=== PATIENT | male | born 1950 | race Caucasian/White ===

== ENCOUNTER 2017-11-16 18:08 | Emergency (ER) | payer OTHER ==
--- OUTSIDE RECORDS SUMMARY | 2017-11-16 18:10 | XMS REPORT ---
:1950 [facility] Address [address] [place] [address] Dr. Kwon [address] [place] [id number] Care Team Providers Name Role Phone DR COLLEEN BUTTS Unavailable Unavailable Problems This patient has no known problems. Allergies, Adverse Reactions, Alerts This patient has no known allergies or adverse reactions. Medications This patient has no known medications. Encounters Start End Encounter Admission Attending Care Care Encounter Date/Time Date/Time Type Type Clinicians Facility Department ID 2017-01-23 Inpatient [facility] RAD [id number] 08:00:00 MUSTAQ Results Test Description Test Time Test Comments Text Results Atomic Results Result Comments NM GASTRIC EMPTYING 2017-01-27 22:13:14 Examination: Nuclear medicine gastric STUDY W ISOTOPE emptying studyLocation code: [id number]: NoneDiscussion:Clinical history is remarkable for nausea, decreased appetite. After the oraladministration of 1.6 mCi of technetium 99m labeled sulfur colloid scrambledegg, dynamic [place] imaging is performed. Time to one half emptying is 27 minutes,rapid emptying.Impression:1. No evidence of gastroparesis. The emptying time slightly rapid.
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
[2017-11-16] MEDS ORDERED: HYDROCODONE/APAP 5/325 MG TAB ONE (22:28)
[2017-11-16 22:32] VITALS: TEMP 98.8
[2017-11-16 22:34] VITALS: BP 185/93; O2SAT 100
== END 2017-11-16 22:28 | disposition home or self-care (01) ==
LOC: ER 18:08
DX: M50.10 Cervical disc disorder with radiculopathy, unspecified cervical region (principal); V49.49XA Driver injured in collision with other motor vehicles in traffic accident, initial encounter; Z79.4 Long term (current) use of insulin; I10 Essential (primary) hypertension; E11.9 Type 2 diabetes mellitus without complications; E78.5 Hyperlipidemia, unspecified
CPT/HCPCS: 70450; 72125; 99284

== ENCOUNTER 2017-12-01 18:46 | Inpatient (IN) | payer OTHER ==
--- OUTSIDE RECORDS SUMMARY | 2017-12-01 18:48 | XMS REPORT ---
:1950 [facility] Address [address] [place] [address] Dr. Kwon [address] [place] [address] Care Team Providers Name Role Phone DR COLLEEN BUTTS Unavailable Unavailable Problems This patient has no known problems. Allergies, Adverse Reactions, Alerts This patient has no known allergies or adverse reactions. Medications This patient has no known medications. Encounters Start End Encounter Admission Attending Care Care Encounter Date/Time Date/Time Type Type Clinicians Facility Department ID 2017-01-23 Inpatient [facility] RAD [id number] 08:00:00 MUSTAQ Results Test Description Test Time Test Comments Text Results Atomic Results Result Comments NM GASTRIC EMPTYING 2017-01-27 22:13:14 Examination: Nuclear medicine gastric STUDY W ISOTOPE emptying studyLocation code: [id number]: NoneDiscussion:Clinical history is remarkable for nausea, decreased appetite. After the oraladministration of 1.6 mCi of technetium 99m labeled sulfur colloid scrambledegg, dynamic [place] imaging is performed. Time to one half emptying is 27 minutes,rapid emptying.Impression:1. No evidence of gastroparesis. The emptying time slightly rapid.
[2017-12-01] MEDS ORDERED: PANTOPRAZOLE 40 MG INJ ONE ×2 (19:37→20:24)
[2017-12-01] MEDS ORDERED: NA CHLORIDE 0.9% 1,000 ML ONE (19:37)
--- NOTE | 2017-12-01 19:50 | RAD REPORT ---
EXAM DESCRIPTION: CT - Head Brain Wo Cont - 12/01/2017 7:41 pm CLINICAL HISTORY: Dizziness, syncope COMPARISON: 11/16/2017 TECHNIQUE: All CT scans are performed using dose optimization technique as appropriate and may inclu de automated exposure control or mA/KV adjustment according to patient size. FINDINGS: No intracranial hemorrhage, hydrocephalus or extra-axial fluid collection.No areas of brai n edema or evidence of midline shift. The paranasal sinuses and mastoids are clear. The calvarium is intact. IMPRESSION: No acute intracranial abnormality.
--- NOTE | 2017-12-01 19:52 | RAD REPORT ---
EXAM DESCRIPTION: RAD - Chest Single View - 12/01/2017 7:46 pm CLINICAL HISTORY: Shortness of breath COMPARISON: 01/07/2017 FINDINGS: Portable technique limits examination quality. Moderate pleural and parenchymal opacification is in right lung base, most likely representing pneumo carloz. A small amount of left pleural fluid also likely present. The heart is upper limit normal size. No displaced fractures. IMPRESSION: Right lower lobe pneumonia.
[2017-12-01 19:58] LABS: Absolute Lymphocytes (CBC) 1.3 K/uL (0.7-4.9); Basophils % 0.5 % (0-1.3); MPV 7.3 fL (7.6-11.3)
[2017-12-01 20:03] LABS: Absolute Monocytes 0.7 K/uL (0.1-1.3); Eosinophils % 4.2 % (0-4.4); Hematocrit 22.7 % (39.6-49.0); Lymphocytes % 17.8 % (15.3-44.8); MCH 31.5 pg (27.0-35.0); MCV 93.3 fL (80-100); Monocytes % 9.2 % (3.3-12.3); RBC Red Blood Cell Count 2.43 M/uL (4.33-5.43)
[2017-12-01] MEDS ORDERED: ASPIRIN 81 MG CHEWABLE TABLET ONE (20:04)
[2017-12-01 20:05] LABS: Urine Blood TRACE (NEG); Urine Glucose TRACE (NEG); Urine Protein 3+ (NEG); Urine Specific Gravity 1.025 (1.005-1.030)
[2017-12-01 20:06] LABS: Protime INR 1.09
[2017-12-01 20:21] LABS: Potassium 4.3 mEq/L (3.6-5.0)
[2017-12-01 20:27] LABS: Albumin 2.8 g/dL (3.2-5.5); Bilirubin Direct 0.1 mg/dL (0-0.2); Bilirubin Total 0.7 mg/dL (0.3-1.2); Magnesium 1.8 mg/dL (1.8-2.5); Protein, Total 6.5 g/dL (6.0-8.3)
[2017-12-01 20:30] LABS: CKMB Creatine Kinase MB 3.9 ng/ml (0.3-4.0)
--- NOTE | 2017-12-01 20:32 | EDPHYS ---
Physician Documentation [facility] Name: Felipe Angelo Age: 67 yrs Sex: Male : 1950 Arrival Date: 12/01/2017 Time: 18:47 Bed 15 Private MD: ED Physician Yared Kate HPI: 12/01 19:27 This 67 yrs old Male presents to ER via Ambulatory with complaints of chase Shortness Of Breath. 19:27 The patient has shortness of breath at rest, with light activity. Onset: The chase symptoms/episode began/occurred 3 day(s) ago. Duration: The symptoms are continuous, and are steadily getting worse. Associated signs and symptoms: The patient has no apparent associated signs or symptoms. Severity of symptoms: At their worst the symptoms were mild moderate in the emergency department the symptoms. Historical: - Allergies: 18:54 No Known Allergies; tw2 - Home Meds: 18:54 citalopram 20 mg tab 1 tab once daily [Active]; gabapentin 400 mg Oral cap daily tw2 [Active]; insulin detemir 50 unit nightly [Active]; Lasix 80 mg Oral tab 1 tab once daily [Active]; Lipitor 80 mg Oral tab 1 tab once daily [Active]; lisinopril 40 mg Oral tab 1 tab once daily [Active]; metoprolol tartrate 50 mg Oral tab 2 times per day [Active]; - PMHx: 18:54 Diabetes - IDDM; Hyperlipidemia; Hypertension; Renal Disease; tw2 - PSHx: 18:54 amputation R R big toe; tw2 - Immunization history:: Adult Immunizations up to date. - Social history:: Smoking status: Patient uses tobacco products, smokes one pack cigarettes per day. - Family history:: not pertinent. ROS: 19:55 Constitutional: Negative for fever, chills, and weight loss, Eyes: Negative for injury, chase pain, redness, and discharge, ENT: Negative for injury, pain, and discharge, Neck: Negative for injury, pain, and swelling, Abdomen/GI: Negative for abdominal pain, nausea, vomiting, diarrhea, and constipation, Back: Negative for injury and pain, : Negative for injury, bleeding, discharge, and swelling, Skin: Negative for injury, rash, and discoloration, Neuro: Negative for headache, weakness, numbness, tingling, and seizure, Psych: Negative for depression, anxiety, suicide ideation, homicidal ideation, and hallucinations, Allergy/Immunology: Negative for hives, rash, and allergies, Endocrine: Negative for neck swelling, polydipsia, polyuria, polyphagia, and marked weight changes, Hematologic/Lymphatic: Negative for swollen nodes, abnormal bleeding, and unusual bruising. 19:55 Cardiovascular: Positive for chest pain. 19:55 Respiratory: Positive for cough, shortness of breath. 19:55 MS/extremity: Positive for swelling, of the right leg and left leg. Exam: 19:55 Constitutional: This is a well developed, well nourished patient who is awake, alert, chase and in no acute distress. Head/Face: Normocephalic, atraumatic. Eyes: Pupils equal round and reactive to light, extra-ocular motions intact. Lids and lashes normal. Conjunctiva and sclera are non-icteric and not injected. Cornea within normal limits. Periorbital areas with no swelling, redness, or edema. ENT: Nares patent. No nasal discharge, no septal abnormalities noted. Tympanic membranes are normal and external auditory canals are clear. Oropharynx with no redness, swelling, or masses, exudates, or evidence of obstruction, uvula midline. Mucous membranes moist. Neck: Trachea midline, no thyromegaly or masses palpated, and no cervical lymphadenopathy. Supple, full range of motion without nuchal rigidity, or vertebral point tenderness. No Meningismus. Chest/axilla: Normal chest wall appearance and motion. Nontender with no deformity. No lesions are appreciated. Cardiovascular: Regular rate and rhythm with a normal S1 and S2. No gallops, murmurs, or rubs. Normal PMI, no JVD. No pulse deficits. Respiratory: Lungs have equal breath sounds bilaterally, clear to auscultation and percussion. No rales, rhonchi or wheezes noted. No increased work of breathing, no retractions or nasal flaring. Abdomen/GI: Soft, non-tender, with normal bowel sounds. No distension or tympany. No guarding or rebound. No evidence of tenderness throughout. Back: No spinal tenderness. No costovertebral tenderness. Full range of motion. Male : Normal genitalia with no discharge or lesions. Skin: Warm, dry with normal turgor. Normal color with no rashes, no lesions, and no evidence of cellulitis. Neuro: Awake and alert, GCS 15, oriented to person, place, time, and situation. Cranial nerves II-XII grossly intact. Motor strength 5/5 in all extremities. Sensory grossly intact. Cerebellar exam normal. Normal gait. Psych: Awake, alert, with orientation to person, place and time. Behavior, mood, and affect are within normal limits. 19:55 Abdomen/GI: Inspection: abdomen appears normal, Bowel sounds: normal, Palpation: abdomen is soft and non-tender, Liver: no appreciated palpable abnormalities, Hernia: not appreciated. 19:55 Abdomen/GI: Rectal exam: is unremarkable, Prostate: normal, rectal tone normal, Stool: guaiac negative, hemorrhoid(s), are not appreciated, mass, is not appreciated, swelling, is not appreciated, tenderness, is not appreciated, the exam is chaperoned by the nurse. 19:55 Back: Exam negative for Vital Signs: 18:52 BP 167 / 69; Pulse 79; Resp 19; Temp 97.7(O); Pulse Ox 96% on R/A; Weight 108.86 kg tw2 (R); Height 6 ft. 0 in. (182.88 cm); Pain 0/10; 20:30 BP 158 / 91; Pulse 82; Resp 18; Pulse Ox 96% on 2 lpm NC; wh 22:14 BP 168 / 75; Pulse 83; Resp 18; Pulse Ox 97% on 2 lpm NC; wh 18:52 Body Mass Index 32.55 (108.86 kg, 182.88 cm) tw2 MDM: 19:[address] [facility] 19:57 Data reviewed: vital signs, nurses notes, lab test result(s), EKG, radiologic studies, [facility] CT scan, plain films, ultrasound. 12/01 19:27 Order name: Basic Metabolic Panel; Complete Time: 20:44 [facility] 12/01 19:27 Order name: BNP; Complete Time: 20:24 [facility] 12/01 19:27 Order name: CBC with Diff; Complete Time: 20:16 [facility] 12/01 19:27 Order name: Ckmb; Complete Time: 20:44 [facility] 12/01 19:27 Order name: CPK; Complete Time: 20:44 [facility] 12/01 19:27 Order name: LFT's; Complete Time: 20:44 [facility] 12/01 19:27 Order name: Magnesium; Complete Time: 20:44 [facility] 12/01 19:27 Order name: PT-INR; Complete Time: 20:16 [facility] 12/01 19:27 Order name: Ptt, Activated; Complete Time: 20:16 [facility] 12/01 19:27 Order name: Troponin (emerg Dept Use Only); Complete Time: 20:21 [facility] 12/01 19:27 Order name: Lipase; Complete Time: 20:44 [facility] 12/01 19:27 Order name: Type And Screen [facility] 12/01 19:27 Order name: Procalcitonin; Complete Time: 20:31 [facility] 12/01 19:27 Order name: Blood Culture Adult (2) [facility] 12/01 19:27 Order name: XRAY Chest (1 view); Complete Time: 20:16 [facility] 12/01 19:27 Order name: Urine Culture [facility] 12/01 20:04 Order name: Urine Dipstick--Ancillary (enter results); Complete Time: 20:16 rg2 12/01 20:39 Order name: Packed RBC Leukored -1 [facility] 12/01 20:42 Order name: Hematocrit [facility] 12/01 20:42 Order name: Hemoglobin [facility] 12/01 20:43 Order name: Retic Count [facility] 12/01 20:43 Order name: Folic Acid,Serum (folate) [facility] 12/01 20:43 Order name: B12 [facility] 12/01 20:43 Order name: Ferritin [facility] 12/01 20:43 Order name: TIBC [facility] 12/01 20:43 Order name: Retic Count [facility] 12/01 20:55 Order name: ABO/RH no charge [facility] 12/01 19:27 Order name: EKG; Complete Time: 19:28 [facility] 12/01 19:27 Order name: Cardiac monitoring; Complete Time: 19:32 [facility] 12/01 19:27 Order name: EKG - Nurse/Tech; Complete Time: 19:32 [facility] 12/01 19:27 Order name: IV Saline Lock; Complete Time: 19:32 [facility] 12/01 19:27 Order name: Labs collected and sent; Complete Time: 19:32 [facility] 12/01 19:27 Order name: O2 Per Protocol; Complete Time: 19:32 [facility] 12/01 19:27 Order name: O2 Sat Monitoring; Complete Time: 19:32 [facility] 12/01 19:27 Order name: Urine Dipstick-Ancillary (obtain specimen); Complete Time: 19:32 [facility] 12/01 19:27 Order name: CT Head Brain wo Cont; Complete Time: 20:16 [facility] 12/01 19:57 Order name: US Extremity Venou Bilateral [facility] 12/01 20:33 Order name: Frazier: visc lidocaine; Complete Time: 21:43 [facility] 12/01 20:39 Order name: CONS Physician Consult [facility] 12/01 20:39 Order name: CONS Physician Consult [facility] 12/01 20:39 Order name: Renal Ultrasound-Complete [facility] 12/01 20:42 Order name: Echo with Doppler EDMS Administered Medications: 20:22 Drug: ProTONIX 40 mg Route: IVP; Site: right antecubital; 23:00 Follow up: Response: No adverse reaction 20:22 Drug: NS 0.9% 1000 ml Route: IV; Rate: 125 ml/hr; Site: right antecubital; 22:58 Follow up: Response: No adverse reaction; IV Status: Infusion continued upon admission 20:22 Drug: Aspirin 81 mg Route: PO; 22:58 Follow up: Response: No adverse reaction 21:39 Drug: AtroVENT Aerosol 0.5 mg Route: Inhalation; 21:40 Drug: Xopenex 2.5 mg Route: Inhalation; 21:41 Drug: Rocephin - (cefTRIAXone) 1 grams {Note: Substituted with Rocephine 1 gm IVP.} Route: IVPB; Infused Over: 30 mins; Site: right antecubital; 22:58 Follow up: Response: No adverse reaction; IV Status: Completed infusion 21:41 Drug: ProTONIX 40 mg Route: IVP; Site: right antecubital; 22:57 Follow up: Response: No adverse reaction 21:41 Drug: Lasix 40 mg Route: IVP; Site: right antecubital; 22:56 Follow up: Response: No adverse reaction 21:42 Drug: Zithromax 500 mg Route: IVPB; Infused Over: 1 hrs; Site: right antecubital; 22:57 Follow up: Response: No adverse reaction; IV Status: Completed infusion Disposition: 12/01/17 20:31 Hospitalization ordered by Leilani Mcclure for Inpatient Admission. Preliminary diagnosis are Dyspnea, Pleural effusion in conditions classified elsewhere, Unspecified kidney failure, Type 1 diabetes mellitus, Anemia, unspecified. - Bed requested for Telemetry/MedSurg (Inpatient). - Status is Inpatient Admission. - Condition is Fair. - Problem is new. - Symptoms have improved. UTI on Admission? No Signatures: Dispatcher [employer] EDMS Yared Kate MD MD cha Garcia, Cindy, RN RN Casandra Chavez RN RN tw2 Mónica Bedoya Corrections: (The following items were deleted from the chart) 20: 20:41 Packed RBC Leukored -1 ordered. [facility] EDMS :47 20:42 ABO/RH typing ordered. [facility] EDMS :47 20:42 Antibody Screen ordered. [facility] EDMS
--- NOTE | 2017-12-01 20:32 | ER ---
Nurse's Notes [facility] Name: Felipe Angelo Age: 67 yrs Sex: Male : 1950 Arrival Date: 12/01/2017 Time: 18:47 Bed 15 Private MD: Diagnosis: Dyspnea;Pleural effusion in conditions classified elsewhere;Unspecified kidney failure;Type 1 diabetes mellitus;Anemia, unspecified Presentation: 12/01 18:52 Presenting complaint: Patient states: i have been having really bad periods of tw2 shortness of breath since , i used my wifes raúl, but today its just really bad. Transition of care: patient was not received from another setting of care. Onset of symptoms was December 01, 2017. Care prior to arrival: None. 18:52 Method Of Arrival: Ambulatory tw2 18:52 Acuity: SINDHU 3 tw2 Triage Assessment: 20:15 Respiratory: Onset: The symptoms/episode began/occurred gradually, the patient has mild wh shortness of breath. Historical: - Allergies: 18:54 No Known Allergies; tw2 - Home Meds: 18:54 citalopram 20 mg tab 1 tab once daily [Active]; gabapentin 400 mg Oral cap daily tw2 [Active]; insulin detemir 50 unit nightly [Active]; Lasix 80 mg Oral tab 1 tab once daily [Active]; Lipitor 80 mg Oral tab 1 tab once daily [Active]; lisinopril 40 mg Oral tab 1 tab once daily [Active]; metoprolol tartrate 50 mg Oral tab 2 times per day [Active]; - PMHx: 18:54 Diabetes - IDDM; Hyperlipidemia; Hypertension; Renal Disease; tw2 - PSHx: 18:54 amputation R R big toe; tw2 - Immunization history:: Adult Immunizations up to date. - Social history:: Smoking status: Patient uses tobacco products, smokes one pack cigarettes per day. - Family history:: not pertinent. Screenin:15 Abuse screen: Denies threats or abuse. Denies injuries from another. Nutritional wh screening: No deficits noted. Tuberculosis screening: No symptoms or risk factors identified. Fall Risk None identified. Assessment: 19:50 General: Appears in no apparent distress. comfortable, Behavior is calm, cooperative, wh appropriate for age. Pain: Denies pain. Neuro: Level of Consciousness is awake, alert, obeys commands, Oriented to person, place, time, situation, [employer]culation Technician are equal bilaterally. Cardiovascular: Denies chest pain. Cardiovascular: Heart tones S1 S2 present Edema is 2+ to left midcalf, left ankle, right midcalf and right ankle pitting to left midcalf, left ankle, right midcalf and right ankle Rhythm is sinus rhythm. Respiratory: Reports shortness of breath Airway is patent Respiratory effort is even, unlabored, Respiratory pattern is regular, symmetrical, Breath sounds with wheezes. GI: Abdomen is round non-distended, Abd is soft and non tender. : No signs and/or symptoms were reported regarding the genitourinary system. EENT: No signs and/or symptoms were reported regarding the EENT system. Derm: No signs and/or symptoms reported regarding the dermatologic system. Musculoskeletal: Range of motion: intact in all extremities. 21:03 Reassessment: Patient appears in no apparent distress at this time. Patient and/or wh family updated on plan of care and expected duration. Pain level reassessed. Patient is alert, oriented x 3, equal unlabored respirations, skin warm/dry/pink. Patient denies pain at this time. 22:11 Reassessment: Patient appears in no apparent distress at this time. Patient and/or wh family updated on plan of care and expected duration. Pain level reassessed. Patient is alert, oriented x 3, equal unlabored respirations, skin warm/dry/pink. Patient denies pain at this time. 22:38 Musculoskeletal: Amputation of right toe. 22:53 Reassessment:. Vital Signs: 18:52 BP 167 / 69; Pulse 79; Resp 19; Temp 97.7(O); Pulse Ox 96% on R/A; Weight 108.86 kg tw2 (R); Height 6 ft. 0 in. (182.88 cm); Pain 0/10; 20:30 BP 158 / 91; Pulse 82; Resp 18; Pulse Ox 96% on 2 lpm NC; wh 22:14 BP 168 / 75; Pulse 83; Resp 18; Pulse Ox 97% on 2 lpm NC; 18:52 Body Mass Index 32.55 (108.86 kg, 182.88 cm) tw2 ED Course: 18:47 Patient arrived in ED. as 18:52 Triage completed. tw2 18:53 Arm band placed on. tw2 18:53 Bed in low position. Call light in reach. Pulse ox on. NIBP on. tw2 19:12 Yared Kate MD is Attending Physician. chase 19:31 Mónica Bedoya is Primary Nurse. wh 19:41 CT Head Brain wo Cont In Process Unspecified. EDMS 19:45 Inserted saline lock: 20 gauge in right antecubital area, using aseptic technique. oe Blood collected. 19:46 XRAY Chest (1 view) In Process Unspecified. EDMS 19:46 X-ray completed. Patient tolerated procedure well. kc2 19:46 Patient moved back from radiology. kc2 20:29 Leilani Mcclure MD is Hospitalizing Provider. chase 20:52 US Extremity Venou Bilateral In Process Unspecified. EDMS 21:05 Ultrasound completed. Patient tolerated well. hr 22:05 Frazier cath inserted, using sterile technique, 18 Fr., by me, Patient tolerated well. oe 23:00 No provider procedures requiring assistance completed. Patient admitted, IV remains in place. Administered Medications: 20:22 Drug: ProTONIX 40 mg Route: IVP; Site: right antecubital; 23:00 Follow up: Response: No adverse reaction 20:22 Drug: NS 0.9% 1000 ml Route: IV; Rate: 125 ml/hr; Site: right antecubital; 22:58 Follow up: Response: No adverse reaction; IV Status: Infusion continued upon admission 20:22 Drug: Aspirin 81 mg Route: PO; 22:58 Follow up: Response: No adverse reaction 21:39 Drug: AtroVENT Aerosol 0.5 mg Route: Inhalation; 21:40 Drug: Xopenex 2.5 mg Route: Inhalation; 21:41 Drug: Rocephin - (cefTRIAXone) 1 grams {Note: Substituted with Rocephine 1 gm IVP.} Route: IVPB; Infused Over: 30 mins; Site: right antecubital; 22:58 Follow up: Response: No adverse reaction; IV Status: Completed infusion 21:41 Drug: ProTONIX 40 mg Route: IVP; Site: right antecubital; 22:57 Follow up: Response: No adverse reaction 21:41 Drug: Lasix 40 mg Route: IVP; Site: right antecubital; 22:56 Follow up: Response: No adverse reaction 21:42 Drug: Zithromax 500 mg Route: IVPB; Infused Over: 1 hrs; Site: right antecubital; 22:57 Follow up: Response: No adverse reaction; IV Status: Completed infusion Outcome: 20:31 Decision to Hospitalize by Provider. [facility] 23:00 Admitted to Tele accompanied by tech, via stretcher, room 423, with oxygen, with chart, Report called to Savannah Luna RN 23:00 Condition: good 23:00 Instructed on the need for admit. 23:01 Patient left the ED. Signatures: Dispatcher [employer] EDMS Yared Kate MD MD cha Rod, Tanya Corado Tara, JACIEL RN tw2 Madyson Muñoz kc2 Jono Allison Winsy Corrections: (The following items were deleted from the chart) 22:13 22:05 Frazier cath inserted, using sterile technique, 18 Fr., Patient tolerated well. oe oe 22:40 19:50 Derm: No signs and/or symptoms reported regarding the dermatologic system. [facility]
[2017-12-01] MEDS ORDERED: SODIUM CHLORIDE 0.9% 10ML INJ IV PRN (20:38)
[2017-12-01] MEDS ORDERED: GLUCAGON 1 MG/VIAL IM PRN (20:38)
[2017-12-01] MEDS ORDERED: D50W 25 GM/50 ML SYRINGE IV PRN (20:38)
--- NOTE | 2017-12-01 20:57 | RAD REPORT ---
EXAM DESCRIPTION: VAS - Extrem Venous W Compress Philippe - 12/01/2017 8:51 pm CLINICAL HISTORY: Bilateral leg edema and swelling. COMPARISON: None. TECHNIQUE: Real-time sonographic interrogation of the left and right lower extremity deep venous sys tems was performed. FINDINGS: Normal compressibility, flow augmentation, phasic flow and spontaneous flow is identified in both the left and right lower extremity deep venous systems. IMPRESSION: No sonographic evidence of left or right lower extremity deep venous thrombosis.
[2017-12-01] MEDS: INSULIN -REGULAR HUMAN 50 UNIT/0.5 ML ML SQ SCH (21:00)
--- NOTE | 2017-12-01 21:11 | RAD REPORT ---
EXAM DESCRIPTION: US - Renal Ultrasound-Complete - 12/01/2017 9:05 pm CLINICAL HISTORY: Renal failure. COMPARISON: None. FINDINGS: Both kidneys are normal in size, shape and echotexture. The right kidney measures 11.4 x 5.8 x 5.6 cm. No hydronephrosis, focal mass or perinephric fluid. The left kidney measures 12.0 x 6.2 x 5.7 cm. No hydronephrosis, focal mass or perinephric fluid. IMPRESSION: Unremarkable renal sonogram.
[2017-12-01] MEDS ORDERED: IPRATROPIUM BROM 0.5MG/2.5ML ONE (21:14)
[2017-12-01] MEDS ORDERED: FUROSEMIDE 40 MG/4 ML VIAL ONE (21:15)
[2017-12-01] MEDS ORDERED: CEFTRIAXONE/SWI 1gm 1 GM/10 ML SYR ONE (21:15)
[2017-12-01] MEDS ORDERED: AZITHROMYCIN 500 MG/250 ML BAG ONE (21:15)
[2017-12-01] MEDS ORDERED: LEVALBUTEROL 1.25 MG/3 ML NEB ONE (21:15)
[2017-12-01] MEDS ORDERED: LIDOCAINE VISCOUS 2% SOLN 15 ML UDC ONE (21:16)
[2017-12-01] MEDS ORDERED: ALBUTEROL 2.5 MG/3 ML NEB SOL NEB PRN (21:18)
[2017-12-01] MEDS ORDERED: IPRATROPIUM BROM 0.5MG/2.5ML NEB PRN (21:21)
[2017-12-01 21:35] LABS: RBC Red Blood Cell Count 2.72 M/uL (4.33-5.43)
[2017-12-01] MEDS: NA CHLORIDE 0.9% 1,000 ML IV SCH (22:00)
[2017-12-01 22:07] LABS: Ferritin 235.5 ng/ml (23.9-336.2)
[2017-12-02] MEDS ORDERED: NA CHLORIDE 0.9% 500 ML ONE (00:21)
[2017-12-02] MEDS ORDERED: LEVALBUTEROL 1.25 MG/3 ML NEB NEB SCH (02:00)
[2017-12-02] MEDS ORDERED: IPRATROPIUM BROM 0.5MG/2.5ML NEB SCH (02:00)
[2017-12-02] MEDS: ACETAMINOPHEN 500 MG TAB PO PRN (02:54)
[2017-12-02] MEDS ORDERED: NA CHLORIDE 0.9% 250 ML ONE (04:10)
--- NOTE | 2017-12-02 07:00 | P.HP ---
Certification for Inpatient Patient admitted to: Inpatient With expected LOS: >2 Midnights Patient will require the following post-hospital care: None Practitioner: I am a practitioner with admitting privileges, knowledge of patient current condition, hospital course, and medical plan of care. Services: Services provided to patient in accordance with Admission requirements found in Title 42 Section 412.3 of the Code of Federal Regulations Patient History Date of Service: 12/01/17 Reason for admission: Shortness of breath History of Present Illness: Patient is a 67-year-old gentleman who came to the hospital with difficulty breathing. Patient's respiratory status has worsened over the last few days. He says his breathing has been worse that he has been trying uses 's inhalers with little improvement. Patient has been following up with Dr. Colunga, and has been told that his renal function is down to a GFR of 13. Patient will probably need hemodialysis this year. However, he has not followed up in the last couple of months. On admission patient was found have anemia with worsening renal function. Patient's GFR is down to 10. Patient is also anemic which is probably related to his chronic kidney disease. Patient be admitted to the hospital for further evaluation. Allergies No Known Allergies Allergy (Verified 12/01/17 22:29) Home Medications: Amlodipine Besylate 10 mg PO DAILY 12/02/17 Aspirin [Aspir-Low] 81 mg PO DAILY 12/02/17 Atorvastatin Calcium [Lipitor] 80 mg PO DAILY 12/02/17 Citalopram Hydrobromide [Celexa] 20 mg PO DAILY 12/02/17 Docosahexanoic AC/Epa [Fish Oil 1,000 MG CAP] 1,000 mg PO BID 12/02/17 Ergocalciferol (Vitamin D2) [Ergocal] 5,000 unit PO EVERY 7TH DAY 12/02/17 Ferrous Gluconate 324 mg PO BID 12/02/17 Ferrous Sulfate [Ferrous Sulfate*] 325 mg PO BID 12/02/17 Furosemide [Lasix] 80 mg PO DAILY 12/02/17 Hydralazine HCl [Apresoline] 100 mg PO QID 12/02/17 Insulin Detemir [Levemir*] 40 unit SQ BEDTIME 12/02/17 Metoprolol Tartrate 50 mg PO BID 12/02/17 Minoxidil 2.5 mg PO DAILY 12/02/17 Multivitamin [Multiple Vitamins] 1 tab PO DAILY 12/02/17 Pantoprazole [Protonix Tab*] 40 mg PO DAILY 12/02/17 Sodium Bicarbonate 650 mg PO BID 12/02/17 - Past Medical/Surgical History Has patient received pneumonia vaccine in the past: No Diabetic: Yes -: Diabetes -: HTN -: Neuropathy -: CRD -: PVD -: Iron deficiency anemia -: Malnutrition -: Chronic kidney disease stage 5 -: Right great toe amputation - Family History Mother Medical History: Hypertension, Cancer Notes: Throat cancer, HTN Father Medical History: Hypertension, Other (see notes) Notes: CHF - Social History Smoking Status: Former smoker Alcohol use: No CD- Drugs: No Caffeine use: Yes Place of Residence: Home Review of Systems 10-point ROS is otherwise unremarkable Physical Examination - Vital Signs Temperature: 97.0 F Blood Pressure: 161/78 Pulse: 78 Respirations: 19 Pulse Ox (%): 96 - Physical Exam General: Alert, In no apparent distress, Oriented x3 HEENT: Atraumatic, PERRLA, Mucous membr. moist/pink, EOMI, Sclerae nonicteric Neck: Supple, 2+ carotid pulse no bruit, No LAD, Without JVD or thyroid abnormality Respiratory: Clear to auscultation bilaterally, Normal air movement Cardiovascular: Regular rate/rhythm, Normal S1 S2, No murmurs Gastrointestinal: Normal bowel sounds, Soft and benign, Non-distended, No tenderness Musculoskeletal: No clubbing, No swelling, No tenderness Integumentary: No rashes Neurological: Normal gait, Normal speech, Normal strength at 5/5 x4 extr, Normal tone, Sensation intact, Cranial nerves 3-12 intact, Normal affect Lymphatics: No axilla or inguinal lymphadenopathy - Studies Laboratory Data (last 24 hrs) 12/01/17 19:30: PT 12.9 H, INR 1.09, APTT 30.0 12/01/17 19:30: WBC 7.4, Hgb 7.6 L*, Hct 22.7 L, Plt Count 239 12/01/17 19:30: B-Natriuretic Peptide 1350 H 12/01/17 19:30: Sodium 136, Potassium 4.3, BUN 36 H, Creatinine 5.48 H*, Glucose 77, Magnesium 1.8, Total Bilirubin 0.7, AST 24, ALT 16, Alkaline Phosphatase 109, Lipase 18 L Assessment & Plan - Problems (Diagnosis) (1) Acute kidney injury superimposed on CKD Onset Date: 01/05/17 Current Visit: No Status: Acute (2) Diabetes mellitus Onset Date: 01/05/17 Current Visit: No Status: Acute Qualifiers: Diabetes mellitus type: type 2 Diabetes mellitus half-way insulin use: with half-way use Diabetes mellitus complication status: with skin complications Diabetes mellitus complication detail: with foot ulcer Qualified Code(s): E11.621 - Type 2 diabetes mellitus with foot ulcer; L97.509 - Non-pressure chronic ulcer of other part of unspecified foot with unspecified severity; Z79.4 - bar host/hostess (current) use of insulin (3) Anemia Current Visit: No Status: Chronic Qualifiers: Anemia type: other cause Other causes of anemia: chronic disease, kidney Qualified Code(s): N18.9 - Chronic kidney disease, unspecified; D63.1 - Anemia in chronic kidney disease (4) Depression with anxiety Current Visit: No Status: Chronic (5) HTN (hypertension) Onset Date: 01/05/17 Current Visit: No Status: Chronic Qualifiers: Hypertension type: essential hypertension Qualified Code(s): I10 - Essential (primary) hypertension (6) Hyperlipidemia Current Visit: No Status: Chronic Qualifiers: Hyperlipidemia type: unspecified Qualified Code(s): E78.5 - Hyperlipidemia , unspecified (7) Neuropathy Current Visit: No Status: Chronic (8) Obesity Current Visit: No Status: Chronic Qualifiers: Obesity type: unspecified obesity type Qualified Code(s): E66.9 - Obesity, unspecified (9) Coronary artery disease Current Visit: No Status: Suspected Qualifiers: Coronary Disease-Associated Artery/Lesion type: unspecified vessel or lesion type [place] vs. transplanted heart: unspecified whether [place] or transplanted heart Associated angina: angina presence unspecified Qualified Code(s): I25.10 - Atherosclerotic heart disease of [place] coronary artery without angina pectoris (10) PVD (peripheral vascular disease) Current Visit: No Status: Suspected (11) Tobacco abuse Onset Date: 01/05/17 Current Visit: No Status: Resolved - Plan Plan: 1. Transfuse 1 unit of packed red blood cells 2. Monitor renal function closely 3. Renal ultrasound 4. Nephrology consultation 5. Patient may need hemodialysis. Will discuss with nephrology 6. Strict Is&Os 7. GI and DVT prophylaxis Discharge Plan: Home Plan to discharge in: Greater than 2 days - Advance Directives Does patient have a Living Will: No Does patient have a Durable POA for Healthcare: No - Code Status/Comfort Care Code Status Assessed: Yes Code Status: Full Code Critical Care: No Time Spent Managing PTS Care (In Minutes): 50
[2017-12-02] MEDS: INSULIN -REGULAR HUMAN 50 UNIT/0.5 ML ML SQ SCH ×4 (07:30→21:00)
--- NOTE | 2017-12-02 07:59 | EKG ---
Test Date: 2017-12-01 Test Time: 20:03:34 Machine Design Engineer: MARIBEL MEASUREMENT RESULTS: Intervals: Rate: 76 GA: 174 QRSD: 116 QT: 432 QTc: 486 [place]: P: 32 GA: 174 QRS: 58 T: 29 INTERPRETIVE STATEMENTS: Normal sinus rhythm Left ventricular hypertrophy with QRS widening Prolonged QT Abnormal ECG Compared to ECG 01/03/2017 20:31:14 Left ventricular hypertrophy now present Prolonged QT interval now present Sinus tachycardia no longer present ST (T wave) deviation no longer present Electronically Signed On 12-02-17 07:58:24 CDT by Tyrell Fountain
[2017-12-02] MEDS: ATORVASTATIN 80 MG TAB PO SCH (08:42)
[2017-12-02] MEDS: METOPROLOL TAR 50 MG TAB PO SCH ×2 (08:42→21:02)
[2017-12-02] MEDS: CITALOPRAM 10 MG TABLET PO SCH (08:42)
[2017-12-02] MEDS: MINOXIDIL 2.5 MG TAB PO SCH (08:42)
[2017-12-02] MEDS: PANTOPRAZOLE 40MG TABLET PO SCH (08:43)
[2017-12-02] MEDS: DOCOSAHEXANOIC AC/EPA 1000 MG PO SCH ×2 (08:43→21:02)
[2017-12-02] MEDS: HYDRALAZINE HCL 25 MG TABLET PO SCH ×4 (08:43→21:02)
[2017-12-02] MEDS: AMLODIPINE 10 MG TAB PO SCH (08:43)
[2017-12-02] MEDS ORDERED: SODIUM BICARB 325 MG TAB PO SCH (09:00)
[2017-12-02] MEDS ORDERED: PANTOPRAZOLE 40 MG INJ IVP SCH (09:00)
[2017-12-02] MEDS ORDERED: FERROUS SULFATE 325 MG TAB PO SCH (09:00)
[2017-12-02] MEDS ORDERED: FUROSEMIDE 40 MG TABLET PO SCH (09:00)
[2017-12-02] MEDS: NA CHLORIDE 0.9% 1,000 ML IV SCH (09:27)
[2017-12-02] MEDS ORDERED: FUROSEMIDE 40 MG/4 ML VIAL IV ONE (10:20)
--- NOTE | 2017-12-02 11:06 | P.PN ---
Subjective Date of Service: 12/02/17 Chief Complaint: Shortness of breath Patient seen and examined at bedside with RN. Chart reviewed. Case discussed with nephrology. Currently patient states that he is still short of breath however oxygen is helping him. The patient has fluids running and has blood transfusion ordered as well. Review of Systems 10-point ROS is otherwise unremarkable Physical Examination - Vital Signs Temperature: 98.3 F Blood Pressure: 162/67 Pulse: 90 Respirations: 20 Pulse Ox (%): 96 - Physical Exam General: Alert, Oriented x3, Mild distress HEENT: Atraumatic, PERRLA, EOMI Neck: Supple, JVD not distended Respiratory: Clear to auscultation bilaterally, Normal air movement Cardiovascular: Regular rate/rhythm, Normal S1 S2 Gastrointestinal: Normal bowel sounds, No tenderness Musculoskeletal: No tenderness Integumentary: No rashes Neurological: Normal speech, Normal tone, Normal affect Lymphatics: No axilla or inguinal lymphadenopathy - Studies Laboratory Data (last 24 hrs) 12/01/17 19:30: PT 12.9 H, INR 1.09, APTT 30.0 12/01/17 19:30: WBC 7.4, Hgb 7.6 L*, Hct 22.7 L, Plt Count 239 12/01/17 19:30: B-Natriuretic Peptide 1350 H 12/01/17 19:30: Sodium 136, Potassium 4.3, BUN 36 H, Creatinine 5.48 H*, Glucose 77, Magnesium 1.8, Total Bilirubin 0.7, AST 24, ALT 16, Alkaline Phosphatase 109, Lipase 18 L Medications List Reviewed: Yes Assessment & Plan - Problems (Diagnosis) (1) Acute kidney injury superimposed on CKD Onset Date: 12/02/17 Current Visit: No Status: Acute Plan: Acute on CKD -Nephrology Consulted. Appreciated Reccs -Cr is elevated with acute anemia. -Most likely will need to be started on dialysis -General Surgery Consulted for catheter Placement -IV lasix BID for now (2) Anemia Onset Date: 12/02/17 Current Visit: No Status: Chronic Plan: Anemia of chronic disease most likely 2.2 to CKD -Currently ordered for 2 PRBC blood transfusion -Will F/U with Repeat H/H Qualifiers: Anemia type: due to chronic kidney disease Chronic kidney disease stage: stage 5, not on chronic dialysis Qualified Code(s): N18.5 - Chronic kidney disease, stage 5; D63.1 - Anemia in chronic kidney disease; D63.1 - Anemia in chronic kidney disease (3) Diabetes mellitus Onset Date: 12/02/17 Current Visit: No Status: Chronic Qualifiers: Diabetes mellitus type: type 2 Diabetes mellitus senior living insulin use: with termite renewal inspector use Diabetes mellitus complication status: with skin complications Diabetes mellitus complication detail: with foot ulcer Qualified Code(s): E11.621 - Type 2 diabetes mellitus with foot ulcer; L97.509 - Non-pressure chronic ulcer of other part of unspecified foot with unspecified severity; Z79.4 - USP (current) use of insulin (4) HTN (hypertension) Onset Date: 12/02/17 Current Visit: No Status: Chronic Qualifiers: Hypertension type: essential hypertension Qualified Code(s): I10 - Essential (primary) hypertension (5) Hyperlipidemia Onset Date: 12/02/17 Current Visit: No Status: Chronic Qualifiers: Hyperlipidemia type: mixed hyperlipidemia Qualified Code(s): E78.2 - Mixed hyperlipidemia (6) Coronary artery disease Onset Date: 12/02/17 Current Visit: No Status: Chronic Qualifiers: Coronary Disease-Associated Artery/Lesion type: unspecified vessel or lesion type [place] vs. transplanted heart: unspecified whether [place] or transplanted heart Associated angina: angina presence unspecified Qualified Code(s): I25.10 - Atherosclerotic heart disease of [place] coronary artery without angina pectoris (7) PVD (peripheral vascular disease) Onset Date: 12/02/17 Current Visit: No Status: Chronic Discharge Plan: Home Plan to discharge in: 48 Hours - Code Status/Comfort Care Code Status Assessed: Yes Critical Care: No
[2017-12-02 11:14] LABS: Absolute Lymphocytes (CBC) 0.9 K/uL (0.7-4.9); Absolute Monocytes 0.6 K/uL (0.1-1.3); Absolute Neutrophil 5.5 K/uL (1.8-8.0); Basophils % 0.6 % (0-1.3); Hematocrit 25.9 % (39.6-49.0); Lymphocytes % 11.8 % (15.3-44.8); MCV 91.7 fL (80-100); MPV 7.1 fL (7.6-11.3); Monocytes % 8.1 % (3.3-12.3); RBC Red Blood Cell Count 2.83 M/uL (4.33-5.43)
[2017-12-02 11:36] LABS: Albumin 2.7 g/dL (3.2-5.5); Bilirubin Total 0.7 mg/dL (0.3-1.2); Magnesium 1.7 mg/dL (1.8-2.5); Phosphorus 4.5 mg/dL (2.5-4.3); Potassium 3.9 mEq/L (3.6-5.0); Protein, Total 6.3 g/dL (6.0-8.3)
--- NOTE | 2017-12-02 13:02 | ECHO ---
HEIGHT: 6 ft 0 in WEIGHT: 226 lb 14.4 oz DATE OF STUDY: 12/02/[address]: Yared Kate MD 2-DIMENSIONAL: YES M.MODE: YES DOPPLER: YES COLOR FLOW: YES TDS: NO PORTABLE: NO DEFINITY: NO BUBBLE STUDY: NO DIAGNOSIS: CONGESTIVE HEART FAILURE CARDIAC HISTORY: CATHERIZATION: NO SURGERY: NO PROSTHETIC VALVE: NO PACEMAKER: NO MEASUREMENTS (cm) DIASTOLIC (NORMALS) SYSTOLIC (NORMALS) IVSd 1.3 (0.6-1.2) LA Diam 4.8 (1.9-4.0) LVEF 55-60% LVIDd 5.5 (3.5-5.7) LVIDs 4.2 (2.0-3.5) %FS 23% LVPWd 1.4 (0.6-1.2) Ao Diam 3.1 (2.0-3.7) 2 DIMENSIONAL ASSESSMENT: RIGHT ATRIUM: NORMAL LEFT ATRIUM: DILATED RIGHT VENTRICLE: NORMAL LEFT VENTRICLE: NORMAL TRICUSPID VALVE: NORMAL MITRAL VALVE: NORMAL PULMONIC VALVE: NORMAL AORTIC VALVE: MILD SCLEROSIS PERICARDIAL EFFUSION: NONE AORTIC ROOT: NORMAL. LEFT VENTRICULAR WALL MOTION: NORMAL. DOPPLER/COLOR FLOW: MILD AORTIC, MITRAL REGURGITATION. NO AORTIC STENOSIS. COMMENTS: NORMAL LEFT VENTRICULAR EJECTION FRACTION. DILATED LEFT ATRIUM. MILD AORTIC AND MITRAL REGURGITATION. AORTIC SCLEROSIS WITH NO AORTIC STENOSIS. TECHNOLOGIST: RIO ANTONIO
[2017-12-02] MEDS: SODIUM BICARB 325 MG TAB PO SCH ×2 (14:12→21:01)
[2017-12-02] MEDS: ONDANSETRON 4 MG/2 ML VIAL IV PRN (17:15)
[2017-12-02] MEDS: FUROSEMIDE 40 MG/4 ML VIAL IV SCH (17:16)
--- NOTE | 2017-12-02 18:20 | CON ---
Date of Consultation: 12/02/2017 Additional Consulting Physician: Dr. Zabala. Reason For Consultation: Anasarca, elevated BUN and creatinine, fluid management. History Of Present Illness: This is a pleasant, 67-year-old gentleman, well known to me from the off ice with significant past medical history of diabetes, complicated with neuropathy and nephropathy, h ypertension, hyperlipidemia, peripheral neuropathy status post toe amputation on the right back last year. Chronic kidney disease, stage 5, poor compliance secondary to diabetes nephropathy with nephrotic ran ge proteinuria. Poor follow up. The patient, according to him, he was in his regular state of healt h. In the last few days, the patient developed shortness of breath and increased leg swelling last c ouple of months. For that reason, he came to the emergency room. In the emergency room, found to mancuso ve anasarca, hypertension, severely anemic. Hemoglobin down to the 7 and his creatinine aminta to 5. For that reason, the patient received transfusion. The patient denied taking any nonsteroidal. No I V contrast. Past Medical History: Include, 1.Hypertension. 2.Diabetes complicated with neuropathy and nephropathy. 3.Hyperlipidemia. 4.Chronic kidney disease, stage 5, secondary to diabetes nephropathy with nephrotic range proteinuri a. The patient does not have any coronary artery history, has ejection fraction, last year had 55 ej ection fraction. Home Medications: Include, 1.Norvasc. 2.Minoxidil 2.5. 3.Ferrous sulfate. 4.Lasix. 5.Atorvastatin. 6.Hydralazine. 7.Insulin. 8.Metoprolol. 9.Multivitamin. 10.Ergocalciferol. Current Medication: In the hospital include, 1.Albuterol. 2.Amlodipine. 3.Citalopram. 4.Fish oil. 5.Lasix p.o. b.i.d. 6.Hydralazine. 7.Metoprolol. 8.Minoxidil. 9.Pantoprazole. 10.Sodium bicarb 650 b.i.d. 11.Insulin. 12.Cholecalciferol. Review of Systems: Head and Neck: No red eye. No ear pain. GI: No nausea, no vomiting. : No polyuria. No dysuria. No hematuria. PROCESS ENGINEERING MANAGER: Not applicable. Respiratory: Has shortness of breath. Cardiovascular: Has leg swelling. Has anasarca. Endocrine: No polydipsia. Skin: No rash. Neuro: Has neuropathy. Musculoskeletal: Generalized body ache. Social History: Ex-smoker, denied alcohol, denied drug abuse. Family History: Positive for diabetes. Past Surgical History: Include toe amputation. Physical Examination: General: When I saw the patient, the patient was lying in bed, shortness of breath. Vital Signs: Blood pressure of 162/67, pulse of 90, afebrile. Chest: Crackles bilateral. Heart: S1, S2. Systolic murmur. Abdomen: Soft, nontender. Extremities: +3 edema. Amputation on the right big toe. Laboratory Data: WBC 7.3, H and H 9.1/25.9, platelet 233. H and H has been improved after transfusi on of 2 units. Sodium 136, potassium 4.3, bicarb 19, chloride 112, BUN 36, creatinine 5.4, calcium 8 .2, magnesium 1.8. TSAT of 22, ferritin 235. B12 393. Folate of 12. Urinalysis, negative. Hepati tis panel was still pending. Assessment And Plan: 1.Chronic kidney disease, stage 5/end-stage renal disease. Progression over volume with anemia and secondary hyperparathyroidism with acidosis. I had long discussion with the patient regarding the nd ed to initiate renal replacement therapy. The patient agreed if it is needed. I am going to go ahea d and change the Lasix to IV, and we will watch him the next 24 hours. If patient is still not respo nding very well to diuresis, I am going to go ahead and initiate dialysis. We will consult Dr. Mellissa wiseman for evaluation to place a PermCath and evaluate for AV fistula, and we will follow up. 2.Iron deficiency anemia. Chronic kidney disease, anemia. I am going to go ahead and start the pat ient on IV iron. The patient receive already transfusion we will follow up. 3.Secondary hyperparathyroidism. Continue to monitor. 4.Hypertension. We will utilize the blood pressure for more diuresis. We will change the Lasix to IV and we will follow up. 5.Acidosis secondary to renal failure. I am going to go ahead and increase his bicarb to t.i.d. If the patient is going to be started on dialysis, that is going to be discontinued. 6.Congestive heart failure. The patient has no known history of any chronic current artery disease. We will follow up. The echocardiogram. 7.Diabetes, as by primary. Case discussed with the patient and I agreed on the plan. Discussed with Dr. Zabala. SHAWN/MATEUSZ Voice ID: [id number] Report ID: [id number]
[2017-12-02] MEDS: INSULIN DETEMIR 100 UNIT/1 ML INSULIN SQ SCH (21:00)
[2017-12-03 06:43] LABS: Albumin 2.6 g/dL (3.2-5.5); Phosphorus 5.1 mg/dL (2.5-4.3); Potassium 4.7 mEq/L (3.6-5.0); Thyroid Stimulating Hormone 1.95 uIU/mL (0.34-5.60)
[2017-12-03] MEDS: INSULIN -REGULAR HUMAN 50 UNIT/0.5 ML ML SQ SCH ×4 (07:30→21:00)
[2017-12-03] MEDS: DOCOSAHEXANOIC AC/EPA 1000 MG PO SCH ×2 (09:00→21:05)
[2017-12-03] MEDS: HYDRALAZINE HCL 25 MG TABLET PO SCH ×4 (09:00→21:08)
[2017-12-03] MEDS: MINOXIDIL 2.5 MG TAB PO SCH ×2 (09:00→16:58)
[2017-12-03] MEDS: AMLODIPINE 10 MG TAB PO SCH (09:00)
[2017-12-03] MEDS: ATORVASTATIN 80 MG TAB PO SCH (09:00)
[2017-12-03] MEDS: CITALOPRAM 10 MG TABLET PO SCH ×2 (09:00→16:57)
[2017-12-03] MEDS: SODIUM BICARB 325 MG TAB PO SCH ×4 (09:00→22:22)
[2017-12-03] MEDS: PANTOPRAZOLE 40MG TABLET PO SCH ×2 (09:00→16:58)
[2017-12-03] MEDS: METOPROLOL TAR 50 MG TAB PO SCH ×2 (09:55→21:05)
[2017-12-03] MEDS: FUROSEMIDE 40 MG/4 ML VIAL IV SCH ×2 (09:56→16:58)
[2017-12-03] MEDS ORDERED: NA CHLORIDE 0.9% 500 ML ONE (11:07)
[2017-12-03] MEDS ORDERED: CEFAZOLIN/SWI 1gm 1 GM/10 ML SYR ONE (11:07)
[2017-12-03] MEDS ORDERED: HEPARIN 5000 UNIT/ML 1 ML VIAL ONE (11:15)
[2017-12-03] MEDS ORDERED: NS 0.9% VIAL 30 ML ONE (11:15)
[2017-12-03] MEDS ORDERED: D50W 25 GM/50 ML SYRINGE IV ONE (11:21)
[2017-12-03] MEDS ORDERED: MIDAZOLAM HCL 2 MG/2 ML INJ ONE (11:23)
[2017-12-03] MEDS ORDERED: PROPOFOL 200 MG/20 ML VIAL IV ONE (11:23)
[2017-12-03] MEDS ORDERED: LIDOCAINE 2% MPF 5 ML VIAL ONE (11:23)
[2017-12-03] MEDS ORDERED: FENTANYL CITR 100 MCG/2 ML ONE (11:24)
[2017-12-03] MEDS ORDERED: EPHEDRINE SULF 50 MG/5 ML SYR ONE (11:56)
[2017-12-03] MEDS: BUPIVACA 0.25%/EPI 0.0005% MDV 50 ML VIAL ONE (12:12)
[2017-12-03] MEDS ORDERED: NS 0.9% VIAL 20 ML ONE ×2 (12:20→12:23)
--- NOTE | 2017-12-03 12:50 | P.OP ---
Preoperative diagnosis: ESRD Postoperative diagnosis: ESRD Primary procedure: Placement of LEFT Subclavian Hemodialysis catheter Secondary procedure: ultrasound guidance and micro-introducer used Anesthesia: MAC + Local Estimated blood loss: <10cc Specimen: None Findings: Unable to place catheter in SVC, would not cross, but flushed well Complications: None Transferred to: Recovery Room Condition: Good
--- NOTE | 2017-12-03 12:58 | CON ---
Date of Consultation: 12/02/2017 Reason For Consultation: Placement of hemodialysis catheter and evaluation for AV fistula. Brief History Of Present Illness: The patient is a 67-year-old gentleman, who came to the hospital w ith difficulty breathing. His respiratory status is worse over the last few days prior to this admis paola. His breathing got worse and he has been tried his 's inhaler with very minimal improvement . He follows up with Dr. Cadet and has a history of poor renal function with a GFR of approximate ly 13. He will likely need hemodialysis here, but he had not had close followup with Dr. Cadet. He is found to have anemia and worsening renal function on his admission and his GFR was in the 10 ra nge. He was admitted for the above-stated problems. Past Medical History: Significant for diabetes, hypertension, neuropathy, ESRD, peripheral vascular disease, iron deficiency anemia, malnutrition, CKD stage 5. Past Surgical History: Right great toe amputation. Allergies: NO KNOWN DRUG ALLERGIES. Medications: At home include aspirin, amlodipine, atorvastatin, Celexa, fish oil, vitamin D2, ferrou s gluconate, ferrous sulfate, Lasix, Apresoline, Levemir, metoprolol, minoxidil, multivitamin, Proton ix, and sodium bicarbonate. Family History: Hypertension and cancer in his mother, which is throat cancer. Father had hypertens ion and CHF. Social History: He has a former smoking history. Denies alcohol or recreational drug use. Review of Systems: A 10 point review of systems in HPI, denies. Physical Examination: Vital Signs: At the time of my examination, his BMI is approximately 30. His vital signs were blood pressure 115/55, pulse is 75, respiratory rate 19, temperature 98.4. General: He is awake, alert, oriented. Psychiatric: He is appropriate, conversive. HEENT: Normocephalic. Sclerae icteric. Mucous membranes moist. Oropharynx clear. Neck: Supple. No JVD. Chest: Normal expansion and excursion. No scars evident. Pulmonary: Clear to auscultation bilaterally. Abdomen: Soft. Extremities: No clubbing, cyanosis, or edema. He has missing toe on the right foot and evidence of peripheral vascular disease in bilateral lower extremities as well. He has an IV in the right antecu bital fossa. He is a right-handed man by his description. Laboratory Data: Reveals a white blood cell count of 7.3, hemoglobin 9.1, hematocrit 25.9, platelet count is 232. His PT was 12.9, INR 1.09, PTT is 30.0. Sodium 137, potassium 3.9, chloride 112, carb on dioxide 18, BUN 35, creatinine 5.2, his GFR is 11. Glucose is 103. His calcium 8.4, phosphorus i s 4.5, magnesium 1.7. He had a chest x-ray performed on admission, which was officially read as righ t lower lobe pneumonia. He had a head CT performed, which was officially read as no acute intracrani al abnormality. He had an extremity venous study, which showed no DVT and left or right lower extrem ity DVTs. He had a renal ultrasound as well, which was officially read as unremarkable renal sonogra phy. Assessment And Plan: This is a 67-year-old male, who has worsening acute on chronic kidney disease s tage 5. I have explained the risks, benefits, and alternatives of placement of an internal jugular versus sub clavian tunneled hemodialysis catheter including, but not limited to bleeding, infection, damage to s urrounding tissue, pneumothorax, need for further operations and procedures. He agrees to proceed as indicated. I have also explained the need for workup for placement of an AV fistula; however, I wou ld like him to have no IVs from minimum of 2 weeks prior to doing a venous study to ensure accurate m apping for the optimal placement of an AV fistula. The patient agrees to proceed with this as an outpatient as well. JOSEP/MATEUSZ Voice ID: [id number] Report ID: [id number]
--- NOTE | 2017-12-03 13:15 | RAD REPORT ---
EXAM DESCRIPTION: RAD - Fluoroscopy <1 Hour - 12/03/2017 12:38 pm FINDINGS: Chest fluoroscopy performed. Multiple portable C-arm views were obtained during fluoroscopic assisted placement of a tunneled left -sided dialysis catheter. Initial imaging shows a guidewire following the expected course of the left jugular and brachiocephal ic vein. Final images show the catheter extending to the left side of the mediastinum and upper chest . This would indicate the catheter is not in the brachiocephalic vein. This could be within a vena ca va anomaly. Extravascular positioning of the catheter cannot be excluded. However, I available report the cathete r flushed easily with good return. Images have been reviewed and findings discussed with the referring physician.
--- NOTE | 2017-12-03 13:20 | RAD REPORT ---
EXAM DESCRIPTION: RAD - Chest Single View - 12/03/2017 12:52 pm CLINICAL HISTORY: Hemodialysis catheter placement COMPARISON: Portable imaging obtained following placement of 8 left jugular tunneled catheter. Final image shows the catheter extending to the left of midline. Catheter does not follow the expected cou rse of the brachiocephalic vein. This could be within a vena cava anatomic variant or possibly branch ing vein off of the brachiocephalic. By report the catheter flushes easy with good blood return. extr aluminal positioning of the catheter cannot be excluded but may be on likely given the functionality of the catheter. TECHNIQUE: AP portable chest image was obtained 1240 hours . FINDINGS: Portable imaging obtained following placement of 8 left jugular tunneled catheter. Final i mage shows the catheter extending to the left of midline. Catheter does not follow the expected cours e of the brachiocephalic vein. This could be within a vena cava anatomic variant or possibly branchin g vein off of the brachiocephalic. By report the catheter flushes easy with good blood return. extral uminal positioning of the catheter cannot be excluded but may be on likely given the functionality of the catheter. Cardiac silhouette is enlarged. Pleural effusion present on the right and probably on the left. Centr al vasculature and lung markings are prominent. Trachea is midline. Cardiomegaly is present. No pneum othorax seen. IMPRESSION: Hemodialysis catheter extends to the left side of midline which could be within a branch ing vein off of the brachiocephalic vein, vena cava anomaly or even extravascular. Imaging and findings have been discussed with the referring physician. Additional imaging is pending for position assessment. No pneumothorax. CHF/ volume overload pattern.
--- NOTE | 2017-12-03 14:35 | RAD REPORT ---
EXAM DESCRIPTION: CT - [place] Wo Con - 12/03/2017 1:34 pm CLINICAL HISTORY: Aberrant positioning of hemodialysis catheter COMPARISON: Chest film an intraoperative fluoroscopy same date TECHNIQUE: Axial 5 mm thick images of the chest were obtained without IV contrast. Acquisition was t hen repeated after 10 mm of contrast injected through the dialysis catheter. A 10 mL saline flush vol ume was utilized as well. All CT scans are performed using dose optimization technique as appropriate and may include automated exposure control or mA/KV adjustment according to patient size. FINDINGS: Imaging shows the recently placed left-side dialysis catheter to extend along the left josé luis e of the mediastinum. There are several small lymph nodes scattered in the mediastinum. Largest lymph node near the AP window is 2.1 cm in size. There is no hematoma or other fluid within the mediastinu m. The post contrast imaging shows no extraluminal pooling of contrast in the mediastinum. This would indicate that the dialysis catheter has extended into a small branch off of the brachiocephalic vein . The catheter fills the diameter of the vein. No pleural thickening or pleural effusion. Large bilateral pleural effusions are present. There is co mplete bilateral lower lobe atelectasis and partial right upper lobe atelectasis. No pericardial effu paola. Cardiomegaly is present. No gross aortic or pulmonary artery finding suspected. No chest wall mass or abnormal axillary lymphadenopathy. Findings have been discussed with the referring physician. IMPRESSION: The recently placed left jugular hemodialysis catheter extends into a small branching ve in off the brachiocephalic vein. Catheter courses along the left side of the mediastinum. There is no mediastinal fluid or hematoma collection. There is no pooling of contrast within the medi astinum. Large bilateral pleural effusions with lower lobe atelectasis. This is most likely volume overload. F ailure would be possible as well. No pneumothorax.
--- NOTE | 2017-12-03 16:12 | P.PN ---
Subjective Date of Service: 12/03/17 Chief Complaint: Shortness of breath Patient seen and examined at bedside with RN. Chart reviewed. Case discussed with nephrology. Currently patient states that he feels alot better than before. S/P HD cath placement today. Review of Systems 10-point ROS is otherwise unremarkable Physical Examination - Vital Signs Temperature: 98.4 F Blood Pressure: 159/69 Pulse: 76 Respirations: 18 Pulse Ox (%): 93 - Physical Exam General: Alert, In no apparent distress, Oriented x3 HEENT: Atraumatic, PERRLA, EOMI Neck: Supple, JVD not distended Respiratory: Clear to auscultation bilaterally, Normal air movement Cardiovascular: Regular rate/rhythm, Normal S1 S2 Gastrointestinal: Normal bowel sounds, No tenderness Musculoskeletal: No tenderness, Other (Cather site on the right C/D/I) Integumentary: No rashes Neurological: Normal speech, Normal tone, Normal affect Lymphatics: No axilla or inguinal lymphadenopathy - Studies Microbiology Data (last 24 hrs): 12/01/17 20:00 Clean Catch Urine [place] Count - Final <10,000 CFU/ML. 12/01/17 20:00 Clean Catch Urine - Final Medications List Reviewed: Yes Assessment & Plan - Problems (Diagnosis) (1) Acute kidney injury superimposed on CKD Onset Date: 12/02/17 Current Visit: No Status: Acute Plan: Acute on CKD stage 5 now on HD -Nephrology Consulted. Appreciated Reccs -Cr is elevated with acute anemia. -General Surgery Consulted for catheter Placement -IV lasix BID for now -HD with Cath is usable. (2) Anemia Onset Date: 12/02/17 Current Visit: No Status: Chronic Plan: Anemia of chronic disease most likely 2.2 to CKD -S/P 2 PRBC blood transfusion -Will F/U with Repeat H/H Qualifiers: Anemia type: due to chronic kidney disease Chronic kidney disease stage: stage 5, not on chronic dialysis Qualified Code(s): N18.5 - Chronic kidney disease, stage 5; D63.1 - Anemia in chronic kidney disease; D63.1 - Anemia in chronic kidney disease (3) Diabetes mellitus Onset Date: 12/02/17 Current Visit: No Status: Chronic Qualifiers: Diabetes mellitus type: type 2 Diabetes mellitus toe puller insulin use: with toe puller use Diabetes mellitus complication status: with skin complications Diabetes mellitus complication detail: with foot ulcer Qualified Code(s): E11.621 - Type 2 diabetes mellitus with foot ulcer; L97.509 - Non-pressure chronic ulcer of other part of unspecified foot with unspecified severity; Z79.4 - snf (current) use of insulin (4) HTN (hypertension) Onset Date: 12/02/17 Current Visit: No Status: Chronic Qualifiers: Hypertension type: essential hypertension Qualified Code(s): I10 - Essential (primary) hypertension (5) Hyperlipidemia Onset Date: 12/02/17 Current Visit: No Status: Chronic Qualifiers: Hyperlipidemia type: mixed hyperlipidemia Qualified Code(s): E78.2 - Mixed hyperlipidemia (6) Coronary artery disease Onset Date: 12/02/17 Current Visit: No Status: Chronic Qualifiers: Coronary Disease-Associated Artery/Lesion type: unspecified vessel or lesion type [place] vs. transplanted heart: unspecified whether [place] or transplanted heart Associated angina: angina presence unspecified Qualified Code(s): I25.10 - Atherosclerotic heart disease of [place] coronary artery without angina pectoris (7) PVD (peripheral vascular disease) Onset Date: 12/02/17 Current Visit: No Status: Chronic Discharge Plan: Home Plan to discharge in: 48 Hours - Code Status/Comfort Care Code Status Assessed: Yes Critical Care: No
[2017-12-03] MEDS: ACETAMINOPHEN 500 MG TAB PO PRN (17:12)
[2017-12-03] MEDS: INSULIN DETEMIR 100 UNIT/1 ML INSULIN SQ SCH (21:00)
[2017-12-03] MEDS: JUVEN PACKET PO SCH (21:07)
--- NOTE | 2017-12-03 23:25 | OP ---
Date of Procedure: 12/03/2017 Surgeon: Sina Gregory MD, Preoperative Diagnosis: End-stage renal disease. Postoperative Diagnosis: End-stage renal disease. Procedure Performed: Placement of left subclavian hemodialysis tunneled catheter. Secondary Procedure: Ultrasound guidance used and microintroducer set used. Anesthesia: MAC plus local with 0.25% Marcaine. Estimated Blood Loss: Less than 10 cc. Specimen: None. Findings: I was unable to place the catheter in the SVC. The wire was crossed to the to the SVC. H owever, the catheter could not be advanced to this portion; however, it was advanced and it flushed q uite easily, but appeared to stay to the left of the spine in a possible anomalous vein system. Flus erin was quite easily. There was no suspicion of venous injury or arterial injury. Complications: As above. Disposition: Transferred to recovery room in good condition. Procedure In Detail: After informed consent obtained, the patient was brought to the operating room, prepped and draped in the usual sterile fashion. After adequate anesthesia was achieved, I used the ultrasound probe to position the probe over the left subclavian vein and I visualized this under the collarbone. I then moved up to the left internal jugular vein and visualized this. I then had the patient prepped and draped in the usual sterile fashion and after adequate anesthesia was achieved, t he patient was placed in steep Trendelenburg position using a microintroducer set and the ultrasound guidance, I cannulated the left internal jugular vein on the first attempt. The micro wire was advan mallory in here. Ultrasound verified the position as well as fluoroscopy confirmed the position of the w tramaine, across the midline to the SVC. At this time, a small radha was made in the neck and the introduc er sheath was placed. The wire out was called at this time. The standard wire was then advanced, al so across the midline to the SVC. I then removed the introducer sheath and left this in place. A tu nnel location was made on the left chest. After appropriately anesthetizing the entire tract, I plac ed the tunneling device and passed the catheter up through the neck incision, insertion point into th e subclavian vein and brought the catheter out with the cuff easily into the appropriate anatomic pos ition. At this time, I sequentially dilated up the tract and removed the wire at this time after ramila cing the introducer sheath in place. The introducer sheath had the catheter placed within this, afte r sizing appropriately and placed it into the introducer sheath without evidence of complication. I correct the introducer sheath and removed the introducer sheath completely and the catheter was left in place. I then brought the x-ray machine in once again and at this particular instance, the wire-o ut was called, it appeared that the catheter remained on the left side. Attempts to reposition were unsuccessful and the catheter remained on the left side. I then pulled back on the catheter and got blood non-dark, red, nonpulsatile blood. I then flushed the area and it pulled quite easily and flus hed quite easily. The sequential dilatation in all portions of the procedure required no significant manipulation and as such I feel that this is within the vessel, possibly with an anomalous vessel or azygos system perhaps, but it is difficult to tell based on x-ray imaging. I therefore decided to l eave the catheter in place and get more imaging with CT after the procedure to verify the position. Once again, this catheter flushed quite easily and withdrew quite easily. A chest x-ray will be perf ormed in the PACU and a stat chest CT will be used to confirm the position of this catheter to ensure no vascular injury has occurred and that the catheter has not caused any other untoward injuries. C atheter be left in place until this was completed. I will likely remove the catheter tomorrow and re place the catheter on the right side at that time. All counts were correct at the case. I secured t he catheter to the skin using the 3-0 nylon. The insertion site was then closed after copiously irri gating, cleansing it, sterile dressing was placed over the top. The patient tolerated the procedure well without evidence of complication obviously at this time and the patient was transferred to PACU in good condition. A chest x-ray and stat CT will be performed as described, and we will plan for replacement of the catheter tomorrow. JOSEP/MATEUSZ Voice ID: [id number] Report ID: [id number]
[2017-12-04 03:18] LABS: HBsAG Nonreactive (Nonreactive)
[2017-12-04 06:01] LABS: Albumin 2.8 g/dL (3.2-5.5); Phosphorus 5.8 mg/dL (2.5-4.3); Potassium 4.3 mEq/L (3.6-5.0)
[2017-12-04] MEDS: ONDANSETRON 4 MG/2 ML VIAL IV PRN (06:01)
[2017-12-04] MEDS: INSULIN -REGULAR HUMAN 50 UNIT/0.5 ML ML SQ SCH ×4 (07:30→20:52)
[2017-12-04] MEDS: JUVEN PACKET PO SCH ×2 (09:00→20:49)
[2017-12-04] MEDS: FUROSEMIDE 40 MG/4 ML VIAL IV SCH ×2 (09:00→19:33)
[2017-12-04] MEDS: PANTOPRAZOLE 40MG TABLET PO SCH (09:00)
[2017-12-04] MEDS: AMLODIPINE 10 MG TAB PO SCH (09:00)
[2017-12-04] MEDS: HYDRALAZINE HCL 25 MG TABLET PO SCH ×4 (09:00→20:51)
[2017-12-04] MEDS: DOCOSAHEXANOIC AC/EPA 1000 MG PO SCH ×2 (09:00→20:48)
[2017-12-04] MEDS: ATORVASTATIN 80 MG TAB PO SCH (09:00)
[2017-12-04] MEDS: SODIUM BICARB 325 MG TAB PO SCH ×3 (09:00→20:47)
[2017-12-04] MEDS: CITALOPRAM 10 MG TABLET PO SCH (09:00)
[2017-12-04] MEDS: MINOXIDIL 2.5 MG TAB PO SCH (09:00)
[2017-12-04] MEDS: METOPROLOL TAR 50 MG TAB PO SCH ×2 (10:10→20:48)
[2017-12-04] MEDS ORDERED: BUPIVACA 0.25%/EPI 0.0005% MDV 50 ML VIAL ONE (10:59)
[2017-12-04] MEDS ORDERED: HEPARIN 5000 UNIT/ML 1 ML VIAL ONE (10:59)
[2017-12-04] MEDS ORDERED: FENTANYL CITR 100 MCG/2 ML ONE (11:54)
[2017-12-04] MEDS ORDERED: PROPOFOL 200 MG/20 ML VIAL IV ONE (11:54)
[2017-12-04] MEDS ORDERED: LIDOCAINE 2% MPF 5 ML VIAL ONE (11:54)
[2017-12-04] MEDS ORDERED: MIDAZOLAM HCL 2 MG/2 ML INJ ONE (11:55)
[2017-12-04] MEDS ORDERED: ONDANSETRON 4 MG/2 ML VIAL ONE (11:55)
[2017-12-04] MEDS ORDERED: NA CHLORIDE 0.9% 500 ML ONE (11:56)
[2017-12-04] MEDS ORDERED: EPHEDRINE SULF 50 MG/5 ML SYR ONE (12:27)
[2017-12-04] MEDS: BUPIVACA 0.25%/EPI 0.0005% MDV 50 ML VIAL ONE (12:37)
--- NOTE | 2017-12-04 12:54 | P.OP ---
Preoperative diagnosis: ESRD Postoperative diagnosis: ESRD Primary procedure: Placement of RIGHT Internal Jugular Hemodialysis catheter Secondary procedure: ultrasound guidance and micro-introducer used Findings: Perfect Positioning, non-pulsatile blood returned Complications: None Transferred to: Recovery Room Condition: Good
[2017-12-04] MEDS ORDERED: PNEUMOCOCCAL VACCINE 0.5 ML IMVAC ONE (13:00)
--- NOTE | 2017-12-04 13:30 | RAD REPORT ---
EXAM DESCRIPTION: RAD - Chest Single View - 12/04/2017 1:22 pm CLINICAL HISTORY: Venous catheter placement. COMPARISON: 12/03/2017 FINDINGS: Portable technique limits examination quality. Right-sided venous catheter has been placed with its tip in the SVC. No pneumothorax. The heart is mi ldly enlarged in size. Hazy right lung base opacification is unchanged. IMPRESSION: No postprocedure pneumothorax is seen.
--- NOTE | 2017-12-04 13:34 | RAD REPORT ---
EXAM DESCRIPTION: RAD - Fluoroscopy <1 Hour - 12/04/2017 1:27 pm CLINICAL HISTORY: Venous catheter insertion. COMPARISON: None. FINDINGS: Fluoroscopic imaging is submitted from placement of a venous catheter. Details of the pro cedure not available.
[2017-12-04] MEDS: SOD FERRIC GLUC COMPLX/SUCROSE 125 MG in NA CHLORIDE 0.9% 100 ML IV SCH (15:20)
[2017-12-04] MEDS: EPOETIN ALFA 10,000 UNIT/ML VIAL IV SCH (15:22)
--- NOTE | 2017-12-04 16:56 | P.PN ---
Subjective Date of Service: 12/04/17 Primary Care Provider: None Chief Complaint: Shortness of breath Patient seen and examined at bedside with RN. Chart reviewed. Case discussed with nephrology. Pt is awaiting HD cath placement today with Dr Gregory and will get Dialysis after that. Review of Systems 10-point ROS is otherwise unremarkable Physical Examination - Vital Signs Temperature: 98.5 F Blood Pressure: 164/64 Pulse: 75 Respirations: 18 Pulse Ox (%): 93 - Physical Exam General: Alert, In no apparent distress, Oriented x3 HEENT: Atraumatic, PERRLA, EOMI Neck: Supple, JVD not distended Respiratory: Clear to auscultation bilaterally, Normal air movement Cardiovascular: Regular rate/rhythm, Normal S1 S2 Gastrointestinal: Normal bowel sounds, No tenderness Musculoskeletal: No tenderness Integumentary: No rashes Neurological: Normal speech, Normal tone, Normal affect Lymphatics: No axilla or inguinal lymphadenopathy - Studies Medications List Reviewed: Yes Assessment & Plan - Problems (Diagnosis) (1) Acute kidney injury superimposed on CKD Onset Date: 12/02/17 Current Visit: No Status: Acute Plan: Acute on CKD stage 5 now on HD -Nephrology Consulted. Appreciated Reccs -Cr is elevated with acute anemia. -General Surgery Consulted for catheter Placement again today -IV lasix BID for now -HD after Cath placement. (2) Anemia Onset Date: 12/02/17 Current Visit: No Status: Chronic Plan: Anemia of chronic disease most likely 2.2 to CKD -S/P 2 PRBC blood transfusion -Will F/U with Repeat H/H Qualifiers: Anemia type: due to chronic kidney disease Chronic kidney disease stage: stage 5, not on chronic dialysis Qualified Code(s): N18.5 - Chronic kidney disease, stage 5; D63.1 - Anemia in chronic kidney disease; D63.1 - Anemia in chronic kidney disease (3) Diabetes mellitus Onset Date: 12/02/17 Current Visit: No Status: Chronic Qualifiers: Diabetes mellitus type: type 2 Diabetes mellitus mcc insulin use: with termite helper use Diabetes mellitus complication status: with skin complications Diabetes mellitus complication detail: with foot ulcer Qualified Code(s): E11.621 - Type 2 diabetes mellitus with foot ulcer; L97.509 - Non-pressure chronic ulcer of other part of unspecified foot with unspecified severity; Z79.4 - rodent exterminator (current) use of insulin (4) HTN (hypertension) Onset Date: 12/02/17 Current Visit: No Status: Chronic Qualifiers: Hypertension type: essential hypertension Qualified Code(s): I10 - Essential (primary) hypertension (5) Hyperlipidemia Onset Date: 12/02/17 Current Visit: No Status: Chronic Qualifiers: Hyperlipidemia type: mixed hyperlipidemia Qualified Code(s): E78.2 - Mixed hyperlipidemia (6) Coronary artery disease Onset Date: 12/02/17 Current Visit: No Status: Chronic Qualifiers: Coronary Disease-Associated Artery/Lesion type: unspecified vessel or lesion type [place] vs. transplanted heart: unspecified whether [place] or transplanted heart Associated angina: angina presence unspecified Qualified Code(s): I25.10 - Atherosclerotic heart disease of [place] coronary artery without angina pectoris (7) PVD (peripheral vascular disease) Onset Date: 12/02/17 Current Visit: No Status: Chronic Discharge Plan: Home Plan to discharge in: 48 Hours - Code Status/Comfort Care Code Status Assessed: Yes Critical Care: No
[2017-12-04] MEDS: INSULIN DETEMIR 100 UNIT/1 ML INSULIN SQ SCH (21:00)
--- NOTE | 2017-12-04 23:41 | OP ---
Date of Procedure: 12/04/2017 Surgeon: Sina Gregory MD, Preoperative Diagnosis: End-stage renal disease. Postoperative Diagnosis: End-stage renal disease. Procedures Performed: Placement of a right internal jugular hemodialysis catheter using ultrasound g uidance and microintroducer set. Findings: Perfect positioning, nonpulsatile blood return confirmed with fluoroscopy during the case. Complications: None. Disposition: Transferred to recovery room in good condition. Procedure In Detail: After informed consent was obtained, the patient was brought to the operating r oom, prepped and draped in the usual sterile fashion. After adequate anesthesia was achieved, an are a of the right internal jugular vein was anesthetized after visualizing it using ultrasound probe, fo und to be a good position. After appropriate anesthetizing, the patient was positioned in steep [place]. A micropuncture needle was introduced into the jugular vein under direct visualization wi thout evidence or complication. The micro wire was advanced. Fluoroscopy confirmed the position in the SVC. A small radha was made in the insertion site and an introducer sheath was placed at this ruby e. Confirmation with fluoroscopy was once again performed and the wire out was called at this time. After the wire was removed, a standard wire was then advanced. Confirmation was once again performe d using fluoroscopy and found to be in good position in the SVC. After this was performed, a small c ounter incision was made approximately 4-5 cm away after appropriately anesthetizing the chest wall a nd the entire tract leading to the insertion site. A small incision was made in this area and the tu nneling device was used to pass the catheter through. Sequential dilatation was then performed over the wire using Seldinger technique at the insertion site and the introducer sheath was placed at this time. Confirmation using fluoroscopy was once again confirmed to be in the SVC. I then removed the wire. The wire out was called once again and the catheter was placed into the introducer sheath. A t this time, the sheath was then removed and confirmation was performed once again that the catheter was in good position using fluoroscopy. This was confirmed at this time and it was found to be at th e confluence of the SVC. After this was positioned appropriately, the area was copiously irrigated a nd the 2 incisions were closed with a 3-0 nylon in an interrupted fashion and the catheter was secure d to the chest wall using the same set 3-0 nylon. Sterile dressing was placed over top. The patient tolerated the procedure well without evidence of complication up to this point. I then removed the left chest catheter, which was inserted through the jugular vein as well, not the subclavian vein as indicated. It was placed in the jugular vein and was removed at this time without evidence of compli cation. Pressure was held for 5 minutes by the clock. The patient was then positioned in the head u p position and pressure was continued to be held for another 2 minutes. At this time, I released the pressure, irrigated the area, and cleansed it in a sterile fashion and closed this incision with a 3 -0 nylon in an interrupted fashion. Sterile dressing was placed over the top. The patient tolerated both procedures without evidence of complication and transferred to PACU in good condition. All cou nts were correct at the end of the case. ROBBIE Voice ID: [id number] Report ID: [id number]
--- NOTE | 2017-12-05 02:02 | PN ---
Date of Progress Note: 12/04/2017 Subjective: The patient is feeling better. The patient is status post PermCath placement yesterday. Repositioning to right IJ today. The patient seen on service session of dialysis. Physical Examination: Vital Signs: When I saw the patient, blood pressure 150/59, pulse of 83. Patient had urine output o f 1400. Chest: Crackles bilateral. Heart: S1, S2. Regular. Abdomen: Soft, nontender. Extremities: +2 edema. Laboratory Data: WBC 7.3, H and H 9.1/25.9, platelet 232. Sodium 136, potassium 4.3, bicarb 21. BU N 43, creatinine 6.1, calcium 8.5, phosphorus 5.1, albumin 2.8. Corrected calcium is 9. Current Medications: The patient on include; 1.Epogen. 2.Albuterol. 3.IV iron. 4.Norvasc. 5.Hydralazine. 6.Metoprolol 50 b.i.d. 7.Citalopram. 8.Lasix 80 b.i.d. 9.Sodium bicarb. Assessment And Plan: 1.End-stage renal disease. We will continue the patient on dialysis. I am going to go ahead and ar range for dialysis tomorrow. We will follow up the patient. 2.Hypertension, controlled, not optimal. I utilized the blood pressure for more diuresis and ultraf iltration. 3.Over volume. We will continue diuresis. We will continue ultrafiltrate on the dialysis. 4.Anemia. Continue Epogen. 5.Secondary hyperparathyroidism. I am going to start the patient on Tums. The patient is waiting f or hemodialysis placement. SHAWN/MATEUSZ Voice ID: [id number] Report ID: [id number]
[2017-12-05 05:26] LABS: Albumin 2.7 g/dL (3.2-5.5); Phosphorus 4.5 mg/dL (2.5-4.3); Potassium 3.7 mEq/L (3.6-5.0)
[2017-12-05] MEDS: INSULIN -REGULAR HUMAN 50 UNIT/0.5 ML ML SQ SCH ×4 (07:30→21:00)
[2017-12-05] MEDS: JUVEN PACKET PO SCH ×2 (09:00→21:00)
[2017-12-05] MEDS: MINOXIDIL 2.5 MG TAB PO SCH (09:15)
[2017-12-05] MEDS: CITALOPRAM 10 MG TABLET PO SCH (09:16)
[2017-12-05] MEDS: CALCIUM CARBONATE CHEW 500MG TAB PO SCH ×3 (09:16→17:04)
[2017-12-05] MEDS: HYDRALAZINE HCL 25 MG TABLET PO SCH ×3 (09:16→22:59)
[2017-12-05] MEDS: AMLODIPINE 10 MG TAB PO SCH (09:17)
[2017-12-05] MEDS: ATORVASTATIN 80 MG TAB PO SCH (09:17)
[2017-12-05] MEDS: PANTOPRAZOLE 40MG TABLET PO SCH (09:17)
[2017-12-05] MEDS: DOCOSAHEXANOIC AC/EPA 1000 MG PO SCH ×2 (09:17→22:59)
[2017-12-05] MEDS: METOPROLOL TAR 50 MG TAB PO SCH ×2 (09:19→23:00)
[2017-12-05] MEDS: FUROSEMIDE 40 MG/4 ML VIAL IV SCH ×2 (09:19→17:06)
--- NOTE | 2017-12-05 10:50 | P.PN ---
Subjective Date of Service: 12/05/17 Primary Care Provider: None Chief Complaint: Shortness of breath Patient seen and examined at bedside with RN. Chart reviewed. Case discussed with nephrology. Pt had his HD cath Placment and had a successful dialysis after that. Currently awaiting for clinical Improvement. States he has no c/o at this time. Review of Systems 10-point ROS is otherwise unremarkable Physical Examination - Vital Signs Temperature: 97.3 F Blood Pressure: 153/70 Pulse: 82 Respirations: 18 Pulse Ox (%): 90 - Physical Exam General: Alert, In no apparent distress HEENT: Atraumatic, PERRLA, EOMI Neck: Supple, JVD not distended Respiratory: Clear to auscultation bilaterally, Normal air movement Cardiovascular: Regular rate/rhythm, Normal S1 S2 Gastrointestinal: Normal bowel sounds, No tenderness Musculoskeletal: No tenderness Integumentary: No rashes Neurological: Normal speech, Normal tone, Normal affect Lymphatics: No axilla or inguinal lymphadenopathy - Studies Medications List Reviewed: Yes Assessment & Plan - Problems (Diagnosis) (1) Acute kidney injury superimposed on CKD Onset Date: 12/02/17 Current Visit: No Status: Acute Plan: Acute on CKD stage 5 now on HD -Nephrology Consulted. Appreciated Reccs -Cr is elevated with acute anemia. -General Surgery Consulted -S/P catheter Placement and HD -IV lasix BID for now (2) Anemia Onset Date: 12/02/17 Current Visit: No Status: Chronic Plan: Anemia of chronic disease most likely 2.2 to CKD -S/P 2 PRBC blood transfusion -Will F/U with Repeat H/H Qualifiers: Anemia type: due to chronic kidney disease Chronic kidney disease stage: stage 5, not on chronic dialysis Qualified Code(s): N18.5 - Chronic kidney disease, stage 5; D63.1 - Anemia in chronic kidney disease; D63.1 - Anemia in chronic kidney disease (3) Diabetes mellitus Onset Date: 12/02/17 Current Visit: No Status: Chronic Qualifiers: Diabetes mellitus type: type 2 Diabetes mellitus tank terminal gauger insulin use: with tank terminal gauger use Diabetes mellitus complication status: with skin complications Diabetes mellitus complication detail: with foot ulcer Qualified Code(s): E11.621 - Type 2 diabetes mellitus with foot ulcer; L97.509 - Non-pressure chronic ulcer of other part of unspecified foot with unspecified severity; Z79.4 - correction (current) use of insulin (4) HTN (hypertension) Onset Date: 12/02/17 Current Visit: No Status: Chronic Qualifiers: Hypertension type: essential hypertension Qualified Code(s): I10 - Essential (primary) hypertension (5) Hyperlipidemia Onset Date: 12/02/17 Current Visit: No Status: Chronic Qualifiers: Hyperlipidemia type: mixed hyperlipidemia Qualified Code(s): E78.2 - Mixed hyperlipidemia (6) Coronary artery disease Onset Date: 12/02/17 Current Visit: No Status: Chronic Qualifiers: Coronary Disease-Associated Artery/Lesion type: unspecified vessel or lesion type [place] vs. transplanted heart: unspecified whether [place] or transplanted heart Associated angina: angina presence unspecified Qualified Code(s): I25.10 - Atherosclerotic heart disease of [place] coronary artery without angina pectoris (7) PVD (peripheral vascular disease) Onset Date: 12/02/17 Current Visit: No Status: Chronic Discharge Plan: Home (Will Need HD setup before Discharge.) Plan to discharge in: 72 Hours - Code Status/Comfort Care Code Status Assessed: Yes Critical Care: No
--- NOTE | 2017-12-05 19:48 | PN ---
Date of Progress Note: 12/05/2017 Subjective: The patient feeling better. Status post dialysis yesterday. Managed to remove 3 L. Physical Examination: Vital Signs: Blood pressure of 143/64, pulse of 74, afebrile. Chest: Crackles bilateral base. Heart: S1, S2 regular. Abdomen: Soft, nontender. Extremities: +1 edema. Laboratory Data: WBC 7.3, H and H 9.1/25.9, and platelets 232. Sodium 138, potassium of 3.7, bicarb 27, BUN 29, creatinine 4.9, calcium 8.2 and phos 4.5. Current Medications: The patient is on include; 1.Epogen. 2.IV iron. 3.Atorvastatin. 4.Docusate. 5.Lisinopril. 6.Hydralazine 100 q.i.d. 7.Norvasc 10. 8.Metoprolol 50 b.i.d. 9.Citalopram. 10.Breathing treatment. Assessment And Plan: 1.End-stage renal disease. We will continue the patient on dialysis. I am going to go ahead and ar range for dialysis today. 2.Secondary hyperparathyroidism, stable. 3.Anemia of chronic kidney disease, iron deficiency anemia. Continue IV iron. The patient cleared from the renal standpoint. 4.Congestive heart failure. We will continue to challenge. 5.Hypertension, controlled, optimal. I am going to go ahead and discontinue Norvasc. Start the patient on lisinopril adjust hydralazine to t.i.d. and we will follow up. KULDIP Voice ID: [id number] Report ID: [id number]
[2017-12-05] MEDS: INSULIN DETEMIR 100 UNIT/1 ML INSULIN SQ SCH (21:00)
[2017-12-06 05:40] LABS: Albumin 2.6 g/dL (3.2-5.5); Phosphorus 3.2 mg/dL (2.5-4.3); Potassium 3.3 mEq/L (3.6-5.0)
[2017-12-06 07:14] VITALS: BMI 29.8
[2017-12-06] MEDS: INSULIN -REGULAR HUMAN 50 UNIT/0.5 ML ML SQ SCH ×4 (07:30→21:00)
[2017-12-06] MEDS: FUROSEMIDE 40 MG/4 ML VIAL IV SCH ×2 (08:45→18:19)
[2017-12-06] MEDS: MINOXIDIL 2.5 MG TAB PO SCH (08:46)
[2017-12-06] MEDS: CITALOPRAM 10 MG TABLET PO SCH (08:46)
[2017-12-06] MEDS: HYDRALAZINE HCL 25 MG TABLET PO SCH ×5 (08:46→20:58)
[2017-12-06] MEDS: DOCOSAHEXANOIC AC/EPA 1000 MG PO SCH ×2 (08:47→20:57)
[2017-12-06] MEDS: CALCIUM CARBONATE CHEW 500MG TAB PO SCH ×3 (08:48→18:18)
[2017-12-06] MEDS: LISINOPRIL 20 MG TAB PO SCH (08:48)
[2017-12-06] MEDS: METOPROLOL TAR 50 MG TAB PO SCH ×2 (08:49→20:58)
[2017-12-06] MEDS: PANTOPRAZOLE 40MG TABLET PO SCH (08:49)
[2017-12-06] MEDS: ATORVASTATIN 80 MG TAB PO SCH (08:49)
[2017-12-06] MEDS: JUVEN PACKET PO SCH ×2 (08:49→20:59)
[2017-12-06] MEDS: NS 0.9% VIAL 10 ML ONE ×2 (08:50→08:51)
--- NOTE | 2017-12-06 13:17 | P.PN ---
Subjective Date of Service: 12/06/17 Primary Care Provider: None Chief Complaint: Shortness of breath Patient seen and examined at bedside with RN. Chart reviewed. Case discussed with nephrology. Pt had his HD cath Placment and had a successful dialysis after that. States he has no c/o at this time. Awaiting Dialysis Placement. Review of Systems General: As per HPI Physical Examination - Vital Signs Temperature: 98.8 F Blood Pressure: 123/58 Pulse: 72 Respirations: 20 Pulse Ox (%): 90 - Physical Exam General: Alert, In no apparent distress HEENT: Atraumatic, PERRLA, EOMI Neck: Supple, JVD not distended Respiratory: Clear to auscultation bilaterally, Normal air movement Cardiovascular: Regular rate/rhythm, Normal S1 S2 Gastrointestinal: Normal bowel sounds, No tenderness Musculoskeletal: No tenderness Integumentary: No rashes Neurological: Normal speech, Normal tone, Normal affect Lymphatics: No axilla or inguinal lymphadenopathy - Studies Medications List Reviewed: Yes Assessment & Plan - Problems (Diagnosis) (1) Acute kidney injury superimposed on CKD Onset Date: 12/02/17 Current Visit: No Status: Acute Plan: Acute on CKD stage 5 now on HD -Nephrology Consulted. Appreciated Reccs -S/P catheter Placement and HD -IV lasix BID for now (2) Anemia Onset Date: 12/02/17 Current Visit: No Status: Chronic Plan: Anemia of chronic disease most likely 2.2 to CKD -S/P 2 PRBC blood transfusion -Will F/U with Repeat H/H Qualifiers: Anemia type: due to chronic kidney disease Chronic kidney disease stage: stage 5, not on chronic dialysis Qualified Code(s): N18.5 - Chronic kidney disease, stage 5; D63.1 - Anemia in chronic kidney disease; D63.1 - Anemia in chronic kidney disease (3) Diabetes mellitus Onset Date: 12/02/17 Current Visit: No Status: Chronic Qualifiers: Diabetes mellitus type: type 2 Diabetes mellitus fci insulin use: with fci use Diabetes mellitus complication status: with skin complications Diabetes mellitus complication detail: with foot ulcer Qualified Code(s): E11.621 - Type 2 diabetes mellitus with foot ulcer; L97.509 - Non-pressure chronic ulcer of other part of unspecified foot with unspecified severity; Z79.4 - MCC (current) use of insulin (4) HTN (hypertension) Onset Date: 12/02/17 Current Visit: No Status: Chronic Qualifiers: Hypertension type: essential hypertension Qualified Code(s): I10 - Essential (primary) hypertension (5) Hyperlipidemia Onset Date: 12/02/17 Current Visit: No Status: Chronic Qualifiers: Hyperlipidemia type: mixed hyperlipidemia Qualified Code(s): E78.2 - Mixed hyperlipidemia (6) Coronary artery disease Onset Date: 12/02/17 Current Visit: No Status: Chronic Qualifiers: Coronary Disease-Associated Artery/Lesion type: unspecified vessel or lesion type [place] vs. transplanted heart: unspecified whether [place] or transplanted heart Associated angina: angina presence unspecified Qualified Code(s): I25.10 - Atherosclerotic heart disease of [place] coronary artery without angina pectoris (7) PVD (peripheral vascular disease) Onset Date: 12/02/17 Current Visit: No Status: Chronic
[2017-12-06] MEDS: INSULIN DETEMIR 100 UNIT/1 ML INSULIN SQ SCH (20:59)
--- NOTE | 2017-12-07 03:13 | PN ---
Date of Progress Note: 12/06/2017 Subjective: The patient is doing better. Still poor intake, but otherwise breathing status has impr candido. Physical Examination: Vital Signs: When I saw the patient, blood pressure 153/67, pulse of 83. Chest: Crackles bilateral base. Heart: S1, S2. Regular. Abdomen: Soft, nontender. Extremities: A +2 edema. Laboratory Data: H and H 9.1/25.9. Sodium 136, potassium 3.3, bicarb 28, BUN 16, creatinine 3.5, ca lcium 8.4, and phosphorus 3.2. Current Medications: The patient on include; 1.Calcium carbonate. 2.Epogen. 3.Lasix 80 b.i.d. 4.Hydralazine 50 t.i.d. 5.Lisinopril 20 daily. 6.Minoxidil 2.5 daily. 7.Pantoprazole. Assessment And Plan: 1.End-stage renal disease. I am going to go ahead and arrange for dialysis tomorrow. The patient i s going to be cleared from the renal standpoint as soon he gets a chair time. 2.Hypertension. We will continue to utilize the blood pressure to establish better volume control. I discontinue Norvasc. We will discontinue minoxidil. Continue lisinopril. 3.Iron deficiency anemia. Continue IV iron and Epogen. 4.Diabetes, as by primary. 5.Peripheral vascular disease, status post right big toe amputation, stable. SHAWN/MATEUSZ Voice ID: [id number] Report ID: [id number]
[2017-12-07] MEDS: ACETAMINOPHEN 500 MG TAB PO PRN (03:44)
[2017-12-07 05:38] LABS: Albumin 2.6 g/dL (3.2-5.5); Phosphorus 3.8 mg/dL (2.5-4.3); Potassium 3.2 mEq/L (3.6-5.0)
[2017-12-07] MEDS: INSULIN -REGULAR HUMAN 50 UNIT/0.5 ML ML SQ SCH ×4 (07:30→20:25)
[2017-12-07] MEDS: CALCIUM CARBONATE CHEW 500MG TAB PO SCH ×3 (07:30→17:08)
[2017-12-07] MEDS: EPOETIN ALFA 10,000 UNIT/ML VIAL IV SCH (08:54)
[2017-12-07] MEDS: SOD FERRIC GLUC COMPLX/SUCROSE 125 MG in NA CHLORIDE 0.9% 100 ML IV SCH (08:55)
[2017-12-07] MEDS: ATORVASTATIN 80 MG TAB PO SCH ×2 (09:00→11:02)
[2017-12-07] MEDS: VITAMIN D 5,000 UNIT CAP PO SCH ×2 (09:00→11:07)
[2017-12-07] MEDS: LISINOPRIL 20 MG TAB PO SCH ×2 (09:00→13:14)
[2017-12-07] MEDS: PANTOPRAZOLE 40MG TABLET PO SCH ×2 (09:00→11:01)
[2017-12-07] MEDS: HYDRALAZINE HCL 25 MG TABLET PO SCH ×3 (09:00→20:25)
[2017-12-07] MEDS: JUVEN PACKET PO SCH ×3 (09:00→20:25)
[2017-12-07] MEDS: DOCOSAHEXANOIC AC/EPA 1000 MG PO SCH ×3 (09:00→20:25)
[2017-12-07] MEDS: CITALOPRAM 10 MG TABLET PO SCH ×2 (09:00→11:01)
[2017-12-07] MEDS: FUROSEMIDE 40 MG/4 ML VIAL IV SCH ×3 (09:00→17:08)
[2017-12-07] MEDS: METOPROLOL TAR 50 MG TAB PO SCH ×3 (09:00→20:25)
--- NOTE | 2017-12-07 12:35 | P.DS ---
Admission Date: 12/01/17 Discharge Date: 12/07/17 Primary Care Provider: Brent Disposition: ROUTINE DISCHARGE Discharge Condition: GOOD Reason for Admission: Shortness of breath Consultations: Nephrology Surgery Procedures: HD catherter Placement. Right which was not usable and then Left which is functional. 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 superintendent container terminal 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 Diabetes mellitus complication status: with skin complications Diabetes mellitus complication detail: with foot ulcer Qualified Code(s): E11.621 - Type 2 diabetes mellitus with foot ulcer; L97.509 - Non-pressure chronic ulcer of other part of unspecified foot with unspecified severity; Z79.4 - exterminator (current) use of insulin (4) HTN (hypertension) Onset Date: 12/02/17 Current Visit: No Status: Chronic Qualifiers: Hypertension type: essential hypertension Qualified Code(s): I10 - Essential (primary) hypertension (5) Hyperlipidemia Onset Date: 12/02/17 Current Visit: No Status: Chronic Qualifiers: Hyperlipidemia type: mixed hyperlipidemia Qualified Code(s): E78.2 - Mixed hyperlipidemia (6) Coronary artery disease Onset Date: 12/02/17 Current Visit: No Status: Chronic Qualifiers: Coronary Disease-Associated Artery/Lesion type: unspecified vessel or lesion type [place] vs. transplanted heart: unspecified whether [place] or transplanted heart Associated angina: angina presence unspecified Qualified Code(s): I25.10 - Atherosclerotic heart disease of [place] coronary artery without angina pectoris (7) PVD (peripheral vascular disease) Onset Date: 12/02/17 Current Visit: No Status: Chronic Brief History of Present Illness: Patient is a 67-year-old gentleman who came to the hospital with difficulty breathing. Patient's respiratory status has worsened over the last few days. He says his breathing has been worse that he has been trying uses 's inhalers with little improvement. Patient has been following up with Dr. Colunga, and has been told that his renal function is down to a GFR of 13. Patient will probably need hemodialysis this year. However, he has not followed up in the last couple of months. On admission patient was found have anemia with worsening renal function. Patient's GFR is down to 10. Patient is also anemic which is probably related to his chronic kidney disease. Patient be admitted to the hospital for further evaluation. Hospital Course: Well during the hospital stay patient remained stable The patient was initially admitted to the hospital for dyspnea most likely secondary to volume overload is most likely secondary to chronic kidney failure. Nephrology was consulted who recommended the patient be started on hemodialysis at this time given the chronic renal failure and volume overload. Patient has kidney not able to function at an optimal level. General surgery was consulted for an HD catheter placement. Patient had a catheter placed on the right side however was nonfunctional. Patient had another catheter placed on the left side which is function patient received hemodialysis while here in the hospital. Patient did remain on IV Lasix while here in the hospital as well as he still making urine. Patient had marked improvement in his symptoms. Planning Consultant was consulted to arrange for an chair time for patient to be started on hemodialysis now. Patient received total 3 treatments here in the hospital. Patient had an hepatitis panel done here in the hospital which was negative except hepatitis B surface antibody which are reactive. Patient to follow up with nephrology and primary care doctor upon discharge and will also follow up with primary care doctor regarding his hepatitis screen. Patient and family made aware and this patient was discharged home once the dialysis chair time was available for him. Vital Signs/Physical Exam: Temp Pulse Resp BP Pulse Ox 98.1 F 77 12 162/70 H 95 12/07/17 12:00 12/07/17 12:00 12/07/17 12:00 12/07/17 12:12/07/17 12:00 General: Alert, In no apparent distress HEENT: Atraumatic, PERRLA, EOMI Neck: Supple, JVD not distended Respiratory: Clear to auscultation bilaterally, Normal air movement Cardiovascular: Regular rate/rhythm, Normal S1 S2 Gastrointestinal: Normal bowel sounds, No tenderness Musculoskeletal: No tenderness Integumentary: No rashes Neurological: Normal speech, Normal tone, Normal affect Lymphatics: No axilla or inguinal lymphadenopathy Laboratory Data at Discharge: WBC 7.3 K/uL (4.3-10.9) 12/02/17 10:35 Hgb 9.1 g/dL (13.6-17.9) L 12/02/17 10:35 Hct 25.9 % (39.6-49.0) L 12/02/17 10:35 Plt Count 232 K/uL (152-406) 12/02/17 10:35 PT 12.9 SECONDS (9.5-12.5) H 12/01/17 19:30 INR 1.09 12/01/17 19:30 APTT 30.0 SECONDS (24.3-36.9) 12/01/17 19:30 Sodium 136 mEq/L (135-145) 12/07/17 04:10 Potassium 3.2 mEq/L (3.6-5.0) L 12/07/17 04:10 BUN 20 mg/dL (6-20) 12/07/17 04:10 Creatinine 4.41 mg/dL (0.61-1.24) H 12/07/17 04:10 Glucose 91 mg/dL (65-120) 12/07/17 04:10 Phosphorus 3.8 mg/dL (2.5-4.3) 12/07/17 04:10 Magnesium 1.7 mg/dL (1.8-2.5) L 12/02/17 10:35 Total Bilirubin 0.7 mg/dL (0.3-1.2) 12/02/17 10:35 AST 21 IU/L (10-42) 12/02/17 10:35 ALT 13 IU/L (10-60) 12/02/17 10:35 Alkaline Phosphatase 104 IU/L (42-121) 12/02/17 10:35 B-Natriuretic Peptide 1350 pg/ml (<=100) H 12/01/17 19:30 Lipase 18 U/L (22-51) L 12/01/17 19:30 Home Medications: Aspirin [Aspir-Low] 81 mg PO DAILY 12/02/17 Atorvastatin Calcium [Lipitor] 80 mg PO DAILY 12/02/17 Citalopram Hydrobromide [Celexa] 20 mg PO DAILY 12/02/17 Docosahexanoic AC/Epa [Fish Oil 1,000 MG*] 1,000 mg PO BID 12/02/17 Ergocalciferol (Vitamin D2) [Ergocal] 5,000 unit PO EVERY 7TH DAY 12/02/17 Ferrous Gluconate 324 mg PO BID 12/02/17 Ferrous Sulfate [Ferrous Sulfate*] 325 mg PO BID 12/02/17 Furosemide [Lasix] 80 mg PO DAILY 12/02/17 Hydralazine HCl [Apresoline] 100 mg PO QID 12/02/17 Insulin Detemir [Levemir*] 40 unit SQ BEDTIME 12/02/17 Metoprolol Tartrate 50 mg PO BID 12/02/17 Multivitamin [Multiple Vitamins] 1 tab PO DAILY 12/02/17 Pantoprazole [Protonix Tab*] 40 mg PO DAILY 12/02/17 Lisinopril [Prinivil*] 20 mg PO DAILY #30 tab 12/07/17 New Medications: Lisinopril [Prinivil*] 20 mg PO DAILY #30 tab Patient Discharge Instructions: Please f/u with PCP in 1 to 2 week post discharge. Please f/u with Dr Cadet in 1 week post discharge. You are scheduled for HD now. Stop Medication. Minoxidil. Norvasc. New medication. Lisinopril. Continue taking all the medication as prescribed. Diet: Regular Activity: Ad anthony Followup: Suzanne Cadet MD [ACTIVE - CAN ADMIT] - 1 Week
[2017-12-07] MEDS: INSULIN DETEMIR 100 UNIT/1 ML INSULIN SQ SCH (20:25)
--- NOTE | 2017-12-08 01:15 | PN ---
Date of Progress Note: 12/07/2017 Subjective: The patient is doing better today. He denies PND, orthopnea. Shortness of breath is gradually improving. ROS: The patient denies melena, hematemesis. Objective: Vital Signs: Blood pressure is 140/60, heart rate 83. Chest: Crackles bilaterally at bases. Heart: S1, S2. Abdomen: Soft, benign. Extremities: Edema 1+. Laboratory Data: BUN 16, creatinine 3.5, sodium 136, potassium 3.3, hemoglobin 9.1. Impression And Plan: 1. Fluid overload. Continue low sodium diet. The patient will continue dialysis for end-stage renal disease. Ultrafiltration will be done to control hypervolemia. 2. Hypertension, on multiple blood pressure medication. Minoxidil was discontinued. Plan is to start lisinopril for hypertensive heart disease with some congestive heart failure and diastolic dysfunction. 3. Anemia in chronic kidney disease. Continue MARIANELA. 4. Renal osteodystrophy. Continue renal diet and binders. WESTON/MODL Voice ID: [id number] Report ID: [id number] TL
[2017-12-08] MEDS: INSULIN -REGULAR HUMAN 50 UNIT/0.5 ML ML SQ SCH (07:30)
[2017-12-08] MEDS: FUROSEMIDE 40 MG/4 ML VIAL IV SCH (08:46)
[2017-12-08] MEDS: DOCOSAHEXANOIC AC/EPA 1000 MG PO SCH (08:46)
[2017-12-08] MEDS: METOPROLOL TAR 50 MG TAB PO SCH (08:47)
[2017-12-08] MEDS: CITALOPRAM 10 MG TABLET PO SCH (08:47)
[2017-12-08] MEDS: ATORVASTATIN 80 MG TAB PO SCH (08:47)
[2017-12-08] MEDS: PANTOPRAZOLE 40MG TABLET PO SCH (08:47)
[2017-12-08] MEDS: HYDRALAZINE HCL 25 MG TABLET PO SCH (08:48)
[2017-12-08] MEDS: LISINOPRIL 20 MG TAB PO SCH (08:48)
[2017-12-08 08:50] VITALS: BP 167/71
[2017-12-08] MEDS: CALCIUM CARBONATE CHEW 500MG TAB PO SCH (08:51)
[2017-12-08] MEDS: JUVEN PACKET PO SCH (09:00)
[2017-12-08 09:19] VITALS: TEMP 98.2
[2017-12-08 10:06] VITALS: O2SAT 94
--- NOTE | 2017-12-08 11:06 | PN ---
Date of Progress Note: 12/08/2017 Subjective: This patient doing well. No shortness of breath. The patient status post dialysis yest erday, tolerated the dialysis. Physical Examination: Vital Signs: Blood pressure 167/71, pulse of 74. Chest: Crackles on the base. Heart: S1, S2. Regular. Systolic murmur. Abdomen: Soft, nontender. Extremities: Trace edema. Amputation of the right big toe. Laboratory Data: WBC 7.3, H and H 9.1/25.9, platelet 237. Sodium 136, potassium 3.2, bicarb 27, BUN 20, creatinine 4.4, calcium 8.3, phosphorus 3.8. Medications: Current medications the patient on its include: 1.Breathing treatment. 2.IV iron. 3.Epogen. 4.PhosLo. 5.Atorvastatin. 6.Hydralazine 50 t.i.d. 7.Lisinopril 20 b.i.d. 8.Metoprolol 50 b.i.d. 9.Pantoprazole. Assessment And Plan: 1.End-stage renal disease. We will continue the patient on dialysis Thursday, Thursday, Thursday. The patient is schedule as outpatient tomorrow. 2.Hypertension, controlled, not optimal. We will utilize blood pressure for more ultrafiltration. 3.Anemia of chronic kidney disease with iron deficiency anemia. Continue IV iron. 4.Over volume, recovered. We will continue dialysis to optimize the fluid. SHAWN/MATEUSZ Voice ID: [id number] Report ID: [id number]
== END 2017-12-08 10:50 | disposition home or self-care (01) | DRG 291 ==
LOC: ER 18:46 → ERHOLD 20:34 → 4TH 21:39
PROVIDERS: ADMIT Hospitalist; ATTEND Family Medicine
PROC: 05H633Z Insertion of Infusion Device into Left Subclavian Vein, Percutaneous Approach (ICD-10-PCS; principal; 2017-12-03 12:15)
PROC: 05HM33Z Insertion of Infusion Device into Right Internal Jugular Vein, Percutaneous Approach (ICD-10-PCS; 2017-12-04)
PROC: 5A1D70Z Performance of Urinary Filtration, Intermittent, Less than 6 Hours Per Day (ICD-10-PCS; 2017-12-04)
PROC: 5A1D70Z Performance of Urinary Filtration, Intermittent, Less than 6 Hours Per Day (ICD-10-PCS; 2017-12-05)
PROC: 5A1D70Z Performance of Urinary Filtration, Intermittent, Less than 6 Hours Per Day (ICD-10-PCS; 2017-12-07)
DX: I13.2 Hypertensive heart and chronic kidney disease with heart failure and with stage 5 chronic kidney disease, or end stage renal disease (principal); N18.6 End stage renal disease; E87.2 Acidosis; N25.81 Secondary hyperparathyroidism of renal origin; E11.9 Type 2 diabetes mellitus without complications; E11.22 Type 2 diabetes mellitus with diabetic chronic kidney disease; D63.1 Anemia in chronic kidney disease; I73.9 Peripheral vascular disease, unspecified; I50.9 Heart failure, unspecified; N25.0 Renal osteodystrophy; I25.10 Atherosclerotic heart disease of native coronary artery without angina pectoris; G62.9 Polyneuropathy, unspecified; F41.8 Other specified anxiety disorders; E66.9 Obesity, unspecified; F17.200 Nicotine dependence, unspecified, uncomplicated
CPT/HCPCS: 36415; 51702; 70450; 71045; 71250; 76000; 76770; 80048; 80053; 80069; 80076; 81003; 82550; 82553; 82607; 82728; 82746; 82962; 83540; 83690; 83735; 83880; 83970; 84100; 84145; 84443; 84466; 84484; 85025; 85044; 85610; 85730; 86317; 86704; 86706; 86803; 86850; 86900; 86901; 87040; 87086; 87088; 87340; 90935; 93005; 93306; 93970; 96361; 96365; 96375; 99285; C1752; C9113; G0257; J0456; J0690; J0696; J1644; J2250; J2405; J2916; J3010; J7030; P9016; Q4081

== ENCOUNTER 2018-06-12 22:55 | Inpatient (IN) | payer OTHER ==
--- OUTSIDE RECORDS SUMMARY | 2018-06-12 22:57 | XMS REPORT | Summary of Care ---
:1950 Author Organization [facility] Address [address] [place], [place] [address]- Encounter HQ Seveor(FIN) [id number] Date(s): 03/02/18 - 03/02/18 [facility] [address] [place] [address]- Discharge Disposition: Home or Self Care Attending Physician: Thomas Valencia MD Referring Physician: Thomas Valencia MD Vital Signs Most recent to oldest 1 2 3 [Reference Range]: Height 182.88 cm (02/25/18 3:08 PM) Temperature Oral [96.4-99.1 98.1 DegF DegF] (02/25/18 3:12 PM) Blood Pressure [90-140/60-90 175/87 mmHg 184/72 mmHg 178/75 mmHg mmHg] *HI* *HI* *HI* (03/02/18 4:30 PM) (03/02/18 4:15 PM) (03/02/18 4:00 PM) Respiratory Rate [14-20 BRMIN] 14 BRMIN 15 BRMIN 16 BRMIN (03/02/18 4:30 PM) (03/02/18 4:15 PM) (03/02/18 4:00 PM) Peripheral Pulse Rate [60-100 88 bpm bpm] (02/25/18 3:12 PM) Weight 100 kg (02/25/18 3:08 PM) Body Mass Index 29.9 m2 (02/25/18 3:08 PM) Problem List Condition Effective Dates Status Health Status Informant Diabetes mellitus(Confirmed) Active ESRD (end stage renal Active disease)(Confirmed) Hypertension(Confirmed) Active Neuropathy(Confirmed) Active Allergies, Adverse Reactions, Alerts Substance Reaction Severity Status NKDA Active Medications acetaminophen-hydrocodone 325 mg-10 mg oral tablet 1 tab, Route: PO, Dosing Weight 100, kg, Q4H, PRN Pain Score 4-6, Start date: 14:36:00 CDT,Duration: 30 day, Stop date: 04/01/18 14:35:00 CDT Start Date: 03/02/18 Stop Date: 03/03/18 Status: Discontinuedacetaminophen-hydrocodone 325 mg-5 mg oral tablet 1 tab, Route: PO, Dosing Weight 100, kg, Q4H, PRN Pain Score 4-6, Start date: 14:36:00 CDT,Duration: 30 day, Stop date: 04/01/18 14:35:00 CDT Start Date: 03/02/18 Stop Date: 03/03/18 Status: DiscontinuedAncef + sterile water 20 mL 2 gm, Route: IVP, PRE OP, Dosing Weight 100, kg, Start date: 02/25/18 16:00:00 CDT, Duration: 30 day, Stop date: 03/27/18 15:59:00 CDT, ABX Indication: Surgical Prophylaxis Notes: (Same As: Angela Aiken) MEDICATION WASTE Product Size: 1000 mgProduct Wasted: ___ mg Start Date: 02/25/18 Stop Date: 03/03/18 Status: DiscontinuedANES fentaNYL 50 microgram, Route: IVP, Q5Min, Dosing Weight 100, kg, PRN Pain Score 7-10, Priority: Routine, Start date: 03/02/18 14:57:00 CDT, Duration: 2 doses or times , Stop date: Limited # of times Start Date: 03/02/18 Stop Date: 03/02/18 Status: DiscontinuedANES flumazenil 0.2 mg, Route: IVP, PRN, Dosing Weight 100, kg, PRN Benzodiazepine Reversal, Initial dose, Start date: 03/02/18 14:57:00 CDT, Duration: 30 day, Stop date: 14:56:00 CDT Start Date: 03/02/18 Stop Date: 03/02/18 Status: DiscontinuedANES hydrALAZINE 10 mg, Route: IVP, Q20Min, Dosing Weight 100, kg, PRN Elevated BP, Start date: 03/02/18 14:57:00 CDT, Duration: 2 doses or times, Stop date: Limited # of times Start Date: 03/02/18 Stop Date: 03/02/18 Status: DiscontinuedANES metoprolol 1 mg, Route: IVP, Q5Min, Dosing Weight 100, kg, PRN Other -See Comment, Start date: 03/02/18 14:57:00 CDT, Duration: 5 doses or times, Stop date: Limited # of times Start Date: 03/02/18 Stop Date: 03/02/18 Status: DiscontinuedANES naloxone 0.4 mg, Route: IVP, Q2MIN, Dosing Weight 100, kg, PRN Narcotic Reversal, Start date: 03/02/18 14:57:00 CDT, Duration: 8 doses or times, Stop date: Limited # of times Start Date: 03/02/18 Stop Date: 03/02/18 Status: DiscontinuedANES ondansetron 4 mg, Route: IVP, ONCE, Dosing Weight 100, kg, PRN Nausea & Vomiting, Start date: 03/02/18 14:57:00 CDT Start Date: 03/02/18 Stop Date: 03/02/18 Status: CompletedANES oxyCODONE 5 mg, Route: PO, Drug form: TAB, Q4H, Dosing Weight 100, kg, PRN Pain Score 4-6 , Start date: 03/02/18 14:57:00 CDT, Duration: 30 day, Stop date: 04/01/18 14:56 :00 CDT Start Date: 03/02/18 Stop Date: 03/02/18 Status: Discontinuedaspirin 81 mg tablet, enteric coated 81 mg=1 tab, PO, QPM, # 90 tab, 3 Refill(s) Start Date: 02/25/18 Status: Orderedatorvastatin 40 mg oral tablet 40 mg=1 tab, PO, QPM, 0 Refill(s) Start Date: 02/25/18 Status: OrderedceFAZolin (ANES) Route: IV, Drug form: INJ, ONCE, Stop date: 03/02/18 14:17:00 CDT Start Date: 03/02/18 Stop Date: 03/02/18 Status: Completedcitalopram 20 mg oral tablet 20 mg=1 tab, PO, Daily, 0 Refill(s) Start Date: 02/25/18 Status: Orderedfamotidine (ANES) Route: IV, Drug form: INJ, ONCE, Stop date: 03/02/18 14:12:00 CDT Start Date: 03/02/18 Stop Date: 03/02/18 Status: CompletedfentaNYL (ANES) Route: IV, Drug form: INJ, ONCE, Stop date: 03/02/18 14:17:00 CDT Start Date: 03/02/18 Stop Date: 03/02/18 Status: Completedferrous gluconate 324 mg (37.5 mg elemental iron) oral tablet 324 mg=1 tab, PO, QPM, 0 Refill(s) Start Date: 02/25/18 Status: OrderedFish Oil 1000 mg oral capsule 2,000 mg=2 cap, PO, BID, 0 Refill(s) Start Date: 02/25/18 Status: OrderedhydrALAZINE 100 mg oral tablet 100 mg=1 tab, PO, Q6H, 0 Refill(s) Start Date: 02/25/18 Status: OrderedLasix 40 mg oral tablet 40 mg=1 tab, PO, BID, 0 Refill(s) Start Date: 02/25/18 Status: OrderedLevemir 100 units/mL 30 units, SUB-Q, QPM (Insulin), 0 Refill(s) Start Date: 02/25/18 Status: Orderedlidocaine (ANES) Route: IV, Drug form: INJ, ONCE, Stop date: 03/02/18 14:17:00 CDT Start Date: 03/02/18 Stop Date: 03/02/18 Status: Completedmetoprolol tartrate 50 mg oral tablet 50 mg=1 tab, PO, BID, 0 Refill(s) Start Date: 02/25/18 Status: Orderedmidazolam (ANES) Route: IV, Drug form: SOLN, ONCE, Stop date: 03/02/18 14:12:00 CDT Start Date: 03/02/18 Stop Date: 03/02/18 Status: Completedmorphine Sulfate 2 mg, Route: IVP, Q3H, Dosing Weight 100, kg, PRN Pain Score 1-3, Start date: 14:36:00 CDT,Duration: 30 day, Stop date: 04/01/18 14:35:00 CDT Start Date: 03/02/18 Stop Date: 03/03/18 Status: DiscontinuedoxyCODONE 5 mg oral tablet 10 mg, Route: PO, Drug form: TAB, ONCE, Dosing Weight 100, kg, PRN Pain Score 7- 10, Start date: 03/02/18 15:57:00 CDT Start Date: 03/02/18 Stop Date: 03/02/18 Status: Completedpantoprazole 40 mg oral enteric coated tablet 40 mg=1 tab, PO, QPM, 0 Refill(s) Start Date: 02/25/18 Status: Orderedphenylephrine (ANES) Route: IV, Drug form: INJ, ONCE, Stop date: 03/02/18 14:17:00 CDT Start Date: 03/02/18 Stop Date: 03/02/18 Status: Completedpropofol (ANES) Route: IV, Drug form: INJ, ONCE, Stop date: 03/02/18 14:17:00 CDT Start Date: 03/02/18 Stop Date: 03/02/18 Status: CompletedSodium Chloride 0.9% IV (ANES) 500 mL Route: IV, Total Volume: 500, Start date: 03/02/18 12:57:00 CDT, Stop date: 06/10 13:57:00 CDT Start Date: 03/02/18 Stop Date: 03/02/18 Status: CompletedSodium Chloride 0.9% IV 500 mL 500 mL, Rate: 25 ml/hr, Infuse over: 20 hr, Route: IV, Dosing Weight 100 kg, Total Volume: 500, Start date: 03/02/18 10:25:00 CDT, Duration: 30 day, Stop date: 04/01/18 10:24:00 CDT, 2.27, m2 Start Date: 03/02/18 Stop Date: 03/02/18 Status: Discontinuedvancomycin (ANES) 1000 mg Route: IV, Drug form: INJ, Start date: 03/02/18 13:12:00 CDT, Stop date: 14:12:00 CDT Start Date: 03/02/18 Stop Date: 03/02/18 Status: Completedvancomycin + Dextrose 5% in Water IV 250 mL 1 gm, Route: IVPB, PRE OP, kg, Start date: 02/25/18 16:00:00 CDT, Duration: 30 day, Stop date: 03/27/18 15:59:00 CDT, ABX Indication: Surgical Prophylaxis Notes: TIME CRITICAL MEDICATION(Same As: Vancocin)Infusion rate< 1000 mg: infuse over 1 [id number] - 1500 mg: infuse over 1.5 [id number] - 2000 mg: infuse over 2 hours> 2001 mg: infuse over 2.5 hoursFor adult patients only: Round to nearest 250 mg per Medical Staff approval MEDICATION WASTE Product Size: 1000 mgProduct Wasted: ___ mg Start Date: 02/25/18 Stop Date: 03/03/18 Status: Discontinued Results BLOOD BANK RESULTS Most recent to oldest [Reference Range]: 1 ABO/Rh A POS *Unknown* (02/25/18 3:45 PM) Antibody Scrn Negative (02/25/18 3:45 PM) ELECTROLYTES Most recent to oldest [Reference Range]: 1 Sodium Lvl [135-145 mEq/L] 140 mEq/L (02/25/18 3:45 PM) Potassium Lvl [3.5-5.1 mEq/L] 5.2 mEq/L *HI* (02/25/18 3:45 PM) Chloride Lvl [95-109 mEq/L] 104 mEq/L (02/25/18 3:45 PM) CO2 [24-32 mEq/L] 27 mEq/L (02/25/18 3:45 PM) AGAP [10.0-20.0 mEq/L] 14.2 mEq/L (02/25/18 3:45 PM) CHEM PANEL Most recent to oldest [Reference Range]: 1 Creatinine Lvl [0.50-1.40 mg/dL] 8.05 mg/dL *HI* (02/25/18 3:45 PM) eGFR 6 mL/min/1.73m2 1 *NA* (02/25/18 3:45 PM) BUN [7-22 mg/dL] 56 mg/dL *HI* (02/25/18 3:45 PM) Glucose Lvl [70-99 mg/dL] 154 mg/dL *HI* (02/25/18 3:45 PM) Calcium Lvl [8.5-10.5 mg/dL] 8.9 mg/dL (02/25/18 3:45 PM) 1Result Comment: The eGFR is calculated using the CKD-EPI formula. In most young , healthy individualsthe eGFR will be >90 mL/min/1.73m2. The eGFR declines with age. An eGFR of 60-89 may be normal insome populations, particularly the elderly, for whom the CKD-EPI formula has not been extensively validated. Use of the eGFR is not recommended in the following populations: Individuals with unstable creatinine concentrations, including patients and those with serious co-morbid conditions. Patients with extremes in muscle mass or diet. The data above are obtained from the National Kidney Disease Education Program ( NKDEP) which additionally recommends that when the eGFR is used in patients with extremes of body mass index for purposesof drug dosing, the eGFR should be multiplied by the estimated BMI.SPECIAL CHEMISTRY Most recent to oldest [Reference Range]: 1 Hgb A1C [<=5.6 %] 6.8 % *HI* (02/25/18 3:45 PM) HEMATOLOGY Most recent to oldest [Reference Range]: 1 WBC [3.7-10.4 K/CMM] 9.4 K/CMM (02/25/18 3:45 PM) RBC [4.70-6.10 M/CMM] 3.60 M/CMM *LOW* (02/25/18 3:45 PM) Hgb [14.0-18.0 g/dL] 11.8 g/dL *LOW* (02/25/18 3:45 PM) Hct [42.0-54.0 %] 34.7 % *LOW* (02/25/18 3:45 PM) MCV [80.0-94.0 fL] 96.4 fL *HI* (02/25/18 3:45 PM) MCH [27.0-31.0 pg] 32.8 pg *HI* (02/25/18 3:45 PM) MCHC [32.0-36.0 g/dL] 34.0 g/dL (02/25/18 3:45 PM) RDW [11.5-14.5 %] 15.4 % *HI* (02/25/18 3:45 PM) MPV [7.4-10.4 fL] 7.2 fL *LOW* (02/25/18 3:45 PM) Platelet [133-450 K/CMM] 217 K/CMM (02/25/18 3:45 PM) Segs [45.0-75.0 %] 62.4 % (02/25/18 3:45 PM) Lymphocytes [20.0-40.0 %] 21.8 % (02/25/18 3:45 PM) Monocytes [2.0-12.0 %] 11.1 % (02/25/18 3:45 PM) Eosinophils [0.0-4.0 %] 4.1 % *HI* (02/25/18 3:45 PM) Basophils [0.0-1.0 %] 0.6 % (02/25/18 3:45 PM) Segs-Bands # [1.5-8.1 K/CMM] 5.9 K/CMM (02/25/18 3:45 PM) Lymphocytes # [1.0-5.5 K/CMM] 2.1 K/CMM (02/25/18 3:45 PM) Monocytes # [0.0-0.8 K/CMM] 1.0 K/CMM *HI* (02/25/18 3:45 PM) Eosinophils # [0.0-0.5 K/CMM] 0.4 K/CMM (02/25/18 3:45 PM) Basophils # [0.0-0.2 K/CMM] 0.1 K/CMM (02/25/18 3:45 PM) PT [12.0-14.7 seconds] 12.1 seconds (02/25/18 3:45 PM) INR [0.85-1.17] 0.90 (02/25/18 3:45 PM) PTT [22.9-35.8 seconds] 28.7 seconds (02/25/18 3:45 PM) Immunizations No data available for this section Procedures Procedure Date Related Diagnosis Body Site Status Amputation of toe Completed Procedure Completed Social History Social History Type Response Substance Abuse Use: None. Alcohol Past Smoking Status Current every day smoker; Type: Cigarettes; Exposure to Tobacco Smoke self; Cigarette Smoking Last 365 Days Yes; Reg Smoking Cessation Counseling Yes; Tobacco use per day: 20; entered on: 03/02/18 Assessment and Plan No data available for this section
--- OUTSIDE RECORDS SUMMARY | 2018-06-12 22:57 | XMS REPORT | Summary of Care ---
:1950 Author Organization [facility] Address [address] [place], [place] [address]- Encounter HQ Ely_evgeny(FIN) [id number] Date(s): 03/06/18 - 03/06/18 [facility] [address] [place] [address]- Encounter Diagnosis Visit for wound check (Discharge Diagnosis) - 03/06/18 Discharge Disposition: Home or Self Care Attending Physician: Nolan Duarte MD Vital Signs Most recent to oldest [Reference Range]: 1 2 Height 182.88 cm (03/06/18 8:46 AM) Temperature Oral [96.4-99.1 DegF] 98.0 DegF 98.5 DegF (03/06/18 9:49 AM) (03/06/18 8:46 AM) Blood Pressure [90-140/60-90 mmHg] 114/50 mmHg 118/45 mmHg (03/06/18 9:49 AM) (03/06/18 8:46 AM) Respiratory Rate [14-20 BRMIN] 16 BRMIN 18 BRMIN (03/06/18 9:49 AM) (03/06/18 8:46 AM) Peripheral Pulse Rate [60-100 bpm] 80 bpm 85 bpm (03/06/18 9:49 AM) (03/06/18 8:46 AM) Weight 104.545 kg (03/06/18 8:46 AM) Body Mass Index 31.26 m2 (03/06/18 8:46 AM) Problem List Condition Effective Dates Status Health Status Informant Diabetes mellitus(Confirmed) Active ESRD (end stage renal Active disease)(Confirmed) Hypertension(Confirmed) Active Neuropathy(Confirmed) Active Allergies, Adverse Reactions, Alerts Substance Reaction Severity Status NKDA Active Medications No data available for this section Results No data available for this section Immunizations No data available for this section [...] Tobacco use per day: 20; entered on: 03/06/18 Assessment and Plan No data available for this section
--- OUTSIDE RECORDS SUMMARY | 2018-06-12 22:57 | XMS REPORT ---
:1950 Author [facility] Address [address] [place] [address] [place] [id number] Care Team Providers Name Role Phone DR COLLEEN BUTTS Unavailable Unavailable Problems This patient has no known problems. Allergies, Adverse Reactions, Alerts This patient has no known allergies or adverse reactions. Medications This patient has no known medications. Encounters Start End Encounter Admission Attending Care Care Encounter Date/Time Date/Time Type Type Clinicians Facility Department ID 2017-01-23 Inpatient C [facility] [id number] 08:00:00 MUSTAQ Results Test Description Test Time Test Comments Text Results Atomic Results Result Comments NM GASTRIC EMPTYING 2017-01-27 22:13:14 Examination: Nuclear medicine gastric STUDY W ISOTOPE emptying studyLocation code: [id number]: NoneDiscussion:Clinical history is remarkable for nausea, decreased appetite. After the oraladministration of 1.6 mCi of technetium 99m labeled sulfur colloid scrambledegg, dynamic AUSTRIAN imaging is performed. Time to one half emptying is 27 minutes,rapid emptying.Impression:1. No evidence of gastroparesis. The emptying time slightly rapid.
--- OUTSIDE RECORDS SUMMARY | 2018-06-12 22:57 | XMS REPORT | Continuity of Care Document ---
:1950 Author Organization Interface Problems Problem Status Onset Classification Date Comments Source Date Reported UNK Active 04/02/20 [place] [id number] ARM PAIN Active 03/06/20 [place] [address] Diabetes Active Problem 03/09/2018 [facility] mellitus ESRD (<span Active Problem 03/09/2018 [facility] ID="[id number] ">Confirmed</spa n>) Hypertension Active Problem 03/09/2018 [facility] Neuropathy Active Problem 03/09/2018 [facility] Medications Medication Details Route Status Patient Ordering Order Source Instructions Provider Date Oxycodone 10 mg, Route: Inactive Hydrochloride 5 PO, Drug form: 2017 [facility] Oral Tablet TAB, ONCE, Dosing Weight 100, kg, PRN Pain Score 7-10, Start date: 03/02/18 15:57:00 CDT Metoprolol 1 mg, Route: Inactive IVP, Q5Min, 2017 [facility] Dosing Weight 100, kg, PRN Other -See Comment, Start date: 03/02/18 14:57:00 CDT, Duration: 5 doses or times, Stop date: Limited # of times Fentanyl 50 microgram, Inactive Route: IVP, 2017 [facility] Q5Min, Dosing Weight 100, kg, PRN Pain Score 7-10, Priority: Routine, Start date: 03/02/18 14:57:00 CDT, Duration: 2 doses or times, Stop date: Limited # of times Oxycodone 5 mg, Route: PO, Inactive Drug form: TAB, 2017 [facility] Q4H, Dosing Weight 100, kg, PRN Pain Score 4-6, Start date: 03/02/18 14:57:00 CDT, Duration: 30 day, Stop date: 04/01/18 14:56:00 CDT Naloxone 0.4 mg, Route: Inactive IVP, Q2MIN, 2017 [facility] Dosing Weight 100, kg, PRN Narcotic Reversal, Start date: 03/02/18 14:57:00 CDT, Duration: 8 doses or times, Stop date: Limited # of times Ondansetron 4 mg, Route: Inactive IVP, ONCE, 2017 [facility] Dosing Weight 100, kg, PRN Nausea & Vomiting, Start date: 03/02/18 14:57:00 CDT Hydralazine 10 mg, Route: Inactive IVP, Q20Min, 2017 [facility] Dosing Weight 100, kg, PRN Elevated BP, Start date: 03/02/18 14:57:00 CDT, Duration: 2 doses or times, Stop date: Limited # of times Flumazenil 0.2 mg, Route: Inactive IVP, PRN, Dosing 2017 [facility] Weight 100, kg, PRN Benzodiazepine Reversal, Initial dose, Start date: 03/02/18 14:57:00 CDT, Duration: 30 day, Stop date: 04/01/18 14:56:00 CDT Morphine 2 mg, Route: No Longer IVP, Q3H, Dosing Active 2017 [facility] Weight 100, kg, PRN Pain Score 1-3, Start date: 03/02/18 14:36:00 CDT, Duration: 30 day, Stop date: 04/01/18 14:35:00 CDT Acetaminophen 1 tab, Route: No Longer 325 MG / PO, Dosing Active 2017 [facility] Hydrocodone Weight 100, kg, Bitartrate 5 MG Q4H, PRN Pain Oral Tablet Score 4-6, Start date: 03/02/18 14:36:00 CDT, Duration: 30 day, Stop date: 04/01/18 14:35:00 CDT Acetaminophen 1 tab, Route: No Longer 325 MG / PO, Dosing Active 2017 [facility] Hydrocodone Weight 100, kg, Bitartrate 10 Q4H, PRN Pain MG Oral Tablet Score 4-6, Start date: 03/02/18 14:36:00 CDT, Duration: 30 day, Stop date: 04/01/18 14:35:00 CDT propofol (ANES) Route: IV, Drug Inactive form: INJ, ONCE, 2017 [facility] Stop date: 03/02/18 14:17:00 CDT fentaNYL (ANES) Route: IV, Drug Inactive MH form: INJ, ONCE, 2017 [facility] Stop date: 03/02/18 14:17:00 CDT lidocaine Route: IV, Drug Inactive MH (ANES) form: INJ, ONCE, 2017 [facility] Stop date: 03/02/18 14:17:00 CDT ceFAZolin Route: IV, Drug Inactive MH (ANES) form: INJ, ONCE, 2017 [facility] Stop date: 03/02/18 14:17:00 CDT phenylephrine Route: IV, Drug Inactive MH (ANES) form: INJ, ONCE, 2017 [facility] Stop date: 03/02/18 14:17:00 CDT midazolam Route: IV, Drug Inactive MH (ANES) form: SOLN, 2017, Stop date: 03/02/18 14:12:00 CDT famotidine Route: IV, Drug Inactive MH (ANES) form: INJ, ONCE, 2017 [facility] Stop date: 03/02/18 14:12:00 CDT vancomycin Route: IV, Drug Inactive MH (ANES) 1000 mg form: INJ, Start 2017 [facility] date: 03/02/18 13:12:00 CDT, Stop date: 03/02/18 14:12:00 CDT Sodium Chloride Route: IV, Total Inactive 0.9% IV (ANES) Volume: 500, 2017 [facility] 500 mL Start date: 03/02/18 12:57:00 CDT, Stop date: 03/02/18 13:57:00 CDT Sodium Chloride 500 mL, Rate: 25 Inactive 0.9% IV 500 mL ml/hr, Infuse 2017 [facility] over: 20 hr, Route: IV, Dosing Weight 100 kg, Total Volume: 500, Start date: 03/02/18 10:25:00 CDT, Duration: 30 day, Stop date: 04/01/18 10:24:00 CDT, 2.27, m2 Ancef + sterile 2 gm, Route: No Longer water 20 mL IVP, PRE OP, Active 2017 [facility] Dosing Weight 100, kg, Start date: 02/25/18 16:00:00 CDT, Duration: 30 day, Stop date: 03/27/18 15:59:00 CDT, ABX Indication: Surgical ProphylaxisNotes : (Same As: Angela Aiken) MEDICATION WASTE Product Size: 1000 mg Product Wasted: ___ mg Vancomycin 1 gm, Route: No Longer IVPB, PRE OP, Active 2017 [facility] kg, Start date: 02/25/18 16:00:00 CDT, Duration: 30 day, Stop date: 03/27/18 15:59:00 CDT, ABX Indication: Surgical ProphylaxisNotes : TIME CRITICAL MEDICATION (Same As: Vancocin) Infusion rate 2001 mg: infuse over 2.5 hours For adult patients only: Round to nearest 250 mg per Medical Staff approval MEDICATION WASTE Product Size: 1000 mg Product Wasted: ___ mg Aspirin 81 MG 81 mg=1 tab, PO, Active Enteric Coated QPM, # 90 tab, [address] [facility] Tablet Refill(s) citalopram 20 20 mg=1 tab, PO, Active mg oral tablet Daily, [address] [facility] Refill(s) ferrous 324 mg=1 tab, Active gluconate 324 PO, QPM, [address] [facility] mg (37.5 mg Refill(s) elemental iron) oral tablet insulin detemir 30 units, SUB-Q, Active 100 UNT/ML QPM (Insulin), [address] [facility] Injectable Refill(s) Solution [Levemir] Furosemide 40 40 mg=1 tab, PO, Active MG Oral Tablet BID, 0 Refill(s) 2017 [Lasix] Fish Oil 1000 2,000 mg=2 cap, Active mg oral capsule PO, BID, [address] [facility] Refill(s) pantoprazole 40 40 mg=1 tab, PO, Active mg oral enteric QPM, 0 Refill(s) 2017 [facility] coated tablet Hydralazine 100 mg=1 tab, Active Hydrochloride PO, Q6H, [address] [facility] 100 MG Oral Refill(s) Tablet atorvastatin 40 40 mg=1 tab, PO, Active mg oral tablet QPM, 0 Refill(s) 2017 [facility] metoprolol 50 mg=1 tab, PO, Active tartrate 50 mg BID, 0 Refill(s) 2017 [facility] oral tablet Allergies, Adverse Reactions, Alerts Substance Category Reaction Severity Reaction Status Date Comments Source type Reported Immunizations Immunization Date Given Site Status Last Updated Comments Source Results Order Name Results Value Reference Date Interpretation Comments Source Range BLOOD BANK ABO/Rh A POS 02/25 RESULTS /2017 [facility] BLOOD BANK Antibody Negative 02/25 RESULTS Scrn /2017 [facility] (02/25/18 3:45 PM) ELECTROLYT AGAP 14.2 meq/L 10.0 - 02/[address] [facility] ELECTROLYT eGFR 6 02/25 Result Comment: The eGFR is calculated using the CKD-EPI formula. In most young, healthy individuals the eGFR will be >90 mL/ min/1.73m2. The eGFR declines with age. An eGFR of 60-89 may be normal in ES mL/min/1.7 some populations, particularly the elderly, for whom the CKD-EPI formula has not been extensively validated. Use of the eGFR is not recommended in the following populations: [facility] 3m2 Individuals with unstable creatinine concentrations, including patients and those with serious co-morbid conditions. Patients with extremes in muscle mass or diet. The data above are obtained from the National Kidney Disease Education Program (NKDEP) which additionally recommends that when the eGFR is used in patients with extremes of body mass index for purposes of drug dosing, the eGFR should be multiplied by the estimated BMI. ELECTROLYT Chloride Lvl 104 meq/L 95 - 109 02/25 [facility] ELECTROLYT CO2 27 meq/L 24 - 32 02/25 [facility] ELECTROLYT Creatinine 8.05 mg/dL 0.50 - 02/[address] [facility] ELECTROLYT Sodium Lvl 140 meq/L 135 - 145 02/25 [facility] ELECTROLYT Calcium Lvl 8.9 mg/dL 8.5 - 10.5 02/25 [facility] ELECTROLYT Potassium 5.2 meq/L 3.5 - 5.1 02/[address] [facility] ELECTROLYT BUN 56 mg/dL 7 - 22 02/25 [facility] ELECTROLYT Glucose Lvl 154 mg/dL 70 - 99 02/25 [facility] HEMATOLOGY Monocytes # 1.0 K/CMM 0.0 - 0.8 02/25 [facility] HEMATOLOGY Eosinophils 0.4 K/CMM 0.0 - 0.5 07/ # /2018 [facility] HEMATOLOGY Basophils # 0.1 K/CMM 0.0 - 0.2 07/ /2017 [facility] HEMATOLOGY Segs 62.4 % 45.0 - 07/ 75.0 /2017 [facility] HEMATOLOGY Basophils 0.6 % 0.0 - 1.0 07/ MH /2017 [facility] HEMATOLOGY Eosinophils 4.1 % 0.0 - 4.0 / /2017 [facility] HEMATOLOGY Monocytes 11.1 % 2.0 - 12.0 07/ MH /2018 [facility] HEMATOLOGY Lymphocytes 21.8 % 20.0 - 07/ 40.0 /2018 [facility] HEMATOLOGY Segs-Bands # 5.9 K/CMM 1.5 - 8.1 07/ /2017 [facility] HEMATOLOGY Lymphocytes 2.1 K/CMM 1.0 - 5.5 07/ # /2018 [facility] HEMATOLOGY PT 12.1 s 12.0 - 02/25 14.7 /2017 [facility] HEMATOLOGY INR 0.90 0.85 - 02/25 1.17 /2017 [facility] HEMATOLOGY PTT 28.7 s 22.9 - 02/25 35.8 /2017 [facility] HEMATOLOGY MPV 7.2 fL 7.4 - 10.4 07 /2017 [facility] HEMATOLOGY RBC 3.60 M/CMM 4.70 - 02/25 6.10 /2017 [facility] HEMATOLOGY Hgb 11.8 g/dL 14.0 - 02/25 18.0 /2017 [facility] HEMATOLOGY MCH 32.8 pg 27.0 - 02/25 31.0 /2017 [facility] HEMATOLOGY MCHC 34.0 g/dL 32.0 - 02/25 36.0 /2017 [facility] HEMATOLOGY WBC 9.4 K/CMM 3.7 - 10.4 07 /2017 [facility] HEMATOLOGY Hct 34.7 % 42.0 - 07 54.0 /2018 [facility] HEMATOLOGY MCV 96.4 fL 80.0 - 02/25 94.0 /2017 [facility] HEMATOLOGY Platelet 217 K/CMM 133 - 450 07 /2017 [facility] HEMATOLOGY RDW 15.4 % 11.5 - 07 14.5 /2017 [facility] SPECIAL Hgb A1C 6.8 % <=5.6 % 02/25 CHEMISTRY /2017 [facility] Chest 2 Chest 2 Patient Name: CAREY COOPER 02/25 - views DX views DX /2017 - [facility] : 1950; Age: 67 years y/o Male MR: [id number] Read by: Abebe Logan MD Dictated Date/time: 02/25/18 16:16 Electronically Signed by: Abebe Logan MD 02/25/18 16:20 FINAL REPORT * CHEST, 2 views HISTORY: Preoperative study, coughing. COMPARISON: None TECHNIQUE: Frontal and lateral radiographs of the chest were obtained. FINDINGS: There appears be mild pleural-parenchymal scarring in the right base. There is no evidence for an active or acute process. The lungs are clear. There are no pulmonary infiltrates or pleural effusions. The heart and pulmonary vasculature are within normal limits. There are mild scattered degenerative changes involving the thoracic spine. The regional skeleton is otherwise unremarkable. There is a right IJ PermCath which terminates in the mid superior vena cava. IMPRESSION: 1. No active disease. 2. Mild pleural apical scarring in the right base. 3. The tip of the right IJ PermCath is in the mid superior vena cava. SL: [facility] Vital Signs Vital Sign Value Date Comments Source Heart Rate 80 03/06/2018 [facility] Respitory Rate 16 03/06/2018 [facility] Systolic (mm Hg) 114 03/06/2018 [facility] Diastolic (mm Hg) 50 03/06/2018 [facility] Temperature Oral (F) 98.0 F 03/06/2018 [facility] Systolic (mm Hg) 118 03/06/2018 [facility] Diastolic (mm Hg) 45 03/06/2018 [facility] Heart Rate 85 03/06/2018 [facility] Respitory Rate 18 03/06/2018 [facility] Temperature Oral (F) 98.5 F 03/06/2018 [facility] BMI Calculated 31.26 03/06/2018 [facility] Weight 104.545 03/06/2018 [facility] Height 182.88 cm 03/06/2018 [facility] Systolic (mm Hg) 175 03/02/2018 [facility] Diastolic (mm Hg) 87 03/02/2018 [facility] Respitory Rate 14 03/02/2018 [facility] Systolic (mm Hg) 184 03/02/2018 [facility] Diastolic (mm Hg) 72 03/02/2018 [facility] Respitory Rate 15 03/02/2018 [facility] Respitory Rate 16 03/02/2018 [facility] Systolic (mm Hg) 178 03/02/2018 [facility] Diastolic (mm Hg) 75 03/02/2018 [facility] Heart Rate 88 02/25/2018 [facility] Temperature Oral (F) 98.1 F 02/25/2018 [facility] Height 182.88 cm 02/25/2018 [facility] Weight 100 02/25/2018 [facility] BMI Calculated 29.9 02/25/2018 [facility] Encounters Location Location Encounter Encounter Reason Attending ADM DC Status Source Details Type Number For Provider Date Date Visit [id number] [facility] [id number] Nolan 03/06 03/06 [facility] Gerald /2017 [facility] Procedures Procedure Code Date Perfomer Comments Source Amputation of toe [id number] [facility] Procedure [id number] [facility]
[2018-06-12] MEDS ORDERED: ACETAMINOPHEN 325 MG TABLET ONE (23:30)
[2018-06-12] MEDS ORDERED: NA CHLORIDE 0.9% 250 ML ONE (23:30)
[2018-06-12 23:35] LABS: Absolute Lymphocytes (CBC) 0.7 K/uL (0.7-4.9); Basophils % 0.7 % (0-1.3); Eosinophils % 3.2 % (0-4.4); Hematocrit 28.7 % (39.6-49.0); Lymphocytes % 8.3 % (15.3-44.8); MCH 33.4 pg (27.0-35.0); MCV 97.4 fL (80-100); MPV 6.7 fL (7.6-11.3); Monocytes % 10.9 % (3.3-12.3); RBC Red Blood Cell Count 2.94 M/uL (4.33-5.43)
[2018-06-13 00:02] LABS: Albumin 2.7 g/dL (3.4-5.0); Bilirubin Direct 0.2 mg/dL (0-0.2); Bilirubin Total 0.4 mg/dL (0.2-1.0); Protein, Total 7.8 g/dL (6.4-8.2); Troponin (Emerg Dept Use Only) 0.09 ng/mL (0.0-0.045)
[2018-06-13] MEDS ORDERED: AZITHROMYCIN 500 MG/250 ML BAG ONE (00:36)
[2018-06-13] MEDS ORDERED: CEFTRIAXONE/SWI 1gm 1 GM/10 ML SYR ONE (00:36)
--- NOTE | 2018-06-13 00:38 | EDPHYS ---
Physician Documentation [facility] Name: Felipe Angelo Age: 67 yrs Sex: Male : 1950 Arrival Date: 06/12/2018 Time: 22:59 Bed 7 Private MD: ED Physician Russell Cannon HPI: 06/13 00:26 This 67 yrs old Male presents to ER via EMS with complaints of cough, rn Nausea/Vomiting, Fever. 00:27 The patient or guardian reports cough, flu symptoms. Onset: The symptoms/episode rn began/occurred this morning. Severity of symptoms: At their worst the symptoms were moderate, in the emergency department the symptoms are unchanged. Modifying factors: The symptoms are alleviated by nothing, the symptoms are aggravated by nothing. The patient has experienced similar episodes in the past. Reports chills, fever, generalized weakness, began this morning, + cough, denies abd pain. Reports feels similar to previous pneumonia. . Historical: - Allergies: 06/12 23:05 Tape; aa1 - Home Meds: 23:05 citalopram 20 mg tab 1 tab once daily [Active]; gabapentin 400 mg Oral cap daily aa1 [Active]; insulin detemir 50 unit nightly [Active]; Lasix 80 mg Oral tab 1 tab once daily [Active]; Lipitor 80 mg Oral tab 1 tab once daily [Active]; lisinopril 40 mg Oral tab 1 tab once daily [Active]; metoprolol tartrate 50 mg Oral tab 2 times per day [Active]; - PMHx: 23:05 Diabetes - IDDM; Hyperlipidemia; Hypertension; Renal Disease; Dialysis; aa1 - PSHx: 23:05 amputation R great toe; LUE fistula; aa1 - Immunization history:: Flu vaccine is not up to date. - Social history:: Smoking status: Patient uses tobacco products, smokes two packs cigarettes per day. - Ebola Screening: : Patient denies exposure to infectious person Patient denies travel to an Ebola-affected area in the 21 days before illness onset. - Family history:: not pertinent. - Hospitalizations: : No recent hospitalization is reported. ROS: 06/13 00:27 Constitutional: Negative for weight loss Eyes: Negative for injury, pain, redness, and tele rn, Neck: Negative for injury, pain, and swelling, Cardiovascular: Negative for chest pain, palpitations, and edema, Respiratory: + cough Abdomen/GI: Negative for abdominal pain, diarrhea, and constipation, MS/Extremity: Negative for injury and deformity, Skin: Negative for injury, rash, and discoloration, Neuro: Negative for headache, seizure. Exam: 00:27 Constitutional: This is a well developed, well nourished patient who is awake, alert, rn and in no acute distress. Head/Face: Normocephalic, atraumatic. Eyes: Pupils equal round and reactive to light, extra-ocular motions intact. Lids and lashes normal. Conjunctiva and sclera are non-icteric and not injected. Cornea within normal limits. Periorbital areas with no swelling, redness, or edema. ENT: dry MM Cardiovascular: tachycardic, regular, no murmur Respiratory: diminished breath sounds bilaterally, mild tachypnea Abdomen/GI: Soft, non-tender, with normal bowel sounds. No distension or tympany. No guarding or rebound. No evidence of tenderness throughout. Skin: Warm, dry, no evidence of cellulitis. MS/ Extremity: Pulses equal, no cyanosis. Neurovascular intact. Full, normal range of motion. Equal circumference. + thrill LUE fistula Neuro: Awake and alert, GCS 15, oriented to person, place, time, and situation. Cranial nerves II-XII grossly intact. Motor strength 4/5 in all extremities. Sensory grossly intact. Vital Signs: 06/12 23:05 BP 164 / 74; Pulse 107; Resp 20; Temp 101.8(O); Pulse Ox 97% on R/A; Weight 106.59 kg; aa1 Height 6 ft. 0 in. (182.88 cm); Pain 0/10; 06/13 00:10 BP 170 / 86; Pulse 105; Resp 20; Temp 100.2; Pulse Ox 99% on R/A; Pain 0/10; aa1 01:00 BP 162 / 80; Pulse 102; Resp 22; Pulse Ox 99% on R/A; Pain 0/10; aa1 02:00 BP 149 / 76; Pulse 86; Resp 20; Pulse Ox 99% on R/A; Pain 0/10; aa1 02:59 BP 150 / 74; Pulse 81; Resp 20; Temp 97.6; Pulse Ox 100% on R/A; Pain 0/10; aa1 06/12 23:05 Body Mass Index 31.87 (106.59 kg, 182.88 cm) aa1 MDM: 06/12 23:00 Patient medically screened. rn 06/13 00:35 Differential Diagnosis: Influenza Upper Respiratory Infection Viral Syndrome Pneumonia. rn Differential Diagnosis: Other sepsis, bacteremia. Data reviewed: vital signs, nurses notes. Counseling: I had a detailed discussion with the patient and/or guardian regarding: the historical points, exam findings, and any diagnostic results supporting the discharge/admit diagnosis, lab results, radiology results, the need for further work-up and treatment in the hospital. Response to treatment: the patient's symptoms have mildly improved after treatment, and as a result, I will admit patient. Admission orders: after a detailed discussion of the patient's condition and case, the admit orders are written by me. 06/12 23:10 Order name: Blood Culture Adult (2) rn 06/12 23:10 Order name: BMP; Complete Time: 00:10 06/12 23:10 Order name: CBC with Diff; Complete Time: 00:10 06/12 23:10 Order name: Hepatic Function; Complete Time: 00:10 06/12 23:10 Order name: Lipase; Complete Time: 00:10 06/12 23:10 Order name: NT PRO-BNP; Complete Time: 00:10 06/12 23:10 Order name: XRAY CXR (1 view) 06/12 23:10 Order name: Troponin (emerg Dept Use Only); Complete Time: 00:10 06/12 23:10 Order name: Procalcitonin; Complete Time: 00:10 06/12 23:10 Order name: Lactate; Complete Time: 00:10 06/12 23:10 Order name: Flu; Complete Time: 00:10 06/12 23:10 Order name: EKG; Complete Time: 23:11 rn 06/12 23:10 Order name: Cardiac monitoring; Complete Time: 23:21 rn 06/12 23:10 Order name: EKG - Nurse/Tech; Complete Time: 23:30 06/12 23:10 Order name: IV Saline Lock; Complete Time: 23: rn 06/12 23:10 Order name: Labs collected and sent; Complete Time: 23: rn 06/12 23:10 Order name: O2 Per Protocol; Complete Time: 23:21 rn 06/12 23:10 Order name: O2 Sat Monitoring; Complete Time: 23:21 rn Administered Medications: 06/12 23:29 Drug: NS 0.9% 250 ml Route: IV; Rate: 1 bolus; Site: right antecubital; aa1 06/13 00:13 Follow up: IV Status: Completed infusion aa1 06/12 23:29 Drug: Tylenol 650 mg Route: PO; aa1 06/13 00:13 Follow up: Response: No adverse reaction; Temperature is decreased aa1 00:28 CANCELLED (Other Intervention Used): Rocephin - (cefTRIAXone) 1 grams IVPB once over 30 aa1 mins; (mix in 50 mL NS) 00:31 Drug: Rocephin 1 grams Route: IV; Rate: calculated rate; Site: right antecubital; aa1 00:36 Drug: AZITHromycin 500 mg Route: IVPB; Infused Over: 1 hrs; Site: right antecubital; ao 01:09 Follow up: IV Status: Completed infusion aa1 01:09 Drug: Tylenol 325 mg Route: PO; aa1 01:10 Drug: Zofran 4 mg Route: IVP; Site: right antecubital; aa1 02:58 Follow up: Response: No adverse reaction; Nausea is decreased aa1 Disposition: 06/13/18 00:37 Hospitalization ordered by Rigo Cespedes for Inpatient Admission. Preliminary diagnosis are Pneumonia, End stage renal disease. - Bed requested for Telemetry/MedSurg (Inpatient). - Status is Inpatient Admission. aa1 - Condition is Stable. - Problem is new. - Symptoms have improved. UTI on Admission? No Signatures: Dispatcher [employer] Reva Vega RN RN kl Kern, Alissa, RN RN aa1 Russell Cannon MD MD rn Ortiz, Alex, RN RN ao Corrections: (The following items were deleted from the chart) 00:28 00:11 Rocephin - (cefTRIAXone) 1 grams IVPB once over 30 mins; (mix in 50 mL NS) aa1 ordered. rn 02:33 00:37 Hospitalization Ordered by Rigo Cespedes MD for Inpatient Admission. Preliminary kl diagnosis is Pneumonia; End stage renal disease. Bed requested for Telemetry/MedSurg (Inpatient). Status is Inpatient Admission. Condition is Stable. Problem is new. Symptoms have improved. UTI on Admission? No. rn 03:11 02:33 06/13/2018 00:37 Hospitalization Ordered by Riog Cespedes MD for Inpatient aa1 Admission. Preliminary diagnosis is Pneumonia; End stage renal disease. Bed requested for Telemetry/MedSurg (Inpatient). Status is Inpatient Admission. Condition is Stable. Problem is new. Symptoms have improved. UTI on Admission? No. kl
--- NOTE | 2018-06-13 00:38 | ER ---
Nurse's Notes [facility] Name: Felipe Angelo Age: 67 yrs Sex: Male : 1950 Arrival Date: 06/12/2018 Time: 22:59 Bed 7 Private MD: Diagnosis: Pneumonia;End stage renal disease Presentation: 06/12 22:59 Presenting complaint: Patient states: he was helping a friend work on his car this aa1 afternoon around 1300 and suddenly began to feel really tired. Reports getting into his car to drive home and was very nauseated and dizzy and vomited several times. Pt c/o fever as well but denies pain. States he had dialysis yesterday and he believes they removed 2.5 L fluid. Transition of care: patient was not received from another setting of care. Onset of symptoms was June 12, 2018 at 13:00. Risk Assessment: Do you want to hurt yourself or someone else? Patient reports no desire to harm self or others. Initial Sepsis Screen: Does the patient meet any 2 criteria? Temp <36.0*C (96.8*F)) or > 38.3*C (100.9*F). HR > 90 bpm. Does the patient have a suspected source of infection? No. Patient's initial sepsis screen is negative. Care prior to arrival: IV initiated. 22 GA, in the right hand, Glucose check: 254. 22:59 Method Of Arrival: EMS: [facility] aa1 22:59 Acuity: SINDHU 2 aa1 Historical: - Allergies: 23:05 Tape; aa1 - Home Meds: 23:05 citalopram 20 mg tab 1 tab once daily [Active]; gabapentin 400 mg Oral cap daily aa1 [Active]; insulin detemir 50 unit nightly [Active]; Lasix 80 mg Oral tab 1 tab once daily [Active]; Lipitor 80 mg Oral tab 1 tab once daily [Active]; lisinopril 40 mg Oral tab 1 tab once daily [Active]; metoprolol tartrate 50 mg Oral tab 2 times per day [Active]; - PMHx: 23:05 Diabetes - IDDM; Hyperlipidemia; Hypertension; Renal Disease; Dialysis; aa1 - PSHx: 23:05 amputation R great toe; LUE fistula; aa1 - Immunization history:: Flu vaccine is not up to date. - Social history:: Smoking status: Patient uses tobacco products, smokes two packs cigarettes per day. - Ebola Screening: : Patient denies exposure to infectious person Patient denies travel to an Ebola-affected area in the 21 days before illness onset. - Family history:: not pertinent. - Hospitalizations: : No recent hospitalization is reported. Screenin:06 Abuse screen: Denies threats or abuse. Denies injuries from another. Nutritional aa1 screening: No deficits noted. Tuberculosis screening: No symptoms or risk factors identified. Fall Risk None identified. Assessment: 23:06 General: Appears in no apparent distress. comfortable, unkempt, Behavior is calm, aa1 cooperative, appropriate for age. Pain: Denies pain. Neuro: Level of Consciousness is awake, alert, obeys commands, Oriented to person, place, time, situation, Moves all extremities. Speech is normal, Facial symmetry appears normal, Pupils are PERRLA. Cardiovascular: Heart tones S1 S2 present Rhythm is regular. Cardiovascular: Reports fatigue, lightheadedness, Denies chest pain, diaphoresis, palpitations, shortness of breath. Respiratory: Reports cough that is Airway is patent Respiratory effort is even, unlabored, Respiratory pattern is regular, symmetrical, Breath sounds are clear bilaterally. Denies shortness of breath labored breathing. GI: Abdomen is non-distended, Abd is soft and non tender X 4 quads. Reports nausea, vomiting. : No signs and/or symptoms were reported regarding the genitourinary system. EENT: No signs and/or symptoms were reported regarding the EENT system. Derm: Skin is intact, is healthy with good turgor, Skin is pink, warm \T\ dry. Musculoskeletal: Circulation, motion, and sensation intact. Capillary refill < 3 seconds. 06/13 00:00 Reassessment: Patient appears in no apparent distress at this time. Patient and/or aa1 family updated on plan of care and expected duration. Pain level reassessed. Patient is alert, oriented x 3, equal unlabored respirations, skin warm/dry/pink. Awaiting lab results. 01:30 Reassessment: Patient appears in no apparent distress at this time. Patient and/or aa1 family updated on plan of care and expected duration. Pain level reassessed. Patient is alert, oriented x 3, equal unlabored respirations, skin warm/dry/pink. Awaiting bed assignment for admission. 02:59 Reassessment: Patient appears in no apparent distress at this time. Patient and/or aa1 family updated on plan of care and expected duration. Pain level reassessed. Patient is alert, oriented x 3, equal unlabored respirations, skin warm/dry/pink. Pt back from CT at this time. Awaiting admission to 4th floor. 03:02 Reassessment: Report given to Xin on 4th floor. aa1 Vital Signs: 06/12 23:05 BP 164 / 74; Pulse 107; Resp 20; Temp 101.8(O); Pulse Ox 97% on R/A; Weight 106.59 kg; aa1 Height 6 ft. 0 in. (182.88 cm); Pain 0/10; 06/13 00:10 BP 170 / 86; Pulse 105; Resp 20; Temp 100.2; Pulse Ox 99% on R/A; Pain 0/10; aa1 01:00 BP 162 / 80; Pulse 102; Resp 22; Pulse Ox 99% on R/A; Pain 0/10; aa1 02:00 BP 149 / 76; Pulse 86; Resp 20; Pulse Ox 99% on R/A; Pain 0/10; aa1 02:59 BP 150 / 74; Pulse 81; Resp 20; Temp 97.6; Pulse Ox 100% on R/A; Pain 0/10; aa1 06/12 23:05 Body Mass Index 31.87 (106.59 kg, 182.88 cm) aa1 ED Course: 06/12 22:59 Patient arrived in ED. aa1 23:00 Russell Cannon MD is Attending Physician. rn 23:02 Triage completed. aa1 23:05 Arm band placed on right wrist. aa1 23:06 Patient has correct armband on for positive identification. Bed in low position. Call aa1 light in reach. personnel monitor on. Pulse ox on. NIBP on. Pillow given. 23:14 Initial lab(s) drawn, by ED staff, sent to lab. First set of blood cultures drawn by ED aa1 staff. Inserted saline lock: 20 gauge in right antecubital area, using aseptic technique. ,using aseptic technique. by Maxim Mcwilliams RN Blood collected. 23:20 Conchis Centeno RN is Primary Nurse. aa1 23:30 EKG done, by ED staff, reviewed by Rusesll Cannon MD. aa1 06/13 00:05 Notified primary nurse of Creatinine 7.5. kr2 00:07 X-ray completed. Portable x-ray completed in exam room. Patient tolerated procedure tm4 well. 00:11 XRAY CXR (1 view) In Process Unspecified. EDMS 00:37 Rigo Cespedes MD is Hospitalizing Provider. rn 01:20 Inserted saline lock: 22 gauge in right forearm, using aseptic technique. ao 02:[address] via stretcher. kw1 02:47 CT completed. Patient tolerated procedure well. Patient moved back from CT. kw1 03:04 No provider procedures requiring assistance completed. Patient admitted, IV remains in aa1 place. Administered Medications: 06/12 23:29 Drug: NS 0.9% 250 ml Route: IV; Rate: 1 bolus; Site: right antecubital; aa1 06/13 00:13 Follow up: IV Status: Completed infusion aa1 06/12 23:29 Drug: Tylenol 650 mg Route: PO; aa1 06/13 00:13 Follow up: Response: No adverse reaction; Temperature is decreased aa1 00:28 CANCELLED (Other Intervention Used): Rocephin - (cefTRIAXone) 1 grams IVPB once over 30 aa1 mins; (mix in 50 mL NS) 00:31 Drug: Rocephin 1 grams Route: IV; Rate: calculated rate; Site: right antecubital; aa1 00:36 Drug: AZITHromycin 500 mg Route: IVPB; Infused Over: 1 hrs; Site: right antecubital; ao 01:09 Follow up: IV Status: Completed infusion aa1 01:09 Drug: Tylenol 325 mg Route: PO; aa1 01:10 Drug: Zofran 4 mg Route: IVP; Site: right antecubital; aa1 02:58 Follow up: Response: No adverse reaction; Nausea is decreased aa1 Outcome: 00:37 Decision to Hospitalize by Provider. rn 03:10 Admitted to Med/surg accompanied by wolfgang, via stretcher, room 403, with chart, Report aa1 called to Xin 03:10 Condition: stable 03:10 Instructed on the need for admit, Demonstrated understanding of instructions. 03:11 Patient left the ED. aa1 Signatures: Dispatcher [employer] EDZamzam Mcintyrea, JACIEL RN aa1 Angelika Cox tm4 Russell Cannon MD MD rn Ortiz, Alex, RN RN ao Barb Moser RN RN kr2 Reva Borges kw1
[2018-06-13] MEDS ORDERED: ONDANSETRON 4 MG/2 ML VIAL ONE (01:13)
[2018-06-13] MEDS ORDERED: ACETAMINOPHEN 325 MG TABLET ONE (01:13)
[2018-06-13] MEDS ORDERED: ALBUTEROL 2.5 MG/3 ML NEB SOL NEB PRN (04:05)
[2018-06-13] MEDS ORDERED: IPRATROPIUM BROM 0.5MG/2.5ML NEB PRN (04:05)
[2018-06-13] MEDS ORDERED: ACETAMINOPHEN 500 MG TAB PO PRN (04:05)
[2018-06-13] MEDS ORDERED: ONDANSETRON 4 MG/2 ML VIAL IV PRN (04:05)
[2018-06-13] MEDS ORDERED: VANCOMYCIN 1 GM in NA CHLORIDE 0.9% 500 ML IVPB ONE (05:37)
--- NOTE | 2018-06-13 05:45 | P.HP ---
Certification for Inpatient Patient admitted to: Inpatient With expected LOS: >2 Midnights Practitioner: I am a practitioner with admitting privileges, knowledge of patient current condition, hospital course, and medical plan of care. Services: Services provided to patient in accordance with Admission requirements found in Title 42 Section 412.3 of the Code of Federal Regulations Patient History Date of Service: 06/13/18 Reason for admission: Sepsis History of Present Illness: Mr Angelo a 67-year-old male with history of insulin-dependent diabetes mellitus , ESRD on HD, hypertension who came to the ER complaining of weakness associated with fever, nausea and vomiting. He symptoms started yesterday and noon. He denied any chest pain, shortness of breath, abdominal pain or diarrhea. The patient is a smoker, he stated that has chronic cough without change in intensity or sputum color. At arrival the patient was febrile 101.8 F. lab work is remarkable for normal WBC count, normal lactate and elevated procalcitonin. Allergies surgical tape Allergy (Uncoded 06/13/18 03:40) Rash Home medications list reviewed: Yes Home Medications: Furosemide [Lasix] 80 mg PO BID 12/02/17 Hydralazine HCl [Apresoline] 100 mg PO QID 12/02/17 Insulin Detemir [Levemir*] 40 unit SQ BEDTIME 12/02/17 Metoprolol Tartrate 50 mg PO BID 12/02/17 Multivitamin [Multiple Vitamins] 1 tab PO DAILY 12/02/17 Calcium Carbonate [Tums] 2 tab PO TIDWM 06/13/18 Cyclobenzaprine [Flexeril*] 1 tab PO Q8HR PRN 06/13/18 Gabapentin 1 cap PO BEDTIME 06/13/18 Tramadol HCl [Ultram] 1 tab PO QID PRN 06/13/18 - Past Medical/Surgical History Has patient received pneumonia vaccine in the past: No Diabetic: Yes -: Diabetes -: HTN -: Neuropathy -: CRD -: PVD -: Iron deficiency anemia -: Malnutrition -: Chronic kidney disease stage 5 -: Right great toe amputation (2018) - Family History Mother -: Hypertension, Cancer Notes: Throat cancer, HTN Father -: Hypertension, Other (see notes) Notes: CHF Brother -: Cancer Notes: Colon Cancer - Social History Smoking Status: Current every day smoker Counseled patient to stop smoking for: less than 10 minutes Alcohol use: No CD- Drugs: No Caffeine use: Yes Place of Residence: Home Review of Systems 10-point ROS is otherwise unremarkable Physical Examination - Vital Signs Temperature: 97.8 F Blood Pressure: 154/83 Pulse: 76 Respirations: 18 Pulse Ox (%): 98 - Physical Exam General: Alert, In no apparent distress HEENT: Atraumatic, PERRLA, Mucous membr. moist/pink, EOMI, Sclerae nonicteric Neck: Supple, 2+ carotid pulse no bruit, No LAD, Without JVD or thyroid abnormality Respiratory: Clear to auscultation bilaterally, Normal air movement Cardiovascular: Regular rate/rhythm, Normal S1 S2 Gastrointestinal: Normal bowel sounds, No tenderness Musculoskeletal: No tenderness Integumentary: No rashes Neurological: Normal speech, Normal strength at 5/5 x4 extr, Normal tone, Normal affect Lymphatics: No axilla or inguinal lymphadenopathy - Studies Laboratory Data (last 24 hrs) 06/12/18 23:14: WBC 9.0, Hgb 9.8 L, Hct 28.7 L, Plt Count 244 06/12/18 23:14: Sodium 130 L, Potassium 4.0, BUN 37 H, Creatinine 7.50 H*, Glucose 184 H, Total Bilirubin 0.4, AST 23, ALT 21, Alkaline Phosphatase 108, Lipase 371 Microbiology Data (last 24 hrs): 06/12/18 23:16 Nasopharnyx Influenza Type A Antigen Screen - Final 06/12/18 23:16 Nasopharnyx Influenza Type B Antigen Screen - Final Assessment and Plan - Problems (Diagnosis) (1) ESRD (end stage renal disease) on dialysis Current Visit: Yes Status: Acute (2) Coronary artery disease Onset Date: 12/02/17 Current Visit: No Status: Chronic Qualifiers: Coronary Disease-Associated Artery/Lesion type: unspecified vessel or lesion type [place] vs. transplanted heart: unspecified whether [place] or transplanted heart Associated angina: angina presence unspecified Qualified Code(s): I25.10 - Atherosclerotic heart disease of [place] coronary artery without angina pectoris (3) Diabetes mellitus Onset Date: 12/02/17 Current Visit: No Status: Chronic Qualifiers: Diabetes mellitus type: type 2 Diabetes mellitus want ad receiver insulin use: with fdc use Diabetes mellitus complication status: with skin complications Diabetes mellitus complication detail: with foot ulcer Qualified Code(s): E11.621 - Type 2 diabetes mellitus with foot ulcer; L97.509 - Non-pressure chronic ulcer of other part of unspecified foot with unspecified severity; 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 (4) HTN (hypertension) Onset Date: 12/02/17 Current Visit: No Status: Chronic Qualifiers: Hypertension type: essential hypertension Qualified Code(s): I10 - Essential (primary) hypertension (5) Nausea and vomiting Current Visit: No Status: Resolved Qualifiers: Vomiting type: unspecified Vomiting Intractability: unspecified Qualified Code(s): R11.2 - Nausea with vomiting, unspecified (6) Sepsis Onset Date: 01/05/17 Current Visit: No Status: Resolved Qualifiers: Sepsis type: sepsis due to unspecified organism Qualified Code(s): A41.9 - Sepsis, unspecified organism (7) Tobacco abuse Onset Date: 12/02/17 Current Visit: No Status: Resolved - Plan The patient will be admitted to the hospital due to sepsis. Chest-x-ray shows questionable bibasilar infiltrate, however farther CT scan of the chest showed no acute infiltrate but a small right loculated pleural effusion which is not drainable. Influenza screen is negative. The patient is still making some urine, UA is ordered but not done yet. At this point there is no clear source of infection, consider to remove tunneled cath. Will discuss with whipped topping finisher. Will order empiric broad-spectrum antibiotic treatment. Blood cultures in process. - Advance Directives Does patient have a Living Will: Yes Does patient have a Durable POA for Healthcare: No - Code Status/Comfort Care Code Status Assessed: Yes Code Status: Full Code
[2018-06-13] MEDS ORDERED: PIPER/TAZO/NS 2.25gm 2.25 GM/50 ML BAG IVPB SCH (06:00)
[2018-06-13] MEDS ORDERED: VANCOMYCIN 1 GM/VIAL ONE (06:07)
[2018-06-13] MEDS ORDERED: PIPER/TAZO/NS 2.25gm 2.25 GM/50 ML BAG ONE (06:08)
[2018-06-13] MEDS ORDERED: NA CHLORIDE 0.9% 500 ML ONE (06:08)
[2018-06-13 06:44] LABS: Absolute Lymphocytes (CBC) 1.4 K/uL (0.7-4.9); Absolute Neutrophil 6.5 K/uL (1.8-8.0); Basophils % 0.6 % (0-1.3); Eosinophils % 1.4 % (0-4.4); Hematocrit 27.7 % (39.6-49.0); Lymphocytes % 15.3 % (15.3-44.8); MCH 33.4 pg (27.0-35.0); MCV 96.3 fL (80-100); MPV 6.7 fL (7.6-11.3); Monocytes % 11.5 % (3.3-12.3); RBC Red Blood Cell Count 2.87 M/uL (4.33-5.43)
[2018-06-13 07:02] LABS: Potassium 4.3 mmol/L (3.5-5.1)
[2018-06-13 07:29] LABS: Urine Appearance CLEAR; Urine Bilirubin NEGATIVE (NEG); Urine Blood 1+ (NEG); Urine Color YELLOW; Urine Glucose 2+ (NEG); Urine Protein 3+ (NEG); Urine Urobilinogen 0.2 mg/dL (0.2-1.0)
[2018-06-13] MEDS: INSULIN -REGULAR HUMAN 50 UNIT/0.5 ML ML SQ SCH ×4 (07:30→20:44)
[2018-06-13 07:31] LABS: Urine Microscopic Reflex ORDER UMIC
[2018-06-13 07:44] LABS: Urine Bacteria NONE SEEN /HPF (NONE SEEN); Urine Culture Reflex Order NOT NEEDED; Urine Mucus SLIGHT /HPF (NONE SEEN); Urine RBC NONE SEEN /HPF (NONE SEEN)
[2018-06-13] MEDS: PIPER/TAZO/NS 2.25gm 2.25 GM/50 ML BAG IVPB SCH ×2 (08:41→16:30)
[2018-06-13] MEDS ORDERED: CEFTRIAXONE 1 GM/NS 50 ML 1 GM/50 ML BAG IV SCH (09:00)
[2018-06-13] MEDS ORDERED: AZITHROMYCIN IV 500 MG in NA CHLORIDE 0.9% 250 ML IVPB SCH (09:00)
--- NOTE | 2018-06-13 09:12 | RAD REPORT ---
EXAM DESCRIPTION: CT - Thorax Wo Con - 06/13/2018 4:02 am CLINICAL HISTORY: Pneumonia, shortness of breath, weakness A preliminary report was provided at the time of the study and reviewed prior to final report. COMPARISON: Chest exam June 20, CT chest November 2017 TECHNIQUE: Axial 5 mm thick images of the chest were obtained without IV contrast. All CT scans are performed using dose optimization technique as appropriate and may include automated exposure control or mA/KV adjustment according to patient size. FINDINGS: No mass or focal consolidation in the lung parenchyma. Lung base interstitial markings are mildly prominent but not definitive for interstitial pneumonia or significant interstitial edema. Th e large pleural effusions and atelectasis changes seen in November have fully resolved on the left. Ther e is a minimal rim of pleural thickening and pleural fluid on the right. This is potentially loculate d but is a non drainable small fluid collection. Maximum thickness of the fluid is 13 mm. No pleural based mass. No pneumothorax. No abnormal mediastinal or hilar masses or lymphadenopathy seen. Cardiomegaly is present without liya cardial effusion. Assessment is limited in the absence of IV contrast. No chest wall mass or abnormal axillary lymphadenopathy. IMPRESSION: No focal consolidation to suspect bacterial pneumonia. Minimal prominence of the interst itium in each lung base not convincing for acute edema or acute infectious infiltrate. Complete left-side and near complete right-sided resolution of the large pleural effusions and atelec tasis seen in November. Patient has a small remnant pleural effusion on the right that may be loculated. This is not drainabl e at maximum 13 mm thickness.
[2018-06-13] MEDS ORDERED: CYCLOBENZAPRINE 10 MG TAB PO PRN (10:51)
[2018-06-13] MEDS ORDERED: TRAMADOL HCL 50 MG TAB PO PRN (10:51)
[2018-06-13] MEDS ORDERED: EPOETIN ALFA 10,000 UNIT/ML VIAL IV SCH (11:15)
--- NOTE | 2018-06-13 12:18 | RAD REPORT ---
EXAM DESCRIPTION: RAD - Chest Single View - 06/13/2018 12:11 am CLINICAL HISTORY: Cough, dyspnea COMPARISON: November 2017 TECHNIQUE: AP portable chest image was obtained 2349 hours . FINDINGS: No peripheral mass or consolidation seen. Pleural and parenchymal opacification are presen t in the right base but less pronounced than seen previously. Dialysis catheter is in place. Cardiome yossi is present but less pronounced than prior imaging. Vasculature has diminished in prominence. No large pleural effusion. Right costophrenic angle blunting. No acute bony abnormality seen. No acute a ortic findings suspected. IMPRESSION: Minimal right base pleural and parenchymal opacification are present. Patient has previously had right lung base findings. Current presentation could be remnant of prior p rocess or minimal infiltrate and effusion. Cardiomegaly is present without additional findings of sig nificant failure or volume overload.
[2018-06-13] MEDS: HYDRALAZINE HCL 25 MG TABLET PO SCH ×3 (12:37→20:39)
[2018-06-13] MEDS ORDERED: HOME MED 1 EA UNK (Hydralazine Hcl [Apresoline] 100 MG) PO SCH (13:00)
--- NOTE | 2018-06-13 14:51 | CON ---
Date of Consultation: 06/13/2018 Reason For Consultation: Elevated BUN and creatinine, acidosis, electrolyte imbalance, end-stage chad al disease. History Of Present Illness: This is a pleasant, 67-year-old gentleman, known to me from the dialysis with significant past medical history of end-stage renal disease, on hemodialysis, Thursday, Thursday , Thursday at [facility] through left arm AV fistula. He used to have PermCath, st ill currently not in use, diabetes complicated with neuropathy and nephropathy, hyperlipidemia, perip heral vascular disease, status post right big toe amputation, the patient came to the hospital compla ining that he fell down, felt weak after long day of working. The patient is complaining of some cou gh and shortness of breath with subjective fever. In the hospital shows possible infiltration on the CT, for that reason, the patient was admitted with the presumption of pneumonia. Culture is still p ending. Lab showed that the patient had electrolyte abnormality with anemia. The patient is slightl y on the wet side with hyponatremia for that reason, we have been consulted. Past Medical History: Include, 1.Diabetes complicated with neuropathy and nephropathy. 2.Hypertension. 3.Peripheral vascular disease, status post big toe amputation. 4.Hyperlipidemia. 5.End-stage renal disease, on hemodialysis; Thursday, Thursday, and Thursday. Social History: Ex-smoker. Denied alcohol. Denied drug abuse. Family History: Positive for diabetes. Past Surgical History: Includes, AV fistula creation, left AV fistula; PermCath placement and righ t big toe amputation. Home Medications: Include, 1.Tramadol. 2.Multivitamin. 3.Metoprolol 50 b.i.d. 4.Insulin. 5.Hydralazine 100 q.i.d. 6.Gabapentin. 7.Lasix 80 b.i.d. 8.Calcium carbonate. Current Medications: In the hospital include, Neurontin, insulin, metoprolol, Zosyn, and tramadol. Review of Systems: Head and Neck: No red eye. No ear pain. GI: No nausea. No vomiting. : No polyuria. No dysur ia. No hematuria. 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 Respiratory: Has shortness of breath. Has cough. Cardiova scular: No chest pain. Endocrine: No polydipsia. Skin: No rash. Neuro: Has loss of consciousne ss and fall. Musculoskeletal: Generalized fatigue. Physical Examination: Vital Signs: When I saw the patient, blood pressure of 162/77, pulse of 71, afebrile. Chest: Faint crackles at bilateral base. Heart: S1, S2. Regular. Abdomen: Soft, nontender. Extremity: No e marissa. Neurologic: Alert, oriented x3. No focal. Vascular: Left AV fistula good thrill. Mature e nough been unused. Right IJ PermCath. Laboratory Data: WBC 9.1, H and H 9.6/27.7, platelets of 257. Sodium 132, potassium 4.3, bicarb 26, BUN 39, creatinine 7.5, calcium 8. C-reactive protein 88, proc alcitonin 1.01, slightly elevated. Assessment And Plan: 1.End-stage renal disease. We will arrange for the patient to have dialysis tomorrow. We are going to be dialyzed on high sodium bath to correct the sodium and low potassium bath, and we will follow up the patient. 2.We will use the AV fistula, and we will challenge the patient to establish better volume control. 3.Hypertension, controlled, not optimal. We will follow up blood pressure after dialysis tomorrow. 4.Hyponatremia, asymptomatic, going to be corrected on dialysis tomorrow. 5.Anemia of chronic kidney disease. Resume Epogen. 6.Secondary hyperparathyroidism, resume Tums. 7.Pneumonia. The patient is already on antibiotic. We will follow up culture, follow up with the primary, if dose appropriate. 8.Diabetes as by primary. SHAWN/MATEUSZ Voice ID: [id number] Report ID: [id number]
--- NOTE | 2018-06-13 16:06 | PN ---
Date of Progress Note: 06/13/2018 Code Status: Full. Subjective: The patient is seen and examined, chart reviewed, and case discussed with RN as well as Dr. Cadet and Dr. Rand. The patient states he is doing significantly better than yesterday. Review of Systems: Negative except as above. Medications: List reviewed. Objective: Vital Signs: Temperature 98, heart rate 71, blood pressure 162/77, respirations 20, O2 9 6% on room air. General: Awake, alert, oriented x3. Elderly male, somewhat ill-appearing, obese. CV: S1, S2. No murmurs. Peripheral pulses present. Respiratory: Somewhat diminished breath sounds at the bases. No wheezing or crackles. No use of ac cessory muscles. Gastrointestinal: Abdomen is soft, obese, nontender, nondistended. Positive bowel sounds. Extremities: No clubbing, cyanosis, or edema. Neuro: Cranial nerves 2 through 12 intact grossly. No focal neurological deficit. Speech is normal . Laboratory Data: Sodium 132, potassium 4.3, chloride 95, CO2 26, BUN 39, creatinine 7.5, glucose 165 , calcium 8. CRP 88. Procalcitonin 1. Lactate 1.9. WBC 9.1, H and H 9.6 and 27.7, platelets 257, neutrophils 71%. Influenza screen negative. Blood cultures pending. Assessment: A 67-year-old male with: 1.Sepsis secondary to pneumonia. 2.Pneumonia. Chest x-ray does show bibasilar infiltrates. CT scan did show pleural effusion that i s not drainable as well as minimal prominence of the interstitium in each lung base, however, not con vincing for acute edema or acute infectious infiltrate. 3.Loculated right-sided pleural effusion, not amenable for drainage. 4.Intractable nausea and vomiting, improved. 5.Essential hypertension. Resume home medications as appropriate. 6.Diabetes mellitus type 2 with long-term use of insulin with skin complications and foot ulcer. 7.Coronary artery disease, [place] artery and [place] heart without angina. 8.End-stage renal disease, on dialysis. The patient has a mature graft and Dr. Cadet has been co nsulted. The patient's next dialysis day is tomorrow. 9.Peripheral vascular disease. 10.Neuropathy. 11.Iron deficiency anemia, likely anemia of chronic disease due to chronic kidney disease. 12.Gastrointestinal and deep venous thrombosis prophylaxis addressed. Plan: Consult Dr. Rand to remove tunneled catheter. The patient was scheduled to have catheter rem candido on Thursday. The patient's AV graft is now matured and is being used for dialysis. We will cult ure tip to rule out a source of infection. Continue IV antibiotics. We will follow up on cultures. Resume home medications as appropriate. Monitor Accu-Cheks. Continue sliding scale insulin and res ume home dose of long-acting insulin. We will add Lovenox renally dosed for DVT prophylaxis. SA/MODL Voice ID: [id number] Report ID: [id number]
[2018-06-13] MEDS: ENOXAPARIN 30 MG/0.3 ML SQ SCH (16:31)
[2018-06-13] MEDS ORDERED: PNEUMOCOCCAL VACCINE 0.5 ML IMVAC ONE (17:00)
--- NOTE | 2018-06-13 17:34 | EKG ---
Test Date: 2018-06-12 Test Time: 23:25:55 House Supervisor: KACIE MEASUREMENT RESULTS: Intervals: Rate: 109 OH: 174 QRSD: 104 QT: 354 QTc: 476 Jackson: P: 114 OH: 174 QRS: 21 T: 7 INTERPRETIVE STATEMENTS: Sinus tachycardia with premature atrial complexes Inferior infarct, age undetermined Cannot rule out Anterior infarct, age undetermined Abnormal ECG Compared to ECG 12/01/2017 20:03:34 Atrial premature complex(es) now present Myocardial infarct finding now present Sinus rhythm no longer present Left ventricular hypertrophy no longer present Prolonged QT interval no longer present Electronically Signed On 06-13-18 17:33:23 CDT by Josh Oliva
[2018-06-13] MEDS: GABAPENTIN 300 MG CAP PO SCH (20:39)
[2018-06-13] MEDS: METOPROLOL TAR 50 MG TAB PO SCH (20:39)
[2018-06-13] MEDS: INSULIN GLARGINE 100 UNITS/ML SQ SCH (20:46)
[2018-06-13] MEDS ORDERED: INSULIN DETEMIR 40 UNIT SQ SCH (21:00)
[2018-06-14] MEDS: PIPER/TAZO/NS 2.25gm 2.25 GM/50 ML BAG IVPB SCH ×3 (01:11→17:33)
[2018-06-14 05:27] VITALS: BMI 32.9
[2018-06-14 06:01] LABS: Absolute Lymphocytes (CBC) 1.1 K/uL (0.7-4.9); Absolute Neutrophil 4.5 K/uL (1.8-8.0); Basophils % 0.6 % (0-1.3); Eosinophils % 6.4 % (0-4.4); Hematocrit 27.9 % (39.6-49.0); Lymphocytes % 15.6 % (15.3-44.8); MCH 33.6 pg (27.0-35.0); MCV 97.2 fL (80-100); MPV 6.6 fL (7.6-11.3); Monocytes % 13.9 % (3.3-12.3); RBC Red Blood Cell Count 2.87 M/uL (4.33-5.43)
[2018-06-14 06:24] LABS: Potassium 4.3 mmol/L (3.5-5.1)
[2018-06-14] MEDS ORDERED: CEFAZOLIN/SWI 1gm 1 GM/10 ML SYR IVP SCH (07:00)
[2018-06-14] MEDS: INSULIN -REGULAR HUMAN 50 UNIT/0.5 ML ML SQ SCH ×4 (07:30→20:49)
[2018-06-14] MEDS ORDERED: NA CHLORIDE 0.9% 1,000 ML IV PRN (08:57)
[2018-06-14] MEDS: HYDRALAZINE HCL 25 MG TABLET PO SCH ×4 (09:00→20:48)
[2018-06-14] MEDS: METOPROLOL TAR 50 MG TAB PO SCH ×2 (09:00→20:48)
[2018-06-14] MEDS ORDERED: ALBUMIN HUMAN 25% 50 ML IV SCH (09:00)
--- NOTE | 2018-06-14 16:49 | CON ---
Date of Consultation: 06/13/2018 Reason: The patient needs his Tesio removed. History Of Present Illness: The patient is a 67-year-old gentleman with multiple medical problems, w heath came in with fever, nausea, and vomiting that started on Thursday. He was admitted on Thursday [facility]. He does have a cough, and since he has been admitted, he was found to have a fistula, which is working in his left arm. He has a Tesio catheter on the right side, and I was asked to remove this a s this could possibly be the etiology for his fever. Based on the symptomology, it could be early pn eumonia or even the flu, however, as he does not need the Tesio any more, I was consulted. He is zaida ke, alert, on dialysis currently. Denies any current fever or chills. Review of Systems: Otherwise unremarkable. Past Medical History: Significant for diabetes, hypertension, end-stage renal disease, and neuropath y. Past Surgical History: Right great toe amputation. Allergies: SURGICAL TAPE. Social History: He does smoke, has been counseled. Does not drink. Family History: Significant for hypertension and throat cancer in the mother, hypertension in the fa ther, colon cancer in the brother. Physical Examination: VITAL SIGNS: Currently, stable. He is afebrile. General: He is awake, alert, and oriented x3. Head and Neck: No masses. Chest: Clear. Heart: S1, S2. Abdomen: Soft. Extremities: Neurovascularly intact. Neuro: Nonfocal. Laboratory Data: White count is 7.1. Urine reviewed, does not appear to be infected. CT of the [place] st shows minimal prominence of the interstitium in each lung base, not convincing for acute edema or acute infectious infiltrate. Assessment: A 67-year-old gentleman with multiple medical problems, possible sepsis, although his la ctate is negative and white count is normal. His blood culture is also negative, so the source of fe catracho could be either the flu, pneumonia, or even the Tesio catheter. As he does not need it, we will remove it. There is no urgency as the patient is not in septic shock or sepsis right now, so tomorro w we will remove it. The patient understands the risks, benefits, and alternatives and agrees to pro cedure. /MODL Voice ID: [id number] Report ID: [id number]
[2018-06-14] MEDS: ENOXAPARIN 30 MG/0.3 ML SQ SCH (17:31)
--- NOTE | 2018-06-14 19:25 | PN ---
Date of Progress Note: 06/14/2018 Subjective: The patient is seen and examined, chart reviewed, and case discussed with RN and Dr. Tony mancuso. The patient went for dialysis today, doing well to dialysis timing. The patient was unable to h ave his hemodialysis catheter removed today. Review of Systems: Negative except as above. Medications: List reviewed. Objective: Vital Signs: Temperature 98.3, heart rate 82, blood pressure 150/76, respirations 18, O2 98% on room air. General: Awake, alert, oriented x3, not in acute distress. Elderly male, obese. CV: S1, S2. Regular rate and rhythm. Peripheral pulses present. No murmurs. Respiratory: Moving air well bilaterally. No wheezing or stridor. Gastrointestinal: Abdomen is soft, nontender, nondistended. Positive bowel sounds. Extremities: No clubbing, cyanosis, or edema. Neurologic: Nonfocal. Laboratory Data: Sodium 133, potassium 4.3, chloride 97, CO2 24, BUN 49, creatinine 8.8, glucose 116 , calcium 7.8. WBC 7.1, H and H 9.6 and 27.9, platelets 236, neutrophils 63%. Blood cultures no [facility] to date. Assessment And Plan: A 67-year-old male with: 1.Sepsis secondary to pneumonia, resolving, significantly improved. Cultures negative. Continue IV antibiotics. 2.Pneumonia, bibasilar infiltrates, and pleural effusion also present. Clinically, the patient has symptoms, however, significantly improved. 3.Loculated right-sided pleural effusion, not amenable for drainage. Continue to monitor. 4.Intractable nausea and vomiting, resolved. 5.Essential hypertension, stable on home medications. 6.End-stage renal disease, on dialysis. The patient has AV graft for dialysis and scheduled for leonor neled catheter removal by Dr. Rand in a.m. Keep n.p.o. after midnight. 7.Diabetes mellitus type 2 with long-term use of insulin with skin complications and foot ulcer. 8.Coronary artery disease, yocha dehe artery and yocha dehe heart without angina. 9.Peripheral vascular disease. 10.Neuropathy. 11.Iron deficiency anemia along with anemia of chronic disease secondary to chronic kidney disease. We will monitor H and H and transfuse as needed. 12.Gastrointestinal and deep venous thrombosis prophylaxis addressed. The patient is on Lovenox chad ally dosed. We will hold dose after tonight for the procedure in a.m. 13.Plan likely discharge in a.m. after catheter removal. /MATEUSZ Voice ID: [id number] Report ID: [id number]
[2018-06-14] MEDS: GABAPENTIN 300 MG CAP PO SCH (20:47)
[2018-06-14] MEDS: INSULIN GLARGINE 100 UNITS/ML SQ SCH (20:49)
[2018-06-15] MEDS: PIPER/TAZO/NS 2.25gm 2.25 GM/50 ML BAG IVPB SCH ×2 (00:40→08:33)
--- NOTE | 2018-06-15 03:05 | PN ---
Date of Progress Note: 06/14/2018 Chief Complaint: End-stage renal disease, on dialysis. History Of Present Illness: The patient presented to the hospital after he sustained a fall. He has history of end-stage renal disease and has been treated with dialysis 3 times per week. He develope d end-stage renal disease due to diabetes and hypertension. Review of Systems: Constitutional: Denies fever, chills. Cardiac: Denies chest pain, palpitation. GI: Denies nausea, vomiting. Physical Examination: Lungs: Clear to auscultation bilaterally. Heart: S1, S2. Abdomen: Soft, benign. Extremities: Slight edema. Impression And Plan: 1.End-stage renal disease, status post fall. The patient is undergoing workup with primary team. 2.Anemia of chronic kidney disease. Hemoglobin level stable. Monitor hemoglobin level. Resume MARIANELA . 3.Renal osteodystrophy. Continue renal diet and binders. 4.Mild fluid overload, peripheral edema. Continue low-sodium diet, p.o. fluid restriction. WESTON/MATEUSZ Voice ID: [id number] Report ID: [id number]
[2018-06-15] MEDS: INSULIN -REGULAR HUMAN 50 UNIT/0.5 ML ML SQ SCH ×2 (07:30→11:30)
[2018-06-15] MEDS: METOPROLOL TAR 50 MG TAB PO SCH (08:33)
[2018-06-15] MEDS: HYDRALAZINE HCL 25 MG TABLET PO SCH ×2 (08:34→13:48)
[2018-06-15] MEDS ORDERED: NA CHLORIDE 0.9% 500 ML ONE (10:23)
[2018-06-15] MEDS ORDERED: CEFAZOLIN/SWI 1gm 1 GM/10 ML SYR ONE (10:23)
[2018-06-15] MEDS ORDERED: PROPOFOL 200 MG/20 ML VIAL IV ONE (10:47)
[2018-06-15] MEDS ORDERED: MIDAZOLAM HCL 2 MG/2 ML INJ ONE (10:48)
[2018-06-15] MEDS ORDERED: FENTANYL CITR 100 MCG/2 ML ONE (10:48)
[2018-06-15] MEDS ORDERED: LIDOCAINE 2% MPF 5 ML VIAL ONE (10:49)
--- NOTE | 2018-06-15 11:13 | P.OP ---
Preoperative diagnosis: Sepsis, ESRD Postoperative diagnosis: same Primary procedure: Removal Right Chest Tesio Catheter Anesthesia: MAC Estimated blood loss: min Specimen: Catheter tip c&s Findings: as above Complications: None Transferred to: Recovery Room Condition: Good
[2018-06-15 13:21] VITALS: O2SAT 99
[2018-06-15 13:34] VITALS: BP 132/63; TEMP 97.6
--- NOTE | 2018-06-15 17:19 | P.DS ---
Admission Date: 06/13/18 Discharge Date: 06/15/18 Disposition: ROUTINE DISCHARGE Discharge Condition: GOOD Reason for Admission: Sepsis Consultations: Dr. Rand, General surgery Dr. Cadet, Nephrology Procedures: Tunneled cathether removal: 06/15/2018 Brief History of Present Illness: Mr Angelo a 67-year-old male with history of insulin-dependent diabetes mellitus , ESRD on HD, hypertension who came to the ER complaining of weakness associated with fever, nausea and vomiting. He symptoms started yesterday and noon. He denied any chest pain, shortness of breath, abdominal pain or diarrhea. The patient is a smoker, he stated that has chronic cough without change in intensity or sputum color. At arrival the patient was febrile 101.8 F. lab work is remarkable for normal WBC count, normal lactate and elevated procalcitonin. Hospital Course: Patient was admitted for sepsis. Chest x-ray with questionable bibasilar infiltrate however CT scan of the chest with no acute infiltrate the small right loculated pleural effusion, which is not drainable. His flu screen was negative. Upon admission, there is no clear source of the infection but patient did have a tunnel cath which could be the source of infection. Blood cultures were drawn, and he was started on broad-spectrum IV antibiotics. Cultures remained negative throughout the stay. IV antibiotics were discontinued. Pneumonia, bibasilar infiltrates with pleural effusion that was not drainable. Patient received IV antibiotics with clinical with symptomatic improvement. For his essential hypertension, he was stable on home medications. End-stage renal disease, on dialysis: Patient did have an AV graft for dialysis at the time of catheter was removed he has this could have been the source of infection. Diabetes mellitus type 2 with foot ulcer: He remained stable on sliding scale insulin. At the time of discharge she was switched back to home medications. Vital Signs/Physical Exam: Temp Pulse Resp BP Pulse Ox 97.6 F 65 18 132/63 99 06/15/18 12:00 06/15/18 12:00 06/15/18 12:00 06/15/18 12:00 06/15/18 12:00 General: Alert, In no apparent distress HEENT: Atraumatic, PERRLA, EOMI Neck: Supple, JVD not distended Respiratory: Clear to auscultation bilaterally, Normal air movement Cardiovascular: Regular rate/rhythm, Normal S1 S2 Gastrointestinal: Normal bowel sounds, No tenderness Musculoskeletal: No tenderness Integumentary: No rashes Neurological: Normal speech, Normal tone, Normal affect Lymphatics: No axilla or inguinal lymphadenopathy Laboratory Data at Discharge: WBC 7.1 K/uL (4.3-10.9) D 06/14/18 05:32 Hgb 9.6 g/dL (13.6-17.9) L 06/14/18 05:32 Hct 27.9 % (39.6-49.0) L 06/14/18 05:32 Plt Count 236 K/uL (152-406) 06/14/18 05:32 Sodium 133 mmol/L (136-145) L 06/14/18 05:32 Potassium 4.3 mmol/L (3.5-5.1) 06/14/18 05:32 BUN 49 mg/dL (7-18) H 06/14/18 05:32 Creatinine 8.80 mg/dL (0.55-1.3) H* D 06/14/18 05:32 Glucose 116 mg/dL (74-106) H 06/14/18 05:32 Total Bilirubin 0.4 mg/dL (0.2-1.0) 06/12/18 23:14 AST 23 U/L (15-37) 06/12/18 23:14 ALT 21 U/L (12-78) 06/12/18 23:14 Alkaline Phosphatase 108 U/L (45-117) 06/12/18 23:14 Lipase 371 U/L (73-393) 06/12/18 23:14 Home Medications: Furosemide [Lasix] 80 mg PO BID 12/02/17 Hydralazine HCl [Apresoline] 100 mg PO QID 12/02/17 Insulin Detemir [Levemir*] 40 unit SQ BEDTIME 12/02/17 Metoprolol Tartrate 50 mg PO BID 12/02/17 Multivitamin [Multiple Vitamins] 1 tab PO DAILY 12/02/17 Calcium Carbonate [Tums] 2 tab PO TIDWM 06/13/18 Cyclobenzaprine [Flexeril*] 1 tab PO Q8HR PRN 06/13/18 Gabapentin 1 cap PO BEDTIME 06/13/18 Tramadol HCl [Ultram] 1 tab PO QID PRN 06/13/18 Patient Discharge Instructions: Please follow up with your primary care physician in 1 week. Diet: Renal Activity: Ad anthony Followup: Suzanne Cadet MD [ACTIVE - CAN ADMIT] - Leonard Rand MD [ACTIVE - CAN ADMIT] -
--- NOTE | 2018-06-15 22:53 | OP ---
Date of Procedure: 06/15/2018 Surgeon: Leonard Rand MD Preoperative Diagnoses: Sepsis, end-stage renal disease, status post Tesio catheter placement. Postoperative Diagnoses: Sepsis, end-stage renal disease, status post Tesio catheter placement. Procedure: Removal of right Tesio catheter. Estimated Blood Loss: Minimal. Specimen: Catheter tip for culture and sensitivity. Findings: As above. Anesthesia: MAC. Complications: None. Disposition: The patient tolerated the procedure, in stable condition, and taken to Recovery in good general condition. Operative Note: The patient was brought to the OR and placed in supine position. MAC anesthesia was begun. The patient was prepped and draped in the usual sterile fashion. Lidocaine 1% infiltrated l ocally. A 15-blade was used to make a 3 x 1 cm elliptical skin incision around the insertion site of the catheter. Subcutaneous tissue was divided. Cuff identified, freed from the surrounding tissue with sharp and blunt dissection, and then the catheter removed, tip sent for culture and sensitivity. Wound irrigated, bleeding controlled with cautery, flaps created, and then 3-0 chromic was used to approximate the subcutaneous tissue and close the skin. Sterile dressing was applied. The patient was awakened and taken to Recovery in good general condition. /MODL Voice ID: [id number] Report ID: [id number]
--- NOTE | 2018-06-16 02:50 | PN ---
Date of Progress Note: 06/15/2018 Subjective: The patient was admitted with shortness of breath. The patient was treated. PermCath was removed. We have been using his fistula successfully. Physical Examination: Vital Signs: Blood pressure 132/63, pulse of 65. Chest: Clear to auscultation. Heart: S1, S2. Regular. Abdomen: Soft, nontender. Extremities: No edema. Laboratory Data: H and H 9.6/27.9. Sodium of 133, potassium 4.2, bicarb 24, BUN 49, creatinine 8.8, calcium 7.8. Current Medications: The patient on include cefazolin, Epogen, gabapentin, metoprolol, Zosyn. Assessment And Plan: 1. End-stage renal disease, currently normal volume. Continue dialysis Thursday , Thursday, Thursday. We will schedule the patient for dialysis tomorrow. 2. Hypertension, controlled, optimal. Continue current medication. 3. AV fistula being in used s/p PermCath has been removed. 4. Hyponatremia, resolved. 5. Pneumonia, status post treatment. Follow up p.o. treatment as outpatient. KULDIP Voice ID: [id number] Report ID: [id number] MTDD
== END 2018-06-15 15:28 | disposition home or self-care (01) | DRG 871 ==
LOC: ER 22:55 → ERHOLD 06-13 00:41 → 4TH 06-13 03:02
PROVIDERS: ADMIT Internal Medicine; ATTEND Family Medicine
PROC: 05PY33Z Removal of Infusion Device from Upper Vein, Percutaneous Approach (ICD-10-PCS; 2018-06-14)
PROC: 0XP Anatomical Regions, Upper Extremities, Removal (ICD-10-PCS; principal; 2018-06-15 11:00)
DX: A41.9 Sepsis, unspecified organism (principal); N18.6 End stage renal disease; J18.9 Pneumonia, unspecified organism; I12.0 Hypertensive chronic kidney disease with stage 5 chronic kidney disease or end stage renal disease; J90 Pleural effusion, not elsewhere classified; E87.1 Hypo-osmolality and hyponatremia; N25.81 Secondary hyperparathyroidism of renal origin; F17.210 Nicotine dependence, cigarettes, uncomplicated; E11.22 Type 2 diabetes mellitus with diabetic chronic kidney disease; Z99.2 Dependence on renal dialysis; Z79.4 Long term (current) use of insulin; E11.40 Type 2 diabetes mellitus with diabetic neuropathy, unspecified; I73.9 Peripheral vascular disease, unspecified; D50.9 Iron deficiency anemia, unspecified; I25.10 Atherosclerotic heart disease of native coronary artery without angina pectoris; E11.21 Type 2 diabetes mellitus with diabetic nephropathy; E78.5 Hyperlipidemia, unspecified; D63.1 Anemia in chronic kidney disease; N25.0 Renal osteodystrophy
CPT/HCPCS: 36415; 71045; 71250; 80048; 80076; 81003; 81015; 82962; 83605; 83690; 83880; 84145; 84484; 85025; 85652; 86140; 87040; 87070; 87077; 87186; 87205; 87804; 90935; 93005; 96365; 96367; 96375; 99285; J0456; J0690; J0696; J1650; J2250; J2405; J2543; J3010; Q4081

== ENCOUNTER 2018-07-14 12:09 | Inpatient (IN) | payer OTHER ==
--- OUTSIDE RECORDS SUMMARY | 2018-07-14 12:12 | XMS REPORT ---
:1950 [facility] Address [address] [place] [address] [place] [id number] Care Team Providers Name Role Phone DR COLLEEN BUTTS Unavailable Unavailable Problems This patient has no known problems. Allergies, Adverse Reactions, Alerts This patient has no known allergies or adverse reactions. Medications This patient has no known medications. Encounters Start End Encounter Admission Attending Care Care Encounter Date/Time Date/Time Type Type Clinicians Facility Department ID 2017-01-23 Inpatient C [facility] RAD [id number] 08:00:00 MUSTAQ Results Test Description Test Time Test Comments Text Results Atomic Results Result Comments NM GASTRIC EMPTYING 2017-01-27 22:13:14 Examination: Nuclear medicine gastric STUDY W ISOTOPE emptying studyLocation code: [id number]: NoneDiscussion:Clinical history is remarkable for nausea, decreased appetite. After the oraladministration of 1.6 mCi of technetium 99m labeled sulfur colloid scrambledegg, dynamic OLEG imaging is performed. Time to one half emptying is 27 minutes,rapid emptying.Impression:1. No evidence of gastroparesis. The emptying time slightly rapid.
[2018-07-14 13:13] LABS: Absolute Lymphocytes (CBC) 1.4 K/uL (0.7-4.9); Absolute Monocytes 1.1 K/uL (0.1-1.3); Absolute Neutrophil 6.9 K/uL (1.8-8.0); Basophils % 0.4 % (0-1.3); Eosinophils % 3.5 % (0-4.4); Hematocrit 27.6 % (39.6-49.0); MCV 98.7 fL (80-100); MPV 6.8 fL (7.6-11.3); Monocytes % 11.5 % (3.3-12.3)
[2018-07-14 13:20] LABS: Protime INR 1.21
--- NOTE | 2018-07-14 13:42 | RAD REPORT ---
EXAM DESCRIPTION: US - Extremity Venous Uni Ltd - 07/14/2018 1:37 pm CLINICAL HISTORY: Pain;Swelling Leg swelling and edema. COMPARISON: Extrem Venous W Compress Philippe dated 12/01/2017 FINDINGS: Right lower extremity venous system was interrogated with Doppler technique. Normal flow, compressibility and augmentation was noted. There is no DVT present. IMPRESSION: No evidence of right lower extremity deep venous thrombosis.
[2018-07-14 14:06] LABS: Bilirubin Direct 0.2 mg/dL (0-0.2); Bilirubin Total 0.5 mg/dL (0.2-1.0); Potassium 5.2 mmol/L (3.5-5.1); Protein, Total 8.8 g/dL (6.4-8.2)
--- NOTE | 2018-07-14 14:26 | RAD REPORT ---
EXAM DESCRIPTION: RAD - Chest Single View - 07/14/2018 2:08 pm CLINICAL HISTORY: infection Chest pain. COMPARISON: Chest Single View dated 06/12/2018; Chest Single View dated 12/04/2017; Chest Single View dated 12/03/2017; Chest Single View dated 12/01/2017 FINDINGS: Portable technique limits examination quality. The lungs are grossly clear. Small right pleural effusion is present. The heart is moderately enlarge d in size.Right-sided venous catheter tip in the SVC.
--- NOTE | 2018-07-14 14:27 | RAD REPORT ---
EXAM DESCRIPTION: RAD - Foot Right 3 View - 07/14/2018 2:08 pm CLINICAL HISTORY: Pain;Swelling COMPARISON: Foot Right 2 View dated 03/12/2017; Foot Right Wo Cont dated 01/05/2017 FINDINGS: Partial great toe amputation is noted. Soft tissue swelling is seen along the stump site w ith demineralization fragmentation of the underlying remaining proximal phalanx of the great toe, rashaun picious for osteomyelitis. No soft tissue gas is seen. Vascular calcification is evident.
--- NOTE | 2018-07-14 14:35 | ER ---
Nurse's Notes [facility] Name: Felipe Angelo Age: 67 yrs Sex: Male : 1950 Arrival Date: 07/14/2018 Time: 12:14 Bed 14 Private MD: Out, [facility] Diagnosis: Osteomyelitis Presentation: 07/14 12:20 Presenting complaint: Patient states: "I've got swelling in my right leg, my right foot aj1 is red almost up to my monet. [facility]80, then it was 100 on top, and then it was high so they sent me over here" Denies fever. States that when he went to dialysis 3 day ago the nurse noticed the redness on his leg and called him in some antibiotics, states that his leg has started to look better since he started taking the antibiotics. Transition of care: patient was not received from another setting of care. Onset of symptoms was June 28, 2018. Risk Assessment: Do you want to hurt yourself or someone else? Patient reports no desire to harm self or others. Initial Sepsis Screen: Does the patient meet any 2 criteria? No. Patient's initial sepsis screen is negative. Does the patient have a suspected source of infection? Yes: Skin breakdown/wound. Care prior to arrival: None. 12:20 Method Of Arrival: Ambulatory aj 12:20 Acuity: SINDHU 3 aj1 Triage Assessment: 12:23 General: Appears in no apparent distress. comfortable, Behavior is calm, cooperative, aj1 appropriate for age. Pain: Complains of pain in right leg Pain currently is 3 out of 10 on a pain scale. Neuro: Level of Consciousness is awake, alert, obeys commands. Cardiovascular: Patient's skin is warm and dry. Respiratory: Airway is patent Respiratory effort is even, unlabored, Respiratory pattern is regular, symmetrical. Historical: - Allergies: 12:23 Tape; aj1 - Home Meds: 12:23 citalopram 20 mg tab 1 tab once daily [Active]; gabapentin 400 mg Oral cap daily aj1 [Active]; insulin detemir 50 unit nightly [Active]; Lasix 80 mg Oral tab 1 tab once daily [Active]; Lipitor 80 mg Oral tab 1 tab once daily [Active]; lisinopril 40 mg Oral tab 1 tab once daily [Active]; metoprolol tartrate 50 mg Oral tab 2 times per day [Active]; - PMHx: 12:23 Diabetes - IDDM; Dialysis; Hyperlipidemia; Hypertension; Renal Disease; aj1 - Immunization history:: Flu vaccine is not up to date. - Social history:: Smoking status: Patient uses tobacco products, smokes two packs cigarettes per day. - Ebola Screening: : Patient denies travel to an Ebola-affected area in the 21 days before illness onset. Screenin:10 Abuse screen: Denies threats or abuse. Nutritional screening: No deficits noted. la1 Tuberculosis screening: No symptoms or risk factors identified. Fall Risk None identified. Assessment: 13:09 General: Appears in no apparent distress. Behavior is calm, cooperative. Pain: la1 Complains of pain in right monet and anterior aspect of right ankle. Neuro: Level of Consciousness is awake, alert, obeys commands, Oriented to person, place, time, situation. Cardiovascular: Capillary refill < 3 seconds Patient's skin is warm and dry. Dialysis shunt: in the left arm, with palpable thrill, with auscultated bruit, with no erythema, with no edema, no bleeding noted. Respiratory: Airway is patent Trachea midline Respiratory effort is even, unlabored, Respiratory pattern is regular, symmetrical, Breath sounds are clear bilaterally. GI: No signs and/or symptoms were reported involving the gastrointestinal system. : No signs and/or symptoms were reported regarding the genitourinary system. Musculoskeletal: Circulation, motion, and sensation intact. Swelling present in right ankle and medial aspect of right calf. 14:08 Reassessment: Patient appears in no apparent distress at this time. No changes from la1 previously documented assessment. Patient and/or family updated on plan of care and expected duration. Pain level reassessed. Patient is alert, oriented x 3, equal unlabored respirations, skin warm/dry/pink. Vital Signs: 12:23 BP 116 / 60; Pulse 88; Resp 18; Temp 97.9; Pulse Ox 99% on R/A; Weight 107.5 kg (R); aj1 Height 6 ft. 0 in. (182.88 cm) (R); Pain 3/10; 13:15 BP 141 / 67; Pulse 83; Resp 16; Pulse Ox 100% on R/A; la1 15:21 BP 163 / 74; Pulse 71; Resp 16; Pulse Ox 98% on R/A; la1 16:16 BP 125 / 55; Pulse 73; Resp 16; Temp 97.8(TE); Pulse Ox 98% on R/A; la1 12:23 Body Mass Index 32.14 (107.50 kg, 182.88 cm) aj1 ED Course: 12:14 Patient arrived in ED. sb2 12:14 Out, of Town is Private Physician. sb2 12:22 Triage completed. aj1 12:24 Arm band placed on Patient placed in waiting room, Patient notified of wait time. aj1 12:33 Miguel Olson, RN is Primary Nurse. la1 12:35 Soledad Sheriff FNP-C is PHCP. kb 12:36 Yared Kate MD is Attending Physician. kb 12:47 PHCP role handed off by Soledad Sheriff FNP-C snw 12:47 Balbina Moffett FNP-C is PHCP. snw 12:48 PHCP role handed off by Balbina Moffett FNP-C kb 12:48 Soledad Sheriff FNP-C is PHCP. kb 12:49 Soledad Sheriff FNP-C is PHCP. kb 12:49 Yared Kate MD is Attending Physician. kb 12:51 PHCP role handed off by Soledad Sheriff FNP-C snw 12:51 Balbina Moffett FNP-C is PHCP. snw 12:54 Soledad Sheriff FNP-C is PHCP. snw 12:59 Soledad Sheriff FNP-C is PHCP. kb 12:59 Yared Kate MD is Attending Physician. kb 13:10 Placed in gown. Bed in low position. Call light in reach. Pulse ox on. NIBP on. la1 13:15 First set of blood cultures drawn by me, Second set of blood cultures drawn by me. gm 13:21 Inserted saline lock: 22 gauge in right forearm, using aseptic technique. Blood gm collected. 13:26 EKG done, by seed laboratory technician. reviewed by Soledad SANDOVAL. sm3 13:37 US Extremity Venous Unilateral Ltd In Process Unspecified. EDMS 14:09 Chest Single View XRAY In Process Unspecified. EDMS 14:09 Foot Right 3 View XRAY In Process Unspecified. EDMS 14:34 Beau Galvan MD is Hospitalizing Provider. kb 14:34 Hospitalizing Provider role handed off by Beau Galvan MD kb 14:34 Kevin Galvan MD is Hospitalizing Provider. kb Administered Medications: 15:18 Drug: Zosyn 3.375 grams Route: IVPB; Infused Over: 60 mins; Site: right forearm; la1 16:22 Follow up: IV Status: Completed infusion la1 15:18 Drug: Kayexalate 15 grams Route: PO; la1 16:22 Follow up: Response: No adverse reaction la1 15:18 Drug: Albuterol 2.5 mg Route: Inhalation; la1 15:48 Drug: vancoMYCIN 1 grams Route: IVPB; Infused Over: 2 hrs; Site: right forearm; la1 16:22 Follow up: IV Status: Infusion continued upon admission la1 Point of Care Testing: Blood Glucose: 13:15 Blood Glucose: 198 mg/dL; sm3 Ranges: Outcome: 14:34 Decision to Hospitalize by Provider. kb 16:41 Patient left the ED. sv Signatures: Dispatcher [employer] EDMS Soledad Sheriff, PROGRAM SERVICES PLANNER-C PROGRAM SERVICES PLANNER-Jimena Ovalle RN RN aj1 Nola Knutson RN RN Balbina Moffett FNP-C PROGRAM SERVICES PLANNER-Miguel Carmona RN RN la1 Chanell Page Shakira sm3 Yvonne Marvin gm Corrections: (The following items were deleted from the chart) 12:24 12:23 Arm band placed on Patient placed in an exam room, aj1 aj1 15:22 13:09 Cardiovascular: Capillary refill < 3 seconds Patient's skin is warm and dry. la1 la1
--- NOTE | 2018-07-14 14:35 | EDPHYS ---
Physician Documentation [facility] Name: Felipe Angelo Age: 67 yrs Sex: Male : 1950 Arrival Date: 07/14/2018 Time: 12:14 Bed 14 Private MD: Out, [facility] ED Physician Yared Kate HPI: 07/14 13:01 This 67 yrs old Male presents to ER via Ambulatory with complaints of sent by [facility],poss Sepsis. 13:01 The patient presents with cellulitis of the dorsum of right foot. Description: kb erythematous, hot, swollen. Onset: The symptoms/episode began/occurred 3 day(s) ago. Possible cause(s): unknown. Associated signs and symptoms: Pertinent positives: erythema, swelling, Pertinent negatives: fever. Modifying factors: the symptoms are alleviated by nothing, the symptoms are aggravated by nothing. Severity of symptoms: At their worst the symptoms were moderate, in the emergency department the symptoms have improved, mildly. The patient has experienced a previous episode. The patient has been recently seen by a physician: the patient's primary care provider, earlier today, with similar presenting complaints, and was sent to the [facility] Emergency Department for further evaluation. Historical: - Allergies: 12:23 Tape; aj1 - Home Meds: 12:23 citalopram 20 mg tab 1 tab once daily [Active]; gabapentin 400 mg Oral cap daily aj1 [Active]; insulin detemir 50 unit nightly [Active]; Lasix 80 mg Oral tab 1 tab once daily [Active]; Lipitor 80 mg Oral tab 1 tab once daily [Active]; lisinopril 40 mg Oral tab 1 tab once daily [Active]; metoprolol tartrate 50 mg Oral tab 2 times per day [Active]; - PMHx: 12:23 Diabetes - IDDM; Dialysis; Hyperlipidemia; Hypertension; Renal Disease; aj1 - Immunization history:: Flu vaccine is not up to date. - Social history:: Smoking status: Patient uses tobacco products, smokes two packs cigarettes per day. - Ebola Screening: : Patient denies travel to an Ebola-affected area in the 21 days before illness onset. ROS: 12:50 Constitutional: Negative for fever, chills, and weight loss, Cardiovascular: Negative kb for chest pain, palpitations, and edema, Respiratory: Negative for shortness of breath, cough, wheezing, and pleuritic chest pain, Abdomen/GI: Negative for abdominal pain, nausea, vomiting, diarrhea, and constipation, Back: Negative for injury and pain, : Negative for injury, bleeding, discharge, and swelling, Neuro: Negative for headache, weakness, numbness, tingling, and seizure. 12:50 Skin: Positive for cellulitis, erythema, swelling, of the dorsum of right foot. Exam: 12:50 Constitutional: This is a well developed, well nourished patient who is awake, alert, kb and in no acute distress. Head/Face: Normocephalic, atraumatic. ENT: Nares patent. No nasal discharge, no septal abnormalities noted. Tympanic membranes are normal and external auditory canals are clear. Oropharynx with no redness, swelling, or masses, exudates, or evidence of obstruction, uvula midline. Mucous membranes moist. Neck: Trachea midline, no thyromegaly or masses palpated, and no cervical lymphadenopathy. Supple, full range of motion without nuchal rigidity, or vertebral point tenderness. No Meningismus. Chest/axilla: Normal chest wall appearance and motion. Nontender with no deformity. No lesions are appreciated. Cardiovascular: Regular rate and rhythm with a normal S1 and S2. No gallops, murmurs, or rubs. Normal PMI, no JVD. No pulse deficits. Respiratory: Lungs have equal breath sounds bilaterally, clear to auscultation and percussion. No rales, rhonchi or wheezes noted. No increased work of breathing, no retractions or nasal flaring. Abdomen/GI: Soft, non-tender, with normal bowel sounds. No distension or tympany. No guarding or rebound. No evidence of tenderness throughout. Neuro: Awake and alert, GCS 15, oriented to person, place, time, and situation. Cranial nerves II-XII grossly intact. Motor strength 5/5 in all extremities. Sensory grossly intact. Cerebellar exam normal. Normal gait. 12:50 Musculoskeletal/extremity: Extremities: grossly normal except: noted in the dorsum of right foot: erythema, swelling, ROM: intact in all extremities, Circulation is intact in all extremities. Sensation intact. 12:53 Skin: cellulitis, that is moderate, on the dorsum of right foot. kb Vital Signs: 12:23 BP 116 / 60; Pulse 88; Resp 18; Temp 97.9; Pulse Ox 99% on R/A; Weight 107.5 kg (R); aj1 Height 6 ft. 0 in. (182.88 cm) (R); Pain 3/10; 13:15 BP 141 / 67; Pulse 83; Resp 16; Pulse Ox 100% on R/A; la1 15:21 BP 163 / 74; Pulse 71; Resp 16; Pulse Ox 98% on R/A; la1 16:16 BP 125 / 55; Pulse 73; Resp 16; Temp 97.8(TE); Pulse Ox 98% on R/A; la1 12:23 Body Mass Index 32.14 (107.50 kg, 182.88 cm) aj1 MDM: 12:36 Patient medically screened. kb 12:49 Data reviewed: vital signs, nurses notes. Data interpreted: Pulse oximetry: on room air kb is 99 %. Interpretation: normal. 14:33 Counseling: I had a detailed discussion with the patient and/or guardian regarding: the kb historical points, exam findings, and any diagnostic results supporting the discharge/admit diagnosis, lab results, radiology results, the need for further work-up and treatment in the hospital. Physician consultation: Kevin Galvan MD was contacted at 14:34, regarding admission, to the medical/surgical unit. patient's condition, and will see patient in ED, shortly. 07/14 12:37 Order name: C-Reactive Protein; Complete Time: 14:20 snw 07/14 12:37 Order name: Basic Metabolic Panel; Complete Time: 14:20 snw 07/14 12:37 Order name: Blood Culture Adult (2) snw 07/14 12:37 Order name: CBC with Diff; Complete Time: 13:30 snw 07/14 12:37 Order name: CPK; Complete Time: 14:20 snw 07/14 12:37 Order name: Lactate; Complete Time: 13:44 snw 07/14 12:37 Order name: LFT's; Complete Time: 14:20 snw 07/14 12:37 Order name: Procalcitonin; Complete Time: 14:09 snw 07/14 12:37 Order name: Protime (+inr); Complete Time: 13:30 snw 07/14 12:37 Order name: Ptt, Activated; Complete Time: 13:30 snw 07/14 12:37 Order name: Chest Single View XRAY; Complete Time: 14:28 snw 07/14 12:43 Order name: Foot Right 3 View XRAY; Complete Time: 14:28 kb 07/14 12:53 Order name: US Extremity Venous Unilateral Ltd; Complete Time: 13:44 snw 07/14 13:56 Order name: Glucose, Ancillary Testing; Complete Time: 14:00 EDMS 07/14 12:37 Order name: Accucheck; Complete Time: 13:15 snw 07/14 12:37 Order name: Cardiac monitoring; Complete Time: 13:08 snw 07/14 12:37 Order name: EKG - Nurse/Tech; Complete Time: 13:08 snw 07/14 12:37 Order name: IV Saline Lock - Large Bore; Complete Time: 13:08 snw 07/14 12:37 Order name: Labs collected and sent; Complete Time: 13:09 snw 07/14 12:37 Order name: O2 Per Protocol; Complete Time: 13:09 snw 07/14 12:37 Order name: O2 Sat Monitoring; Complete Time: 13:09 snw 07/14 14:18 Order name: EKG Electrocardiogram EDMS Administered Medications: 15:18 Drug: Zosyn 3.375 grams Route: IVPB; Infused Over: 60 mins; Site: right forearm; la1 16:22 Follow up: IV Status: Completed infusion la1 15:18 Drug: Kayexalate 15 grams Route: PO; la1 16:22 Follow up: Response: No adverse reaction la1 15:18 Drug: Albuterol 2.5 mg Route: Inhalation; la1 15:48 Drug: vancoMYCIN 1 grams Route: IVPB; Infused Over: 2 hrs; Site: right forearm; la1 16:22 Follow up: IV Status: Infusion continued upon admission la1 Point of Care Testing: Blood Glucose: 13:15 Blood Glucose: 198 mg/dL; sm3 Ranges: Critical Glucose Levels:Adult <50 mg/dl or >400 mg/dl <40 mg/dl or >180 mg/dl Disposition: 07/14/18 14:34 Hospitalization ordered by Kevin Galvan for Inpatient Admission. Preliminary diagnosis is Osteomyelitis. - Bed requested for Telemetry/MedSurg (Inpatient). - Status is Inpatient Admission. sv - Condition is Stable. - Problem is new. - Symptoms are unchanged. UTI on Admission? No Addendum: 07/19/2018 06:24 Co-signature as Attending Physician, Yared Kate MD I agree with the assessment and c mancuso plan of care. Signatures: Dispatcher [employer] EDMS Bertrand Sheriffistin, ACCESS ANALYST-C ACCESS ANALYST-Ckb Narayan Vivienne Jimena Díaz RN RN aj1 Nola Knutson RN RN sv Anderson, Corey, MD MD cha Therrien, Shelly, ACCESS ANALYST-C ACCESS ANALYST-Csnw Miguel Olson RN RN la1 Corrections: (The following items were deleted from the chart) 07/14 12:52 12:51 Constitutional: This is a well developed, well nourished patient who is awake, snw alert, and in no acute distress. Head/Face: Normocephalic, atraumatic. Eyes: Pupils equal round and reactive to light, extra-ocular motions intact. Lids and lashes normal. Conjunctiva and sclera are non-icteric and not injected. Cornea within normal limits. Periorbital areas with no swelling, redness, or edema. ENT: Nares patent. No nasal discharge, no septal abnormalities noted. Tympanic membranes are normal and external auditory canals are clear. Oropharynx with no redness, swelling, or masses, exudates, or evidence of obstruction, uvula midline. Mucous membranes moist. Neck: Trachea midline, no thyromegaly or masses palpated, and no cervical lymphadenopathy. Supple, full range of motion without nuchal rigidity, or vertebral point tenderness. No Meningismus. Chest/axilla: Normal chest wall appearance and motion. Nontender with no deformity. No lesions are appreciated. Cardiovascular: Regular rate and rhythm with a normal S1 and S2. No gallops, murmurs, or rubs. Normal PMI, no JVD. No pulse deficits. Respiratory: Lungs have equal breath sounds bilaterally, clear to auscultation and percussion. No rales, rhonchi or wheezes noted. No increased work of breathing, no retractions or nasal flaring. Abdomen/GI: Soft, non-tender, with normal bowel sounds. No distension or tympany. No guarding or rebound. No evidence of tenderness throughout. Back: No spinal tenderness. No costovertebral tenderness. Full range of motion. Neuro: Awake and alert, GCS 15, oriented to person, place, time, and situation. Cranial nerves II-XII grossly intact. Motor strength 5/5 in all extremities. Sensory grossly intact. Cerebellar exam normal. Normal gait. Psych: Awake, alert, with orientation to person, place and time. Behavior, mood, and affect are within normal limits. snw 12:53 12:50 Musculoskeletal/extremity: Extremities: grossly normal except: noted in the kb dorsum of right foot: erythema, swelling, ROM: intact in all extremities, Circulation is intact in all extremities. Sensation intact. kb 13:02 13:01 The patient has not recently seen a physician, kb kb 15:37 14:34 Hospitalization Ordered by Kevin Galvan MD for Inpatient Admission. Preliminary bd diagnosis is Osteomyelitis. Bed requested for Telemetry/MedSurg (Inpatient). Status is Inpatient Admission. Condition is Stable. Problem is new. Symptoms are unchanged. UTI on Admission? No. kb 16:41 15:37 07/14/2018 14:34 Hospitalization Ordered by Kevin Galvan MD for Inpatient sv Admission. Preliminary diagnosis is Osteomyelitis. Bed requested for Telemetry/MedSurg (Inpatient). Status is Inpatient Admission. Condition is Stable. Problem is new. Symptoms are unchanged. UTI on Admission? No. bd
[2018-07-14] MEDS ORDERED: ALBUTEROL 2.5 MG/3 ML NEB SOL ONE (15:13)
[2018-07-14] MEDS ORDERED: SOD POLYSTYREN SUL 15 GM/60 ML UCUP ONE (15:13)
[2018-07-14] MEDS ORDERED: VANCOMYCIN 1 GM/250 ML BAG ONE (15:13)
[2018-07-14] MEDS ORDERED: PIPER/TAZO/NS 3.375gm 3.375 GM/100 ML BAG ONE (15:14)
--- NOTE | 2018-07-14 15:33 | EKG ---
Test Date: 2018-07-14 Test Time: 13:16:41 Fuel Cell Technician: [place] MEASUREMENT RESULTS: Intervals: Rate: 82 OK: 160 QRSD: 106 QT: 374 QTc: 436 [place]: P: 47 OK: 160 QRS: 7 T: -19 INTERPRETIVE STATEMENTS: Normal sinus rhythm Inferior infarct, age undetermined Abnormal ECG Compared to ECG 06/12/2018 23:25:55 Sinus tachycardia no longer present Atrial premature complex(es) no longer present Myocardial infarct finding still present Electronically Signed On 07-14-18 15:32:28 NORMALIZER by Tyrell Fountain
[2018-07-14] MEDS ORDERED: GLUCAGON 1 MG/VIAL IM PRN (16:36)
[2018-07-14] MEDS: INSULIN -REGULAR HUMAN 50 UNIT/0.5 ML ML SQ SCH ×2 (16:36→21:00)
[2018-07-14] MEDS ORDERED: D50W 25 GM/50 ML SYRINGE IV PRN (16:36)
[2018-07-14 17:24] VITALS: BMI 4628.1
[2018-07-14] MEDS ORDERED: INFLUENZA VACCINE (for 3y+) 0.5 ML DOSE IMVAC ONE (18:00)
[2018-07-15 06:10] LABS: Absolute Lymphocytes (CBC) 0.9 K/uL (0.7-4.9); Absolute Monocytes 0.9 K/uL (0.1-1.3); Absolute Neutrophil 6.6 K/uL (1.8-8.0); Basophils % 0.7 % (0-1.3); Eosinophils % 4.2 % (0-4.4); Hematocrit 26.6 % (39.6-49.0); Lymphocytes % 10.2 % (15.3-44.8); MCH 33.2 pg (27.0-35.0); MCV 98.2 fL (80-100); MPV 6.8 fL (7.6-11.3); Monocytes % 9.7 % (3.3-12.3); RBC Red Blood Cell Count 2.71 M/uL (4.33-5.43)
[2018-07-15 06:41] LABS: Magnesium 2.3 mg/dL (1.8-2.4); Phosphorus 8.5 mg/dL (2.5-4.9)
[2018-07-15 06:51] LABS: Albumin 2.8 g/dL (3.4-5.0); Bilirubin Total 0.5 mg/dL (0.2-1.0); Potassium 5.1 mmol/L (3.5-5.1); Protein, Total 7.9 g/dL (6.4-8.2)
[2018-07-15] MEDS: INSULIN -REGULAR HUMAN 50 UNIT/0.5 ML ML SQ SCH ×4 (07:30→21:00)
[2018-07-15] MEDS ORDERED: CYCLOBENZAPRINE 10 MG TAB PO PRN (08:12)
[2018-07-15] MEDS ORDERED: TRAMADOL HCL 50 MG TAB PO PRN (08:12)
[2018-07-15] MEDS ORDERED: HYDRALAZINE HCL 25 MG TABLET PO PRN ×2 (08:12→15:00)
--- NOTE | 2018-07-15 08:14 | P.HP ---
Certification for Inpatient Patient admitted to: Inpatient With expected LOS: >2 Midnights Patient will require the following post-hospital care: None Practitioner: I am a practitioner with admitting privileges, knowledge of patient current condition, hospital course, and medical plan of care. Services: Services provided to patient in accordance with Admission requirements found in Title 42 Section 412.3 of the Code of Federal Regulations Patient History Date of Service: 07/14/18 Reason for admission: Osteomyelitis/end-stage renal disease on hemodialysis History of Present Illness: Patient is a 67-year-old gentleman who came into the hospital with fluid overload. Patient also has some inflammation of the right foot. Patient has her x-ray revealed questionable infection. Patient was admitted to the hospital for further evaluation of the possible osteomyelitis. MRI has been ordered. Will try to get it done on . Allergies surgical tape Allergy (Uncoded 07/14/18 16:59) Rash Home Medications: Furosemide [Lasix] 80 mg PO BID 12/02/17 Hydralazine HCl [Apresoline] 100 mg PO QID PRN 12/02/17 Insulin Detemir [Levemir*] 40 unit SQ BEDTIME 12/02/17 Metoprolol Tartrate 50 mg PO BID 12/02/17 Multivitamin [Multiple Vitamins] 1 tab PO DAILY 12/02/17 Calcium Carbonate [Tums] 2 tab PO TIDWM 06/13/18 Cyclobenzaprine [Flexeril*] 1 tab PO Q8HR PRN 06/13/18 Gabapentin 1 cap PO BEDTIME 06/13/18 Tramadol HCl [Ultram] 1 tab PO Q6HP PRN 06/13/18 levoFLOXacin [Levofloxacin] 250 mg PO ONCE 07/14/18 - Past Medical/Surgical History Has patient received pneumonia vaccine in the past: No Diabetic: Yes -: Diabetes -: HTN -: Neuropathy -: CRD -: PVD -: Iron deficiency anemia -: Malnutrition -: Chronic kidney disease stage 5 -: Right great toe amputation (2018) - Family History Mother Medical History: Hypertension, Cancer Notes: Throat cancer, HTN Father Medical History: Hypertension, Other (see notes) Notes: CHF Brother Medical History: Cancer Notes: Colon Cancer - Social History Smoking Status: Current every day smoker Alcohol use: No CD- Drugs: No Caffeine use: Yes Place of Residence: Home Review of Systems 10-point ROS is otherwise unremarkable Physical Examination - Vital Signs Temperature: 98.0 F Blood Pressure: 143/64 Pulse: 86 Respirations: 18 Pulse Ox (%): 97 - Physical Exam General: Alert, In no apparent distress HEENT: Atraumatic, PERRLA, Mucous membr. moist/pink, EOMI, Sclerae nonicteric Neck: Supple, 2+ carotid pulse no bruit, No LAD, Without JVD or thyroid abnormality Respiratory: Clear to auscultation bilaterally, Normal air movement Cardiovascular: Regular rate/rhythm, Normal S1 S2 Gastrointestinal: Normal bowel sounds, Soft and benign, Non-distended, No tenderness Musculoskeletal: No clubbing, No swelling, Erythema, Tenderness, Warmth Integumentary: Tenderness/swelling, Erythema Neurological: Normal gait, Normal speech, Normal strength at 5/5 x4 extr, Normal tone, Sensation intact, Cranial nerves 3-12 intact, Normal affect Lymphatics: No axilla or inguinal lymphadenopathy - Studies Laboratory Data (last 24 hrs) 07/14/18 12:58: PT 14.3 H, INR 1.21, APTT 29.1 07/14/18 12:58: WBC 9.8, Hgb 9.5 L, Hct 27.6 L, Plt Count 245 07/14/18 12:58: Sodium 132 L, Potassium 5.2 H, BUN 36 H, Creatinine 6.80 H*, Glucose 171 H, Total Bilirubin 0.5, AST 19, ALT 22, Alkaline Phosphatase 118 H Assessment & Plan - Problems (Diagnosis) (1) ESRD (end stage renal disease) Current Visit: Yes Status: Acute (2) Osteomyelitis Current Visit: Yes Status: Acute (3) Diabetes with ulcer of foot Onset Date: 01/05/17 Current Visit: No Status: Acute Qualifiers: Diabetes mellitus type: type 2 Diabetes mellitus long term care pharmacist insulin use: with shelter use Qualified Code(s): E11.621 - Type 2 diabetes mellitus with foot ulcer; L97.509 - Non-pressure chronic ulcer of other part of unspecified foot with unspecified severity; Z79.4 - [facility] (current) use of insulin (4) Obesity Onset Date: 12/02/17 Current Visit: No Status: Chronic Qualifiers: Obesity type: unspecified obesity type Qualified Code(s): E66.9 - Obesity, unspecified (5) PVD (peripheral vascular disease) Onset Date: 12/02/17 Current Visit: No Status: Chronic - Plan 1. Continue with IV antibiotic; await MRI findings 2. Continue with local wound care 3. Wound care consultation/surgical consultation-outpatient follow-up with Dr. Miller 4. Gentle IV hydration 5. Monitor CBC 6. Strict blood sugar monitoring 7. Pain control 8. GI and DVT prophylaxis Discharge Plan: Home Plan to discharge in: Greater than 2 days - Advance Directives Does patient have a Living Will: Yes Does patient have a Durable POA for Healthcare: No - Code Status/Comfort Care Code Status Assessed: Yes Code Status: Full Code Critical Care: No Time Spent Managing PTS Care (In Minutes): 55
[2018-07-15] MEDS: MULTIVITAMIN TAB PO SCH (08:41)
[2018-07-15] MEDS: FUROSEMIDE 40 MG TABLET PO SCH ×2 (08:42→20:40)
[2018-07-15] MEDS: METOPROLOL TAR 50 MG TAB PO SCH ×2 (08:42→20:41)
[2018-07-15] MEDS ORDERED: CALCIUM CARBONATE CHEW 500MG TAB PO SCH (12:00)
[2018-07-15 12:12] LABS: Urine Appearance CLEAR; Urine Bilirubin NEGATIVE (NEG); Urine Blood TRACE (NEG); Urine Color YELLOW; Urine Glucose 3+ (NEG); Urine Protein 3+ (NEG); Urine Urobilinogen 0.2 mg/dL (0.2-1.0); Urine pH 7.5 (5.0-7.0)
[2018-07-15 12:17] LABS: Urine Microscopic Reflex ORDER UMIC
[2018-07-15 12:25] LABS: Urine Amorphous Sediment 1+ /HPF (NONE SEEN); Urine Bacteria <20 /HPF (NONE SEEN); Urine Culture Reflex Order REFLEXED; Urine RBC <5 /HPF (NONE SEEN)
--- NOTE | 2018-07-15 12:25 | RAD REPORT ---
EXAM DESCRIPTION: MRI - Foot Right Wo Cont - 07/15/2018 9:56 am CLINICAL HISTORY: osteomyelitis History of amputation COMPARISON: Foot Right Wo Cont dated 01/05/2017; Foot Right 3 View dated 07/14/2018 FINDINGS: Evidence of previous partial amputation of the great toe is present. There is abnormal dim inished T1 signal and elevated T2 signal seen involving the remaining base of the proximal phalanx of the great toe as well as the majority of the first metatarsal head. The soft tissues in this region are edematous and irregular. No localized fluid collection is evident. No fracture or subluxation seen. Prominent calcaneal spurs are evident. IMPRESSION: Moderate osteomyelitis affects the remaining base of the proximal phalanx of the great t oe as well as the first metatarsal head.
[2018-07-15] MEDS ORDERED: VANCOMYCIN/NS 1 gm 1 GM/250 ML BAG IV SCH (13:00)
[2018-07-15] MEDS ORDERED: VANCOMYCIN 1.5 GM in NA CHLORIDE 0.9% 500 ML IVPB ONE (13:00)
--- NOTE | 2018-07-15 13:20 | P.PN ---
Subjective Date of Service: 07/15/18 Chief Complaint: Osteomyelitis/end-stage renal disease on hemodialysis Patient seen and examined at bedside. No family at bedside. Case discussed with nursing staff. Patient reports no changes. Denies any pain at this time. No concerns complaints this morning Review of Systems As noted Physical Examination - Vital Signs Temperature: 97.0 F Blood Pressure: 151/74 Pulse: 73 Respirations: 16 Pulse Ox (%): 98 - Physical Exam General: Alert, In no apparent distress, Oriented x3 HEENT: Atraumatic, PERRLA, EOMI Neck: Supple, JVD not distended Respiratory: Clear to auscultation bilaterally, Normal air movement Cardiovascular: Regular rate/rhythm, Normal S1 S2 Gastrointestinal: Normal bowel sounds, No tenderness Integumentary: Other (Ulceration noted on amputated area of great toe on right foot.) Neurological: Normal speech, Normal tone, Normal affect Lymphatics: No axilla or inguinal lymphadenopathy - Studies Laboratory Data (last 24 hrs) 07/14/18 12:58: PT 14.3 H, INR 1.21, APTT 29.1 07/14/18 12:58: Sodium 132 L, Potassium 5.2 H, BUN 36 H, Creatinine 6.80 H*, Glucose 171 H, Total Bilirubin 0.5, AST 19, ALT 22, Alkaline Phosphatase 118 H Assessment And Plan - Plan This is a 67-year-old male with: Right foot wound Right foot osteomyelitis Foot x-ray and put MRI consistent with moderate osteomyelitis. Continue IV vancomycin with dialysis. Pharmacy consulted for dosing. He will likely need long-term IV antibiotics with dialysis. General surgery consulted, for wound care/cultures and possible debridement ESRD, hemodialysis on Thursday, Thursday, Thursday Patient with history of ESRD, last dialysis yesterday. Nephrology consulted. Essential hypertension Restart home medications once reconciled. Diabetes mellitus, type 2 Accu-Cheks. Sliding scale insulin. Will adjust as needed Coronary artery disease, [place] artery without evidence of angina Stable, no complaints of angina/chest pain at this time. Peripheral vascular disease Iron-deficiency anemia with anemia of chronic disease Hemoglobin stable, will continue to monitor via a.m. labs. DVT prophylaxis: Lovenox GI prophylaxis: Not needed Diet: Renal Disposition: Pending symptomatic improvement, wound cultures, IV antibiotics set up. Physician Review: Patient Assessed, Agree with Above Assessment and Plan Time Spent Managing PTS Care (In Minutes): 45
[2018-07-15] MEDS: PIPERACILLIN-TAZO-DEXTROSE,ISO 3.375 GM/50 ML BAG IV SCH (15:53)
[2018-07-15] MEDS: CALCIUM CARBONATE CHEW 500MG TAB PO SCH (16:40)
[2018-07-15] MEDS: GABAPENTIN 300 MG CAP PO SCH (20:39)
[2018-07-15] MEDS: INSULIN GLARGINE 100 UNITS/ML SQ SCH (20:39)
--- NOTE | 2018-07-15 21:12 | P.CNS ---
Date of Consult: 07/15/18 Reason for Consult: ESRD to resume HD nad hyponatremia Chief Complaint: Osteomyelitis/end-stage renal disease on hemodialysis History of Present Illness: A, 67-year-old gentleman, with significant past medical history of end-stage renal disease, on hemodialysis, Thursday, Thursday, Thursday at [facility] through left arm AV fistula. , diabetes complicated with neuropathy and nephropathy, hyperlipidemia, peripheral vascular disease, status post right big toe amputation, Pt presented S/P fall found to have Rt foot erythema, MRI showed OM no head trauma, chest pain, palpitation, nausea, vomiting or diarrhea Allergies surgical tape Allergy (Uncoded 07/14/18 16:59) Rash Home Medications: Furosemide [Lasix] 80 mg PO BID 12/02/17 Hydralazine HCl [Apresoline] 100 mg PO QID PRN 12/02/17 Insulin Detemir [Levemir*] 40 unit SQ BEDTIME 12/02/17 Metoprolol Tartrate 50 mg PO BID 12/02/17 Multivitamin [Multiple Vitamins] 1 tab PO DAILY 12/02/17 Calcium Carbonate [Tums] 2 tab PO TIDWM 06/13/18 Cyclobenzaprine [Flexeril*] 1 tab PO Q8HR PRN 06/13/18 Gabapentin 1 cap PO BEDTIME 06/13/18 Tramadol HCl [Ultram] 1 tab PO Q6HP PRN 06/13/18 levoFLOXacin [Levofloxacin] 250 mg PO ONCE 07/14/18 - Past Medical/Surgical History Diabetic: Yes -: Diabetes -: HTN -: Neuropathy -: CRD -: PVD -: Iron deficiency anemia -: Malnutrition -: Chronic kidney disease stage 5 -: Right great toe amputation (2017) - Family History Mother Medical History: Hypertension, Cancer Notes: Throat cancer, HTN Father Medical History: Hypertension, Other (see notes) Notes: CHF Brother Medical History: Cancer Notes: Colon Cancer - Social History Smoking Status: Current every day smoker Alcohol use: No CD- Drugs: No Caffeine use: Yes Place of Residence: Home Physical Examination Temp Pulse Resp BP Pulse Ox 98.3 F 76 18 143/64 H 97 07/15/18 20:00 07/15/18 20:41 07/15/18 20:00 07/15/18 20:41 07/15/18 20:00 General: Oriented x3 HEENT: Atraumatic Neck: Supple Respiratory: Clear to auscultation bilaterally Cardiovascular: No edema, Regular rate/rhythm, Normal S1 S2, No rubs, No murmurs , Edema Gastrointestinal: Normal bowel sounds - Problems (1) Diabetes with ulcer of foot Onset Date: 01/05/17 Current Visit: No Status: Acute Qualifiers: Diabetes mellitus type: type 2 Diabetes mellitus custodial insulin use: with custodial use Qualified Code(s): E11.621 - Type 2 diabetes mellitus with foot ulcer; L97.509 - Non-pressure chronic ulcer of other part of unspecified foot with unspecified severity; Z79.4 - custodial (current) use of insulin (2) ESRD (end stage renal disease) on dialysis Current Visit: No Status: Chronic (3) Anemia Onset Date: 12/02/17 Current Visit: No Status: Chronic Qualifiers: Anemia type: due to chronic kidney disease Chronic kidney disease stage: stage 5, not on chronic dialysis Qualified Code(s): N18.5 - Chronic kidney disease, stage 5; D63.1 - Anemia in chronic kidney disease; D63.1 - Anemia in chronic kidney disease (4) HTN (hypertension) Onset Date: 12/02/17 Current Visit: No Status: Chronic Qualifiers: Hypertension type: essential hypertension Qualified Code(s): I10 - Essential (primary) hypertension Conclusions/Impression: A, 67-year-old gentleman, with significant past medical history of end-stage renal disease, on hemodialysis, Thursday, Thursday, Thursday at [facility] through left arm AV fistula. , diabetes complicated with neuropathy and nephropathy, hyperlipidemia, peripheral vascular disease, status post right big toe amputation, Pt presented S/P fall found to have Rt foot erythema, MRI showed OM no head trauma, chest pain, palpitation, nausea, vomiting or diarrhea ESRD on HD MWF via Lt AVF will Cont HD as above renal diet renal dose all meds Monitor vanco level on HD days before HD and dose as per level and to be given after HD Anemia will cont epo not candidadte for IV iron 2/2 active inflammation MBD high phos resume binders HTN controlled now OM Monitor vanco level on HD days before HD and dose as per level and to be given after HD
[2018-07-16 04:43] LABS: Absolute Lymphocytes (CBC) 1.4 K/uL (0.7-4.9); Absolute Neutrophil 5.4 K/uL (1.8-8.0); Basophils % 0.4 % (0-1.3); Eosinophils % 4.5 % (0-4.4); Hematocrit 26.6 % (39.6-49.0); Lymphocytes % 17.1 % (15.3-44.8); MCH 33.8 pg (27.0-35.0); MCV 97.9 fL (80-100); MPV 6.8 fL (7.6-11.3); RBC Red Blood Cell Count 2.71 M/uL (4.33-5.43)
[2018-07-16] MEDS: PIPERACILLIN-TAZO-DEXTROSE,ISO 3.375 GM/50 ML BAG IV SCH ×2 (05:20→16:30)
[2018-07-16 05:27] LABS: Albumin 2.6 g/dL (3.4-5.0); Bilirubin Total 0.5 mg/dL (0.2-1.0); Protein, Total 7.6 g/dL (6.4-8.2)
[2018-07-16 05:28] LABS: Potassium 5.6 mmol/L (3.5-5.1)
--- NOTE | 2018-07-16 06:28 | P.PN ---
Date of Service: 07/16/18 Called regarding hyper K Miguel Portillo. Potassium was 5.6. Notified nurse to contact Nephrology prior to dialysis.
[2018-07-16] MEDS: INSULIN -REGULAR HUMAN 50 UNIT/0.5 ML ML SQ SCH ×4 (07:30→21:05)
[2018-07-16] MEDS ORDERED: PNEUMOCOCCAL VACCINE 0.5 ML IMVAC ONE (08:00)
[2018-07-16] MEDS: FUROSEMIDE 40 MG TABLET PO SCH ×2 (08:42→21:04)
[2018-07-16] MEDS: MULTIVITAMIN TAB PO SCH (08:43)
[2018-07-16] MEDS: CALCIUM CARBONATE CHEW 500MG TAB PO SCH ×3 (08:43→16:30)
[2018-07-16] MEDS: METOPROLOL TAR 50 MG TAB PO SCH ×2 (08:45→21:05)
[2018-07-16] MEDS ORDERED: EPOETIN ALFA 10,000 UNIT/ML VIAL SQ SCH (10:00)
--- NOTE | 2018-07-16 11:03 | CON ---
Date of Consultation: 07/15/2018 Reason: Osteo. History Of Present Illness: The patient is a 67-year-old gentleman with multiple medical problems, w ho presented to the emergency room with fluid overload and increasing redness on his right great toe amputation site, and he was admitted, workup was done for osteo, and he does have osteo of the proxim al phalanx of the right great toe as well as metatarsal bone. He had a partial amputation done by Dr Niecy Mann a year and half ago and he was doing well up until a couple of weeks ago when he noticed re dness and increased swelling. He also had a Doppler done about a year and a half ago, which showed s ome stenosis in the right femoral artery, however, it does not appear that any intervention was done regarding at that time. He is awake, alert. He has neuropathy, so he is really not in that much gela n. No fever or chills. No open wound with purulent discharge. No sore throat, runny nose, cough, h eadaches, or dizziness. No chest pain. Review of Systems: Otherwise unremarkable. Past Medical History: Diabetes, hypertension, end-stage renal disease, neuropathy, peripheral vascul ar disease. Past Surgical History: Right great toe amputation and AV fistula placement. Allergies: INCLUDE SURGICAL TAPE. Social History: He does smoke and has been counseled, does not drink. Family History: Significant for throat cancer in the mother; hypertension in the father, and colon c ancer in the brother. Physical Examination: Vital Signs: Stable. He is afebrile. General: He is awake, alert, and oriented x3. Head and Neck: Cranial nerves 2 through 12 are grossly within normal limits. No neck masses. No JV D. Throat clear. Neck is supple. Chest: Clear. Heart: S1, S2. Abdomen: Soft. Extremity: There is paucity of hair in the lower extremities. Dorsalis pedis and posterior tibial p ulses are very difficult to palpate clinically. Dermatologic: In the base of the first great toe where the amputation was done, there is redness whi ch extends toward the metatarsal head and dorsal of the foot. There is no fluctuance, and there was no open wound. It is red and warm. Diagnostic Data: His white count is 8.2, neutrophil percentage 66, INR is 1.21. His chemistry is significant for potassium 5.6 today, BUN of 56, creatinine 10.6, he is scheduled for dialysis later today. Imaging Data: He had an MRI done yesterday, which showed moderate osteomyelitis affecting the remain ing base of the proximal phalanx of the great toe as well as the first metatarsal head. There is no localized fluid collection. No fracture or subluxation. He had a extremity venous study done, which shows no DVT in the right lower extremity. He had a Doppler done in December 2016, which showed vwjk-gt-iadwdbef plaque within the right common femor al artery. There is wein-kr-cvojpfag stenosis present and fbqt-fp-bcaqxufz distal lower extremity ar terial disease. Assessment: A 67-year-old gentleman with multiple medical problems with osteomyelitis, peripheral va scular disease. Recommendations: We will go ahead and keep him on IV antibiotics. If he improves, he will need at l east 6 weeks of IV antibiotics, since that fails, he may need further amputation of that proximal ph alanx and metatarsal bone. Up we will also get an arterial Doppler to see if his stenosis has progre ssed and should he need any intervention from the Cardiology Service. We will follow this patient while in the hospital. ROSIE/MATEUSZ Voice ID: [id number] Report ID: [id number]
--- NOTE | 2018-07-16 11:09 | P.PN ---
Subjective Date of Service: 07/16/18 Chief Complaint: Osteomyelitis/end-stage renal disease on hemodialysis Subjective: No new changes ESRD on HD MWF S/P fall found to have Rt OM HD MWF no new complaints monitor Vanco level on HD days before HD and dose as per level to be given after HD Physical Examination - Vital Signs Temperature: 98.3 F Blood Pressure: 133/63 Pulse: 71 Respirations: 18 Pulse Ox (%): 96 - Physical Exam General: Oriented x3 Neck: Supple, Without JVD or thyroid abnormality Respiratory: Clear to auscultation bilaterally Cardiovascular: No edema, Regular rate/rhythm, Normal S1 S2 Gastrointestinal: Normal bowel sounds, Soft and benign Assessment And Plan - Current Problems (Diagnosis) (1) Diabetes with ulcer of foot Onset Date: 01/05/17 Current Visit: No Status: Acute Qualifiers: Diabetes mellitus type: type 2 Diabetes mellitus 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 Qualified Code(s): E11.621 - Type 2 diabetes mellitus with foot ulcer; L97.509 - Non-pressure chronic ulcer of other part of unspecified foot with unspecified severity; Z79.4 - [facility] (current) use of insulin (2) ESRD (end stage renal disease) on dialysis Current Visit: No Status: Chronic (3) Anemia Onset Date: 12/02/17 Current Visit: No Status: Chronic Qualifiers: Anemia type: due to chronic kidney disease Chronic kidney disease stage: stage 5, not on chronic dialysis Qualified Code(s): N18.5 - Chronic kidney disease, stage 5; D63.1 - Anemia in chronic kidney disease; D63.1 - Anemia in chronic kidney disease (4) HTN (hypertension) Onset Date: 12/02/17 Current Visit: No Status: Chronic Qualifiers: Hypertension type: essential hypertension Qualified Code(s): I10 - Essential (primary) hypertension - Plan A, 67-year-old gentleman, with significant past medical history of end-stage renal disease, on hemodialysis, Thursday, Thursday, Thursday at [facility] through left arm AV fistula. , diabetes complicated with neuropathy and nephropathy, hyperlipidemia, peripheral vascular disease, status post right big toe amputation, Pt presented S/P fall found to have Rt foot erythema, MRI showed OM no head trauma, chest pain, palpitation, nausea, vomiting or diarrhea ESRD on HD MWF via Lt AVF will Cont HD as above renal diet renal dose all meds Monitor vanco level on HD days before HD and dose as per level and to be given after HD Anemia will cont epo not candidadte for IV iron 2/2 active inflammation MBD high phos resume binders Hyperkalemia Will correct on HD HTN controlled now OM Monitor vanco level on HD days before HD and dose as per level and to be given after HD Physician Review: Patient Assessed, Agree with Above Assessment and Plan
[2018-07-16] MEDS ORDERED: NA CHLORIDE 0.9% 1,000 ML IV PRN (14:23)
--- NOTE | 2018-07-16 16:31 | P.PN ---
Subjective Date of Service: 07/16/18 Chief Complaint: Osteomyelitis/end-stage renal disease on hemodialysis Patient seen and examined at bedside. No family at bedside. Case discussed with nursing staff. Patient reports no changes. Denies any pain at this time. No concerns complaints this morning Review of Systems Noted Physical Examination - Vital Signs Temperature: 98.0 F Blood Pressure: 170/83 Pulse: 69 Respirations: 18 Pulse Ox (%): 98 - Physical Exam General: Alert, In no apparent distress, Oriented x3 HEENT: Atraumatic, PERRLA, EOMI Neck: Supple, JVD not distended Respiratory: Clear to auscultation bilaterally, Normal air movement Cardiovascular: Regular rate/rhythm, Normal S1 S2 Gastrointestinal: Normal bowel sounds, No tenderness Musculoskeletal: No tenderness Integumentary: No rashes Neurological: Normal speech, Normal tone, Normal affect Lymphatics: No axilla or inguinal lymphadenopathy Assessment And Plan - Plan This is a 67-year-old male with: Right foot wound Right foot osteomyelitis Foot x-ray and put MRI consistent with moderate osteomyelitis. Continue IV vancomycin with dialysis. Pharmacy consulted for dosing. He will likely need long-term IV antibiotics with dialysis. General surgery consulted, for wound care/cultures and possible debridement. Recommendations appreciated ESRD, hemodialysis on Thursday, Thursday, Thursday Nephrology consulted. Recommendations bridge Essential hypertension Home medications restarted. Stable Diabetes mellitus, type 2 Accu-Cheks. Sliding scale insulin. Will adjust as needed Coronary artery disease, bad river band artery without evidence of angina Stable, no complaints of angina/chest pain at this time. Peripheral vascular disease Venous Dopplers negative. Arterial Dopplers pending If positive, will consult cardiology for possible intervention Iron-deficiency anemia with anemia of chronic disease Hemoglobin stable, will continue to monitor via a.m. labs. DVT prophylaxis: Lovenox GI prophylaxis: Not needed Diet: Renal Disposition: Pending symptomatic improvement, wound cultures, IV antibiotics set up. Physician Review: Patient Assessed, Agree with Above Assessment and Plan
--- NOTE | 2018-07-16 17:15 | RAD REPORT ---
EXAM DESCRIPTION: US - Lower Extremity Arterial Bilat - 07/16/2018 4:31 pm CLINICAL HISTORY: Lower extremity wound, osteomyelitis COMPARISON: December 2016 TECHNIQUE: Right brachial artery pressure measurement was obtained. Dialysis catheter on the left pr ecluded left arm pressure measurement. Waveforms were obtained along the length of each lower extremi ty. Ankle pressure measurements were obtained with index values calculated. Visual inspection of the lower extremity arterial tree performed. Grayscale and Doppler interrogation performed. FINDINGS: PAOLA values measure 0.73 on the right and 0.86 on the left. Right first toe pressure measurement could not be obtained due to prior amputation. No waveform could be identified in the left first toe. Significant focal plaquing changes are present in the midportion of the right superficial femoral art james. Significant plaquing changes are present in the superficial femoral and popliteal arteries. Trip hasic waveform pattern seen at the right common femoral artery tapering into biphasic at the superfic ial femoral and popliteal arteries. Waveforms are monophasic at the ankle. Plaquing changes or visual ly less evident in the left lower extremity. Triphasic waveform seen at the left common femoral arter y quickly tapering to biphasic in the superficial femoral artery. Left popliteal artery and ankle art james's are all monophasic. Right common femoral artery peak systolic velocity was 156 cm/second. Femoral artery velocity values range from 153-165 cm/second. Right popliteal artery velocity was 142 cm/seconds posterior tibial art james 90 cm/seconds and the dorsalis pedis artery 34 cm/second. Left common femoral artery velocity was 135 cm/second. Femoral artery velocity was 107 cm/second with the popliteal artery 79 cm/second. Left posterior tibial was 31 cm/second with the left dorsalis ped is artery 116 cm/second. IMPRESSION: Moderate severity bilateral lower extremity peripheral arterial disease is present. Ther e significant plaquing changes identifiable. PAOLA value is 0.73 on the right with a 0.86 left PAOLA. On visual inspection there does appear to be a flow limiting lesion in the mid superficial femoral ar naheed.
[2018-07-16] MEDS: GABAPENTIN 300 MG CAP PO SCH (21:05)
[2018-07-16] MEDS: INSULIN GLARGINE 100 UNITS/ML SQ SCH (21:05)
[2018-07-17] MEDS: PIPERACILLIN-TAZO-DEXTROSE,ISO 3.375 GM/50 ML BAG IV SCH (05:00)
[2018-07-17 05:17] VITALS: O2SAT 95
[2018-07-17] MEDS ORDERED: PIPER/TAZO/NS 3.375gm 3.375 GM/100 ML BAG ONE (05:49)
[2018-07-17 06:24] LABS: Absolute Lymphocytes (CBC) 1.2 K/uL (0.7-4.9); Absolute Neutrophil 5.9 K/uL (1.8-8.0); Basophils % 0.7 % (0-1.3); Eosinophils % 3.4 % (0-4.4); Hematocrit 27.6 % (39.6-49.0); Lymphocytes % 14.3 % (15.3-44.8); MCH 33.9 pg (27.0-35.0); MCV 96.9 fL (80-100); MPV 6.7 fL (7.6-11.3); Monocytes % 11.7 % (3.3-12.3); RBC Red Blood Cell Count 2.84 M/uL (4.33-5.43)
[2018-07-17 07:01] LABS: Albumin 2.7 g/dL (3.4-5.0); Bilirubin Total 0.5 mg/dL (0.2-1.0); Potassium 4.9 mmol/L (3.5-5.1); Protein, Total 7.8 g/dL (6.4-8.2)
[2018-07-17] MEDS: INSULIN -REGULAR HUMAN 50 UNIT/0.5 ML ML SQ SCH ×2 (07:30→11:30)
[2018-07-17] MEDS: MULTIVITAMIN TAB PO SCH (09:59)
[2018-07-17] MEDS: FUROSEMIDE 40 MG TABLET PO SCH (09:59)
[2018-07-17] MEDS: CALCIUM CARBONATE CHEW 500MG TAB PO SCH ×2 (09:59→12:00)
[2018-07-17] MEDS: METOPROLOL TAR 50 MG TAB PO SCH (09:59)
--- NOTE | 2018-07-17 11:28 | CON ---
History Of Present Illness: Mr. Angelo came to the hospital mainly because his right great toe, which has been amputated, but the wound around it was looking red and looked like there might be a problem . He is believed to have osteomyelitis of one of the bones near that wound. He also has end-stage r enal disease and is on hemodialysis. He has underlying diabetes. When he came to the hospital, he w as volume overloaded. Now, he is no longer volume overload. He has never had a revascularization pr ocedure. His amputation was about a year ago. Since he has been in the hospital, a foot MRI indicat es moderate osteomyelitis at the base of the proximal phalanx of the great toe and the first metatars al head. A doppler study ultrasound indicates the ankle-brachial index is 0.73 on the right, 0.86 on the left, but it looks like most of the disease is well above the knee, which is typical for the pat ient and his condition with advanced diabetes, end-stage renal disease. We usually see lesions that are impossible to really treat. Impression: At some point, he might benefit from doing an angiogram, see if there is revascularizati on that is possible. I am pessimistic about the chance of it doing much good. I think our best cour se is to treat the osteomyelitis for at least several weeks with intravenous antibiotics, and then, d o an angiogram at some point as an outpatient. CRUZ Voice ID: [id number] Report ID: [id number]
[2018-07-17 11:59] VITALS: TEMP 97.1
[2018-07-17 12:20] VITALS: BP 140/62
--- NOTE | 2018-07-17 12:22 | PN ---
Date of Progress Note: 07/17/2018 Subjective: The patient is awake and alert. No complaint. Objective: Vital signs: Stable. Afebrile. Imaging: His doppler study reviewed, shows flow-limiting lesion in the mid superficial femoral arter y. However, Dr. Fountain looked at this and said with the infection, he would prefer to do an angiogra m on this patient as an outpatient. His examination reveals decreased edema and erythema on the righ t great toe area. Assessment: Cellulitis with osteomyelitis and peripheral vascular disease, right lower extremity. Recommendations: Continue IV antibiotics for at least 6 weeks. The patient wants to go home. Along as he can get his IV vancomycin and dialysis, he can be discharged. He can follow up with Dr. Maureen soto in a couple of weeks and follow with me, should cellulitis and osteomyelitis gets worse, if he need s surgical intervention. Plan of care discussed with Dr. Galvan. /MODL Voice ID: [id number] Report ID: [id number]
--- NOTE | 2018-07-17 14:06 | P.PN ---
Subjective Date of Service: 07/17/18 Chief Complaint: Osteomyelitis/end-stage renal disease on hemodialysis ESRD on HD MWF S/P fall found to have Rt OM HD MWF no new complaints Pt to be discharged today on IV vanco on HD for 6wks HD unit notified will monitor vanco levels Physical Examination - Vital Signs Temperature: 97.1 F Blood Pressure: 140/62 Pulse: 64 Respirations: 20 Pulse Ox (%): 96 - Physical Exam General: Oriented x3 HEENT: Atraumatic Neck: Supple, Without JVD or thyroid abnormality Respiratory: Clear to auscultation bilaterally Cardiovascular: No edema, Regular rate/rhythm Gastrointestinal: Normal bowel sounds, No tenderness Assessment And Plan - Current Problems (Diagnosis) (1) Diabetes with ulcer of foot Onset Date: 01/05/17 Current Visit: No Status: Acute Qualifiers: Diabetes mellitus type: type 2 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 Qualified Code(s): E11.621 - Type 2 diabetes mellitus with foot ulcer; L97.509 - Non-pressure chronic ulcer of other part of unspecified foot with unspecified severity; Z79.4 - skilled nursing (current) use of insulin (2) ESRD (end stage renal disease) on dialysis Current Visit: No Status: Chronic (3) Anemia Onset Date: 12/02/17 Current Visit: No Status: Chronic Qualifiers: Anemia type: due to chronic kidney disease Chronic kidney disease stage: stage 5, not on chronic dialysis Qualified Code(s): N18.5 - Chronic kidney disease, stage 5; D63.1 - Anemia in chronic kidney disease; D63.1 - Anemia in chronic kidney disease (4) HTN (hypertension) Onset Date: 12/02/17 Current Visit: No Status: Chronic Qualifiers: Hypertension type: essential hypertension Qualified Code(s): I10 - Essential (primary) hypertension - Plan A, 67-year-old gentleman, with significant past medical history of end-stage renal disease, on hemodialysis, Thursday, Thursday, Thursday at [facility] through left arm AV fistula. , diabetes complicated with neuropathy and nephropathy, hyperlipidemia, peripheral vascular disease, status post right big toe amputation, Pt presented S/P fall found to have Rt foot erythema, MRI showed OM no head trauma, chest pain, palpitation, nausea, vomiting or diarrhea ESRD on HD MWF via Lt AVF will Cont HD as above renal diet renal dose all meds Monitor vanco level on HD days before HD and dose as per level and to be given after HD Anemia will cont epo not candidadte for IV iron 2/2 active inflammation MBD high phos resume binders HTN controlled now OM plan to discharge on IV vanco on HD days Hd unit notified will cont to monitor level Physician Review: Patient Assessed, Agree with Above Assessment and Plan
== END 2018-07-17 16:41 | disposition home or self-care (01) | DRG 539 ==
LOC: ER 12:09 → ERHOLD 14:35 → 2ND 16:30
PROVIDERS: ADMIT Family Medicine; ATTEND Family Medicine
DX: M86.171 Other acute osteomyelitis, right ankle and foot (principal); N18.6 End stage renal disease; I12.0 Hypertensive chronic kidney disease with stage 5 chronic kidney disease or end stage renal disease; E46 Unspecified protein-calorie malnutrition; E11.69 Type 2 diabetes mellitus with other specified complication; E11.22 Type 2 diabetes mellitus with diabetic chronic kidney disease; D63.1 Anemia in chronic kidney disease; E11.40 Type 2 diabetes mellitus with diabetic neuropathy, unspecified; E78.49 Other hyperlipidemia; E11.51 Type 2 diabetes mellitus with diabetic peripheral angiopathy without gangrene; I25.10 Atherosclerotic heart disease of native coronary artery without angina pectoris; E11.21 Type 2 diabetes mellitus with diabetic nephropathy; F17.200 Nicotine dependence, unspecified, uncomplicated; E66.9 Obesity, unspecified; Z79.4 Long term (current) use of insulin; Z99.2 Dependence on renal dialysis; Z89.411 Acquired absence of right great toe; Z68.32 Body mass index [BMI] 32.0-32.9, adult
CPT/HCPCS: 36415; 71045; 80048; 80053; 80076; 80202; 81003; 81015; 82550; 82962; 83605; 83735; 84100; 84145; 85025; 85610; 85730; 86140; 86317; 86706; 87040; 87070; 87077; 87086; 87088; 87186; 87205; 90935; 93005; 93925; 93971; 94760; 96365; 99284; J1644; J2543; J3370; Q4081

== ENCOUNTER 2018-10-27 05:26 | Observation (INO) | payer OTHER ==
--- OUTSIDE RECORDS SUMMARY | 2018-10-27 05:29 | XMS REPORT ---
:1950 Author Organization [facility] Address [address] [place] [address] Dr. Kwon [address] [place] [id number] Care Team Providers Name Role Phone DR COLLEEN BUTTS Unavailable Unavailable Problems This patient has no known problems. Allergies, Adverse Reactions, Alerts This patient has no known allergies or adverse reactions. Medications This patient has no known medications. Encounters Start End Encounter Admission Attending Care Care Encounter Date/Time Date/Time Type Type Clinicians Facility Department ID 2017-01-23 Inpatient [facility] RAD [id number] 08:00:00 MUSTAQ Results Test Description Test Time Test Comments Text Results Atomic Results Result Comments NM GASTRIC EMPTYING 2017-01-27 22:13:14 Examination: Nuclear medicine gastric STUDY W ISOTOPE emptying studyLocation code: [id number]: NoneDiscussion:Clinical history is remarkable for nausea, decreased appetite. After the oraladministration of 1.6 mCi of technetium 99m labeled sulfur colloid scrambledegg, dynamic ROMANSH imaging is performed. Time to one half emptying is 27 minutes,rapid emptying.Impression:1. No evidence of gastroparesis. The emptying time slightly rapid.
--- NOTE | 2018-10-27 05:49 | ER ---
Nurse's Notes [facility] Name: Felipe Angelo Age: 67 yrs Sex: Male : 1950 Arrival Date: 10/27/2018 Time: 05:28 Bed 16 Private MD: Diagnosis: Vomiting;End stage renal disease;Essential (primary) hypertension;Type 2 diabetes mellitus Presentation: 10/27 05:25 Presenting complaint: Patient states: that he has been having nausea and vomiting along fc with weakness x 3 days. Also having flu like symptoms. Pt is a dialysis M, W, F. Transition of care: patient was not received from another setting of care. Onset of symptoms was October 24, 2018. Risk Assessment: Do you want to hurt yourself or someone else? Patient reports no desire to harm self or others. Initial Sepsis Screen: Does the patient meet any 2 criteria? HR > 90 bpm. Yes Does the patient have a suspected source of infection? No. Patient's initial sepsis screen is negative. Care prior to arrival: Glucose check: 225. 05:29 Method Of Arrival: EMS: [facility] 05:29 Acuity: SINDHU 3 fc Triage Assessment: 05:53 General: Appears distressed, uncomfortable, Behavior is calm, cooperative, appropriate cc3 for age. Pain: Complains of pain in epigastric. EENT: No signs and/or symptoms were reported regarding the EENT system. Neuro: Level of Consciousness is awake, alert, obeys commands, Oriented to person, place, time, situation, Appropriate for age. Cardiovascular: Patient's skin is warm and dry. Respiratory: Airway is patent Respiratory effort is even, unlabored, Respiratory pattern is regular, symmetrical. GI: Reports nausea, vomiting. : No signs and/or symptoms were reported regarding the genitourinary system. Derm: No signs and/or symptoms reported regarding the dermatologic system. Patient has hemodialysis access on his left arm, HD session every Thursday, Thursday, and Thursday as per patient. Musculoskeletal: Circulation, motion, and sensation intact. Range of motion: intact in all extremities. Historical: - Allergies: 05:35 Tape; fc - Home Meds: 05:35 citalopram 20 mg tab 1 tab once daily [Active]; gabapentin 400 mg Oral cap daily fc [Active]; Lasix 80 mg Oral tab 1 tab once daily [Active]; Lipitor 80 mg Oral tab 1 tab once daily [Active]; lisinopril 40 mg Oral tab 1 tab once daily [Active]; metoprolol tartrate 50 mg Oral tab 2 times per day [Active]; - PMHx: 05:35 Diabetes - IDDM; Dialysis; Hyperlipidemia; Renal Disease; Hypertension; fc - PSHx: 05:35 Left arm fistula; fc - Immunization history:: Last tetanus immunization: unknown, Flu vaccine is up to date. - Social history:: Smoking status: Patient uses tobacco products, smokes two packs cigarettes per day. Patient/guardian denies using alcohol, street drugs. - Ebola Screening: : Patient negative for fever greater than or equal to 101.5 degrees Fahrenheit, and additional compatible Ebola Virus Disease symptoms Patient denies exposure to infectious person Patient denies travel to an Ebola-affected area in the 21 days before illness onset. - Family history:: not pertinent. Screenin:34 Abuse screen: Denies threats or abuse. Nutritional screening: No deficits noted. Tuberculosis screening: No symptoms or risk factors identified. 05:53 Fall Risk Ambulatory Aid- None/Bed Rest/Nurse Assist (0 pts). Gait- Normal/Bed cc3 Rest/Wheelchair (0 pts) Mental Status- Oriented to own ability (0 pts). Assessment: 05:53 General: see triage assessment. cc3 06:30 Reassessment: Patient appears in no apparent distress at this time. Patient and/or cc3 family updated on plan of care and expected duration. Pain level reassessed. Patient is alert, oriented x 3, equal unlabored respirations, skin warm/dry/pink. 07:00 General: Appears in no apparent distress. uncomfortable, Behavior is calm, cooperative, hj appropriate for age. Pain: Complains of pain in abdomen. Neuro: Level of Consciousness is awake, alert, obeys commands, Oriented to person, place, time, situation, Appropriate for age. Cardiovascular: Capillary refill < 3 seconds Patient's skin is warm and dry. Respiratory: Airway is patent Respiratory effort is even, unlabored, Respiratory pattern is regular, symmetrical. GI: Reports nausea, vomiting. GI: Abdomen is non-distended. : No signs and/or symptoms were reported regarding the genitourinary system. EENT: No signs and/or symptoms were reported regarding the EENT system. Derm: No signs and/or symptoms reported regarding the dermatologic system. Musculoskeletal: No signs and/or symptoms reported regarding the musculoskeletal system. 07:15 Reassessment: Patient and/or family updated on plan of care and expected duration. Pain hj level reassessed. Patient is alert, oriented x 3, equal unlabored respirations, skin warm/dry/pink. actively vomiting; MD aware;. 07:30 Reassessment: Patient and/or family updated on plan of care and expected duration. Pain hj level reassessed. Patient is alert, oriented x 3, equal unlabored respirations, skin warm/dry/pink. still vomiting; MD informed; with orders;. 08:05 Reassessment: Patient and/or family updated on plan of care and expected duration. Pain hj level reassessed. Patient is alert, oriented x 3, equal unlabored respirations, skin warm/dry/pink. pt felt relieved after Phenergan dose;. 08:25 Reassessment: hospitalist in room;. hj 09:24 Reassessment: Patient and/or family updated on plan of care and expected duration. Pain hj level reassessed. Patient is alert, oriented x 3, equal unlabored respirations, skin warm/dry/pink. pt vomited x 1; medicated per hospitalist [facility] PRN order;. Vital Signs: 05:25 BP 217 / 100; Pulse 108; Resp 20; Temp 97.8(O); Pulse Ox 100% on R/A; Weight 111.13 kg fc (R); Height 6 ft. 0 in. (182.88 cm) (R); Pain 4/10; 06:27 BP 186 / 86; Pulse 104; Resp 12 S; Pulse Ox 100% on R/A; cc3 07:00 BP 175 / 96; Pulse 102; Resp 18; Pulse Ox 100% on R/A; hj 07:00 BP 186 / 100; Pulse 102; Resp 18; Pulse Ox 100% on R/A; hj 08:07 BP 174 / 87; Pulse 105; Resp 18; Pulse Ox 100% on R/A; hj 10:06 BP 193 / 102; Pulse 116; Resp 22; Pulse Ox 100% on R/A; pc1 10:51 BP 156 / 69; Pulse 105; Resp 18; Pulse Ox 100% on R/A; hj 05:25 Body Mass Index 33.23 (111.13 kg, 182.88 cm) ED Course: 05:25 Arm band placed on Patient placed in an exam room, on a stretcher. 05:28 Patient arrived in ED. 05:32 Triage completed. 05:34 Patient has correct armband on for positive identification. Bed in low position. Call fc light in reach. Side rails up X2. 05:34 No provider procedures requiring assistance completed. 05:42 Yared Kate MD is Attending Physician. [facility] 05:45 Inserted saline lock: 20 gauge in right hand, using aseptic technique. Blood collected. cc3 05:48 Rigo Cespedes MD is Hospitalizing Provider. chase 05:53 Kaitlin Barrios is Primary Nurse. cc3 06:14 X-ray completed. Portable x-ray completed in exam room. Patient tolerated procedure kw well. 06:15 XRAY Chest (1 view) In Process Unspecified. EDMS 07:00 Report given to JACIEL Zambrano. cc3 07:10 Juan Manuel Guajardo RN is Primary Nurse. 10:51 Patient admitted, IV remains in place. intact. hj Administered Medications: 05:45 Drug: NS 0.9% 1000 ml Route: IV; Rate: 30 ml/hr; Site: right hand; cc3 07:25 Follow up: IV Status: Completed infusion hj 08:36 Follow up: IV Status: Infusion continued upon admission hj 06:00 Drug: Zofran 4 mg Route: IVP; Site: right hand; cc3 06:53 Follow up: Response: No adverse reaction; Nausea is decreased; Vomiting decreased cc3 07:23 Drug: Zofran 4 mg Route: IVP; Site: right hand; hj 07:26 Follow up: Response: No adverse reaction hj 07:52 Drug: Phenergan 12.5 mg Route: IVP; Site: right hand; hj 07:54 Follow up: Response: No adverse reaction hj 08:29 Drug: ProTONIX 40 mg Route: IVP; Site: right antecubital; hj 08:32 Follow up: Response: No adverse reaction Outcome: 05:49 Decision to Hospitalize by Provider. chase 10:50 Admitted to Tele accompanied by tech, family with patient, via stretcher, room 423, hj with chart, Report called to JACIEL Pizarro 10:50 Condition: stable 10:50 Instructed on the need for admit, Demonstrated understanding of instructions. 10:52 Patient left the ED. robert Signatures: Dispatcher [employer] EDYared Villaseñor MD MD cha Chretien, Felicia, RN RN Yolis Ignacio Henry, RN RN hj Cordel, Charlene 3 John, Vince pc1
--- NOTE | 2018-10-27 05:49 | EDPHYS ---
Physician Documentation [facility] Name: Felipe Angelo Age: 67 yrs Sex: Male : 1950 Arrival Date: 10/27/2018 Time: 05:28 Bed 16 Private MD: ED Physician Yared Kate HPI: 10/27 05:45 This 67 yrs old Male presents to ER via EMS with complaints of chase Nausea/Vomiting. 05:45 The patient presents to the emergency department with nausea, vomiting. Onset: The chase symptoms/episode began/occurred 2 day(s) ago. Possible causes: unknown. The symptoms are aggravated by nothing. The symptoms are alleviated by nothing. Associated signs and symptoms: The patient has no apparent associated signs or symptoms. Severity of symptoms: At their worst the symptoms were mild moderate in the emergency department the symptoms are unchanged. The patient has not experienced similar symptoms in the past. Historical: - Allergies: 05:35 Tape; fc - Home Meds: 05:35 citalopram 20 mg tab 1 tab once daily [Active]; gabapentin 400 mg Oral cap daily fc [Active]; Lasix 80 mg Oral tab 1 tab once daily [Active]; Lipitor 80 mg Oral tab 1 tab once daily [Active]; lisinopril 40 mg Oral tab 1 tab once daily [Active]; metoprolol tartrate 50 mg Oral tab 2 times per day [Active]; - PMHx: 05:35 Diabetes - IDDM; Dialysis; Hyperlipidemia; Renal Disease; Hypertension; fc - PSHx: 05:35 Left arm fistula; fc - Immunization history:: Last tetanus immunization: unknown, Flu vaccine is up to date. - Social history:: Smoking status: Patient uses tobacco products, smokes two packs cigarettes per day. Patient/guardian denies using alcohol, street drugs. - Ebola Screening: : Patient negative for fever greater than or equal to 101.5 degrees Fahrenheit, and additional compatible Ebola Virus Disease symptoms Patient denies exposure to infectious person Patient denies travel to an Ebola-affected area in the 21 days before illness onset. - Family history:: not pertinent. ROS: 05:45 Constitutional: Negative for fever, chills, and weight loss, Eyes: Negative for injury, chase pain, redness, and discharge, ENT: Negative for injury, pain, and discharge, Neck: Negative for injury, pain, and swelling, Cardiovascular: Negative for chest pain, palpitations, and edema, Respiratory: Negative for shortness of breath, cough, wheezing, and pleuritic chest pain, Back: Negative for injury and pain, : Negative for injury, bleeding, discharge, and swelling, MS/Extremity: Negative for injury and deformity, Skin: Negative for injury, rash, and discoloration, Neuro: Negative for headache, weakness, numbness, tingling, and seizure, Psych: Negative for depression, anxiety, suicide ideation, homicidal ideation, and hallucinations, Allergy/Immunology: Negative for hives, rash, and allergies, Endocrine: Negative for neck swelling, polydipsia, polyuria, polyphagia, and marked weight changes, Hematologic/Lymphatic: Negative for swollen nodes, abnormal bleeding, and unusual bruising. 05:45 Abdomen/GI: Positive for nausea and vomiting. Exam: 05:45 Constitutional: This is a well developed, well nourished patient who is awake, alert, chase and in no acute distress. Head/Face: Normocephalic, atraumatic. Eyes: Pupils equal round and reactive to light, extra-ocular motions intact. Lids and lashes normal. Conjunctiva and sclera are non-icteric and not injected. Cornea within normal limits. Periorbital areas with no swelling, redness, or edema. ENT: Nares patent. No nasal discharge, no septal abnormalities noted. Tympanic membranes are normal and external auditory canals are clear. Oropharynx with no redness, swelling, or masses, exudates, or evidence of obstruction, uvula midline. Mucous membranes moist. Neck: Trachea midline, no thyromegaly or masses palpated, and no cervical lymphadenopathy. Supple, full range of motion without nuchal rigidity, or vertebral point tenderness. No Meningismus. Chest/axilla: Normal chest wall appearance and motion. Nontender with no deformity. No lesions are appreciated. Cardiovascular: Regular rate and rhythm with a normal S1 and S2. No gallops, murmurs, or rubs. Normal PMI, no JVD. No pulse deficits. Respiratory: Lungs have equal breath sounds bilaterally, clear to auscultation and percussion. No rales, rhonchi or wheezes noted. No increased work of breathing, no retractions or nasal flaring. Back: No spinal tenderness. No costovertebral tenderness. Full range of motion. Male : Normal genitalia with no discharge or lesions. Skin: Warm, dry with normal turgor. Normal color with no rashes, no lesions, and no evidence of cellulitis. MS/ Extremity: Pulses equal, no cyanosis. Neurovascular intact. Full, normal range of motion. Neuro: Awake and alert, GCS 15, oriented to person, place, time, and situation. Cranial nerves II-XII grossly intact. Motor strength 5/5 in all extremities. Sensory grossly intact. Cerebellar exam normal. Normal gait. Psych: Awake, alert, with orientation to person, place and time. Behavior, mood, and affect are within normal limits. 05:45 Abdomen/GI: Inspection: abdomen appears normal, Bowel sounds: active, Palpation: abdomen is soft and non-tender, Liver: no appreciated palpable abnormalities, Hernia: not appreciated. Vital Signs: 05:25 BP 217 / 100; Pulse 108; Resp 20; Temp 97.8(O); Pulse Ox 100% on R/A; Weight 111.13 kg fc (R); Height 6 ft. 0 in. (182.88 cm) (R); Pain 4/10; 06:27 BP 186 / 86; Pulse 104; Resp 12 S; Pulse Ox 100% on R/A; cc3 07:00 BP 175 / 96; Pulse 102; Resp 18; Pulse Ox 100% on R/A; hj 07:00 BP 186 / 100; Pulse 102; Resp 18; Pulse Ox 100% on R/A; hj 08:07 BP 174 / 87; Pulse 105; Resp 18; Pulse Ox 100% on R/A; hj 10:06 BP 193 / 102; Pulse 116; Resp 22; Pulse Ox 100% on R/A; pc1 10:51 BP 156 / 69; Pulse 105; Resp 18; Pulse Ox 100% on R/A; hj 05:25 Body Mass Index 33.23 (111.13 kg, 182.88 cm) MDM: 05:42 Patient medically screened. [facility] 05:47 Data reviewed: vital signs, nurses notes, lab test result(s), EKG, radiologic studies. [facility] 10/27 05:45 Order name: Basic Metabolic Panel; Complete Time: 07:[address] [facility] 10/27 05:45 Order name: CBC with Diff; Complete Time: 07:[address] [facility] 10/27 05:45 Order name: LFT's; Complete Time: 07:[address] [facility] 10/27 05:45 Order name: Magnesium; Complete Time: 07:[address] [facility] 10/27 05:45 Order name: NT PRO-BNP; Complete Time: 07:[address] [facility] 10/27 05:45 Order name: PT-INR; Complete Time: 07:39 [place] 10/27 05:45 Order name: Troponin (emerg Dept Use Only); Complete Time: 07:[address] [facility] 10/27 05:45 Order name: XRAY Chest (1 view) [facility] 10/27 05:45 Order name: Lipase; Complete Time: 07:[address] [facility] 10/27 10:13 Order name: Glucose, Ancillary Testing EDMS 10/27 05:45 Order name: EKG; Complete Time: 05:[address] [facility] 10/27 05:45 Order name: Cardiac monitoring; Complete Time: 05:[address] [facility] 10/27 05:45 Order name: EKG - Nurse/Tech; Complete Time: 05:[address] [facility] 10/27 05:45 Order name: IV Saline Lock; Complete Time: 05:[address] [facility] 10/27 05:45 Order name: Labs collected and sent; Complete Time: 05:[address] [facility] 10/27 05:45 Order name: O2 Per Protocol; Complete Time: 05:[address] [facility] 10/27 05:45 Order name: O2 Sat Monitoring; Complete Time: 05:[address] [facility] Administered Medications: 05:45 Drug: NS 0.9% 1000 ml Route: IV; Rate: 30 ml/hr; Site: right hand; cc3 07:25 Follow up: IV Status: Completed infusion hj 08:36 Follow up: IV Status: Infusion continued upon admission hj 06:00 Drug: Zofran 4 mg Route: IVP; Site: right hand; cc3 06:53 Follow up: Response: No adverse reaction; Nausea is decreased; Vomiting decreased cc3 07:23 Drug: Zofran 4 mg Route: IVP; Site: right hand; hj 07:26 Follow up: Response: No adverse reaction hj 07:52 Drug: Phenergan 12.5 mg Route: IVP; Site: right hand; hj 07:54 Follow up: Response: No adverse reaction hj 08:29 Drug: ProTONIX 40 mg Route: IVP; Site: right antecubital; hj 08:32 Follow up: Response: No adverse reaction hj Disposition: 03/06/19 05:49 Hospitalization ordered by Rigo Cespedes for Observation. Preliminary diagnosis are Vomiting, End stage renal disease, Essential (primary) hypertension, Type 2 diabetes mellitus. - Bed requested for Telemetry/MedSurg (observation). - Status is Observation. hj - Condition is Stable. - Problem is new. - Symptoms have improved. UTI on Admission? No Signatures: Dispatcher [employer] EDWA Yared Kate MD MD cha Chretien, Felicia RN Kobe Barriga em1 Juan Manuel Guajardo RN RN Kaitlin De Leon cc3 Corrections: (The following items were deleted from the chart) 07:57 05:49 Hospitalization Ordered by Rigo Cespedes MD for Observation. Preliminary chase diagnosis is Vomiting; End stage renal disease; Essential (primary) hypertension. Bed requested for Telemetry/MedSurg (observation). Status is Observation. Condition is Stable. Problem is new. Symptoms have improved. UTI on Admission? No. chase 09:00 07:57 10/27/2018 05:49 Hospitalization Ordered by Rigo Cespedes MD for Observation. em1 Preliminary diagnosis is Vomiting; End stage renal disease; Essential (primary) hypertension; Type 2 diabetes mellitus. Bed requested for Telemetry/MedSurg (observation). Status is Observation. Condition is Stable. Problem is new. Symptoms have improved. UTI on Admission? No. chase 10:52 09:00 10/27/2018 05:49 Hospitalization Ordered by Rigo Cespedes MD for Observation. hj Preliminary diagnosis is Vomiting; End stage renal disease; Essential (primary) hypertension; Type 2 diabetes mellitus. Bed requested for Telemetry/MedSurg (observation). Status is Observation. Condition is Stable. Problem is new. Symptoms have improved. UTI on Admission? No. em1
[2018-10-27 06:05] LABS: Absolute Lymphocytes (CBC) 1.7 K/uL (0.7-4.9); Absolute Monocytes 0.8 K/uL (0.1-1.3); Absolute Neutrophil 6.9 K/uL (1.8-8.0); Basophils % 0.4 % (0-1.3); Hematocrit 40.8 % (39.6-49.0); Lymphocytes % 17.4 % (15.3-44.8); MPV 7.5 fL (7.6-11.3); Monocytes % 8.8 % (3.3-12.3); RBC Red Blood Cell Count 4.05 M/uL (4.33-5.43)
[2018-10-27] MEDS ORDERED: ONDANSETRON 4 MG/2 ML VIAL ONE ×3 (06:07→09:34)
[2018-10-27] MEDS ORDERED: NA CHLORIDE 0.9% 1,000 ML ONE (06:07)
[2018-10-27 06:14] LABS: Protime INR 1.03
[2018-10-27 06:41] LABS: ALT/SGPT 24 U/L (12-78); AST/SGOT 22 U/L (15-37); Albumin 3.9 g/dL (3.4-5.0); Alkaline Phosphatase 133 U/L (45-117); BUN Blood Urea Nitrogen 45 mg/dL (7-18); Bicarbonate 23 mmol/L (21-32); Bilirubin Direct 0.2 mg/dL (0-0.2); Bilirubin Total 0.7 mg/dL (0.2-1.0); Glucose Level 266 mg/dL (74-106); Lipase 505 U/L (73-393); Magnesium 2.5 mg/dL (1.8-2.4); NT PRO-BNP 4328 pg/mL (<125); Potassium 5.1 mmol/L (3.5-5.1); Protein, Total 9.6 g/dL (6.4-8.2); Sodium Level 132 mmol/L (136-145); Troponin (Emerg Dept Use Only) < 0.02 ng/mL (0.0-0.045)
[2018-10-27] MEDS ORDERED: PROMETHAZINE 25 MG/ML VIAL ONE (08:02)
--- NOTE | 2018-10-27 08:31 | RAD REPORT ---
EXAM DESCRIPTION: RAD - Chest Single View - 10/27/2018 6:19 am CLINICAL HISTORY: Cough;Abdominal distention Chest pain. COMPARISON: Chest Single View dated 07/14/2018; Chest Single View dated 06/12/2018; Chest Single Vie w dated 12/04/2017; Chest Single View dated 12/03/2017 FINDINGS: Portable technique limits examination quality. Emphysematous changes are present throughout the lungs. No focal infiltrate is detected. The heart is moderately enlarged in size. No displaced fractures. IMPRESSION: Mild COPD.
[2018-10-27] MEDS ORDERED: PANTOPRAZOLE 40 MG INJ ONE (08:42)
[2018-10-27] MEDS: ONDANSETRON 4 MG/2 ML VIAL IV PRN ×3 (09:30→20:01)
[2018-10-27] MEDS: D5 0.45 NS 1,000 ML IV SCH (10:06)
[2018-10-27] MEDS ORDERED: ACETAMINOPHEN 500 MG TAB PO PRN (10:06)
[2018-10-27 11:29] VITALS: BMI 4686.6
[2018-10-27] MEDS ORDERED: ALBUTEROL 2.5 MG/3 ML NEB SOL NEB PRN (11:54)
[2018-10-27] MEDS: HYDRALAZINE HCL 20 MG/ML VIAL IV PRN ×2 (12:14→13:06)
[2018-10-27] MEDS: PROMETHAZINE 25 MG/ML VIAL IV PRN ×2 (12:14→18:47)
[2018-10-27] MEDS: INSULIN -REGULAR HUMAN 50 UNIT/0.5 ML ML SQ SCH ×3 (12:14→21:00)
--- NOTE | 2018-10-27 12:35 | EKG ---
Test Date: 2018-10-27 Test Time: 05:32:57 Bumboater: MARIBEL MEASUREMENT RESULTS: Intervals: Rate: 104 MD: 186 QRSD: 104 QT: 356 QTc: 468 Hart: P: 42 MD: 186 QRS: 2 T: -1 INTERPRETIVE STATEMENTS: Sinus tachycardia Inferior infarct, age undetermined Abnormal ECG Compared to ECG 07/14/2018 13:16:41 Sinus rhythm no longer present Myocardial infarct finding still present Electronically Signed On 10-27-18 12:34:07 DIRECTOR OF KIDS by Tyrell Fountain
--- NOTE | 2018-10-27 16:17 | CON ---
Date of Consultation: 10/27/2018 Reason For Consultation: Elevated BUN and creatinine, hypertension, fluid management, end-stage marquez l disease. History Of Present Illness: This is a pleasant 67-year-old gentleman with significant past medical H istory of diabetes complicated with neuropathy and nephropathy. Next, end-stage renal disease, on he modialysis Thursday, Thursday, Thursday at [facility]. Hypertension, peripheral vas cular disease, status post big toe amputation, hyperlipidemia, end-stage renal disease, on hemodialys is, Thursday, Thursday, Thursday. The patient had dialysis on Thursday, after that the patient had nausea and vomiting, intractable, continue till yesterday. For that reason, he reported to the emergency r oom, found to have elevation in blood pressure. For that reason patient was admitted. The patient i s scheduled for dialysis today for that reason, we have been consulted. Past Medical History: 1.Diabetes complicated with neuropathy. 2.Hypertension. 3.Peripheral vascular disease. 4.Status post toe amputation. 5.Hyperlipidemia. 6.End-stage renal disease, on hemodialysis Thursday, Thursday, Thursday at [facility]. Social History: Ex-smoker. Denied alcohol. Denied drug abuse. Lives with family. Family History: Positive for diabetes. Past Surgical History: Includes AV fistula creation on the left side, PermCath placement and removal , toe amputation. Home Medications: Include, 1.Levaquin. 2.Vancomycin. 3.Tramadol. 4.Metoprolol. 5.Hydralazine. 6.Gabapentin. 7.Tums. Review of Systems: Head and Neck: No red eye. No ear pain. : No polyuria, no dysuria, no hematuria. Recreation Assistant: Not applicable. Respiratory: No shortness of breath. Cardiovascular: Has peripheral vascular disease. Respiratory: No shortness of breath. Neuro: Has neuropathy. Musculoskeletal: Has abdominal pain. Endocrine : No polydipsia. Skin: No rash. Physical Examination: Vital Signs: When I saw the patient, blood pressure being elevated 166/69, pulse of 80 and afebrile. Chest: Clear to auscultation. Heart: S1, S2, regular. Abdomen: Soft, nontender. No guarding or rebound. Extremities: Big toe amputation. Trace edema. Neurologic: Oriented x3. No focal. Laboratory Data: WBC 9.6, H and H 13.9/40.8, platelet 233. Sodium 132, potassium 5.1, bicarb 23, BU N 45, creatinine 10.9, calcium 9.1, magnesium 2.5. Assessment And Plan: 1.End-stage renal disease. Due for dialysis today with Hyperkalemia. We will arrange for the patie nt for dialysis today. We will dialyze him on low potassium bath. 2.Hypertension. We will resume home blood pressure medication. We will follow up blood pressure af ter dialysis. 3.Chronic kidney disease. We will resume MARIANELA. 4.Intractable vomiting. Continue PPI. We will follow up with primary. 5.Hyperkalemia. The patient is going to be dialyze on low potassium bath. 6.Secondary hyperparathyroid, continue binder. Thank you Dr. Harmon, for allowing us to participate in the care of your patient. Case was discussed with Dr. Harmon, agreed on the plan. Discussed with the patient, ve rbalized understanding. KULDIP Voice ID: [id number] Report ID: [id number]
[2018-10-27] MEDS ORDERED: SODIUM CHLORIDE 0.9% 10ML INJ IV PRN (17:02)
[2018-10-27] MEDS ORDERED: GLUCAGON 1 MG/VIAL IM PRN (17:13)
[2018-10-27] MEDS ORDERED: D50W 25 GM/50 ML SYRINGE IV PRN (17:13)
--- NOTE | 2018-10-27 17:21 | RAD REPORT ---
EXAM DESCRIPTION: CT - Abdomen Pelvis Wo Contrast - 10/27/2018 3:04 pm CLINICAL HISTORY: Abdominal pain vomiting COMPARISON: 2017 TECHNIQUE: Computed axial tomography of the abdomen and pelvis was obtained. IV and oral contrast we re not requested. All CT scans are performed using dose optimization technique as appropriate and may include automated exposure control or mA/KV adjustment according to patient size. FINDINGS: The evaluation of solid organs, vessels and bowel is limited secondary to the lack of con trast administration. Multiple small gallstones are present. Gallbladder is borderline distended. The liver, spleen, pancreas, adrenals and kidneys appear grossly normal. The appendix is normal. There is no evidence of diverticulitis. Small inguinal hernias contain fat. Left external iliac stent IMPRESSION: Cholelithiasis with borderline gallbladder distention
[2018-10-27] MEDS ORDERED: PANTOPRAZOLE 40 MG INJ IVP SCH (18:00)
--- NOTE | 2018-10-27 19:08 | HP ---
Date of Admission: 10/27/2018 Chief Complaint: Intractable nausea and vomiting. Consultants: Dr. Cadet with Nephrology. Code Status: Full. History Of Present Illness: The patient is a 67-year-old male with past medical history of end-stage renal disease, on hemodialysis Thursday, Thursday, Thursday; diabetes, hypertension, neuropathy, periph eral vascular disease, anemia, comes in with intractable nausea and vomiting of 2-day duration. The patient had dialysis on Thursday 2 days prior to admission and has had sudden onset of his symptoms. H e denies any fevers, chills, diarrhea, or constipation. No unusual foods or well water. The patient denies any ill contacts. The patient has been having multiple episodes of vomiting. The patient's symptoms are constant, moderate, progressively worsening. No chest pain or shortness of breath. In the ER, his workup revealed a creatinine of 10.9. His sodium was 132. White blood cell count was no rmal. Chest x-ray showed emphysematous changes, but no focal infiltrate. The patient was then refer red for admission. When seen in the ER, he was awake, alert, oriented x3. Past Medical History: COPD; end-stage renal disease, on hemodialysis; diabetes, insulin requiring; h ypertension, neuropathy, peripheral vascular disease, iron deficiency anemia, malnutrition. Past Surgical History: Right great toe amputation. Allergies: TO SURGICAL TAPE, CAUSES RASH. Medications: List reviewed. Social History: The patient is a daily smoker. Smokes about over half pack per day. No alcohol use or illicit drug use. He is a retired and lives at home. He is independent in his activiti es of daily living. Family History: Mother has hypertension, throat cancer. Father has hypertension and congestive hear t failure. Brother also has colon cancer. Review of Systems: An 11-point system reviewed, negative except as per HPI. Physical Examination: Vital Signs: Pulse 104, blood pressure 186/86, respirations 12, O2 100% on room air. General: Awake, alert, oriented x3, elderly male, ill appearing. HEENT: Normocephalic, atraumatic. PERRLA. EOMI. Dry mucous membranes. Oropharynx is clear. Poor dentition. Conjunctivae anicteric. Neck: Supple. No JVD. Trachea midline. CV: S1, S2. Regular rate and rhythm. Peripheral pulses are weak bilaterally. Respiratory: Moving air well bilaterally. No wheezing or stridor. No use of accessory muscles. Gastrointestinal: Abdomen is soft, nontender, nondistended. Positive bowel sounds. No guarding or rigidity. Extremities: No clubbing, cyanosis, or edema. No calf tenderness. Neuro: Cranial nerves 2-12 intact grossly. No focal neurological deficit. Speech is normal. Skin: No rashes. Normal skin turgor. Psych: Mood is okay. Affect is full. Insight and judgment are fair. Laboratory Data: Sodium 132, potassium 5.1, chloride 93, CO2 23, BUN 45, creatinine 10.9, glucose 26 6, calcium 9.1, magnesium 2.5. Troponin less than 0.02. BNP 4328 and lipase is 505. WBC 9.6, H and H 13.9 and 40.8, platelets 223. INR 1.03. MCV is 100.8. Chest x-ray, personally reviewed, shows e mphysematous changes. No focal infiltrate. Heart moderately enlarged. No fractures or COPD. Assessment And Plan: A 67-year-old male with: 1.Intractable nausea and vomiting. Unclear etiology, may be related to possible developing pancreat itis. Lipase level is elevated. We will check amylase level and obtain CT scan of the abdomen. The patient however denies any abdominal pain. 2.End-stage renal disease, on hemodialysis. Dr. Cadet has been consulted. We will continue with dialysis. The patient's dialysis days are Thursday, Thursday, Thursday. Last dialysis was on Thursday. We will continue to monitor creatinine and avoid NSAIDs. 3.Hyponatremia. We will continue to monitor. 4.Hypochloremia, likely secondary to intractable nausea and vomiting. 5.Diabetes mellitus type 2, insulin-requiring with chronic kidney disease, on hemodialysis. We will start on sliding scale insulin. We will adjust home dose of long-acting insulin as patient is n.p.o . 6.Hypertension. We will resume home medications as appropriate. 7.Iron deficiency anemia. Monitor hemoglobin and hematocrit. 8.Peripheral vascular disease. Elevated lipase level. We will obtain CT scan of the abdomen. Poss ible pancreatitis. Plan: Admit the patient to Med-Surg, place as observation. We will start on D5W, keep n.p.o., possi ble GI consultation if not improving. I will consult Nephrology for dialysis. CUCO Voice ID: [id number]
[2018-10-27] MEDS: PANTOPRAZOLE 40 MG INJ IVP SCH (20:01)
[2018-10-27] MEDS: INSULIN GLARGINE 100 UNITS/ML SQ SCH (20:01)
[2018-10-28] MEDS: HYDRALAZINE HCL 20 MG/ML VIAL IV PRN ×2 (00:40→04:41)
[2018-10-28] MEDS: PROMETHAZINE 25 MG/ML VIAL IV PRN ×3 (00:40→20:28)
[2018-10-28] MEDS: D5 0.45 NS 1,000 ML IV SCH (00:42)
[2018-10-28] MEDS: ONDANSETRON 4 MG/2 ML VIAL IV PRN ×4 (02:26→23:30)
[2018-10-28 05:03] LABS: Absolute Lymphocytes (CBC) 1.1 K/uL (0.7-4.9); Absolute Monocytes 1.3 K/uL (0.1-1.3); Absolute Neutrophil 11.2 K/uL (1.8-8.0); Basophils % 0.2 % (0-1.3); Eosinophils % 0.5 % (0-4.4); Hematocrit 37.1 % (39.6-49.0); Lymphocytes % 7.8 % (15.3-44.8); MPV 7.4 fL (7.6-11.3); Monocytes % 9.8 % (3.3-12.3); RBC Red Blood Cell Count 3.67 M/uL (4.33-5.43)
[2018-10-28 05:16] LABS: Albumin 3.8 g/dL (3.4-5.0); Bilirubin Total 0.7 mg/dL (0.2-1.0); Potassium 4.4 mmol/L (3.5-5.1); Protein, Total 8.7 g/dL (6.4-8.2)
--- NOTE | 2018-10-28 08:42 | RAD REPORT ---
EXAM DESCRIPTION: US - Abdomen Exam Complete - 10/28/2018 8:23 am CLINICAL HISTORY: Abdominal pain, cholelithiasis COMPARISON: CT study October 27 FINDINGS: Gallbladder size is normal. Patient has multiple small mobile gallstones. These are visual ized on the prior day CT study. No wall thickening or pericholecystic fluid. Common bile duct is norm al with no common duct stone identified. The liver is 15 cm in maximum dimension. Spleen is 12 cm. No focal liver lesions identifiable. Liver does show a increase in cortical echogenicity. This can be s een with fatty infiltration although the attenuation measurements on the prior day CT study do not in dicate fatty infiltration. This could also reflect diffuse hepatic parenchymal disease. No capsular n odularity. The pancreas is too obscured by bowel gas for full assessment. No pancreatic abnormality s een on the prior day CT study. No hydronephrosis or suspicious mass in either kidney. Aorta and IVC show no suspicious findings. No ascites or bulky lymphadenopathy. IMPRESSION: Multiple small mobile gallstones without wall thickening or pericholecystic fluid. No duct stone or biliary tree dilatation identified. Increased echogenicity of the liver parenchyma without a focal liver lesion. Prior day CT attenuation values did not indicate fatty infiltration. Patient could have diffuse hepatic parenchymal disease. Correlation can be made with liver function studies.
[2018-10-28] MEDS: PANTOPRAZOLE 40 MG INJ IVP SCH ×2 (08:44→20:27)
[2018-10-28] MEDS: INSULIN -REGULAR HUMAN 50 UNIT/0.5 ML ML SQ SCH ×4 (08:45→20:13)
[2018-10-28] MEDS: D5 0.9 NS 1,000 ML IV SCH (12:00)
--- NOTE | 2018-10-28 16:38 | CON ---
Date of Consultation: 10/28/2018 Reason For Consultation: Gallstones, nausea, and vomiting. History Of Present Illness: The patient is a 67-year-old gentleman with end-stage renal disease and other medical problems, who has had significant amount of nausea and vomiting over the last 2 days. He denies any postprandial pain. He denies any significant abdominal pain. No diarrhea or constipat ion. No blood in his stool. No fever or chills. No dysuria or hematuria. No sore throat, runny no se, cough, headaches, or dizziness. It was noted during dialysis that patient's blood pressure becam e low and his dialysis had to be terminated because of that both on Thursday as well as yesterday. Review of Systems: Otherwise unremarkable. Past Medical History: COPD, end-stage renal disease, diabetes, hypertension, neuropathy, peripheral vascular disease, iron-deficiency anemia. Past Surgical History: Right great toe amputation. Allergies: INCLUDE SURGICAL TAPE. Social History: He does smoke. Denies any alcohol use. Family History: Significant for hypertension and throat cancer in the mother. Father has hypertensi on and CHF. Brother has colon cancer. Physical Examination: Vital Signs: Stable. Heart rate is slightly elevated at 111, blood pressure is okay is 113/54, he i s afebrile. General: He is awake, alert, and oriented x3. Head and Neck: No evidence of icterus. No neck masses. No JVD. Throat clear. Neck supple. Neuro logic: Cranial nerves 2 through 12 are grossly within normal limits. Chest: Clear. Heart: S1, S2. Abdomen: Soft, nondistended, nontender. Positive bowel sounds. No tenderness in the right upper qu adrant at all. Extremities: IV perfused. Nontender. Neuro: Nonfocal. Laboratory Data: Shows a white count of 13.7 with a left shift, although yesterday it was completely normal. INR is normal 1.03. Chemistry reviewed. His LFTs are normal but on admission the lipase w as elevated little over 500. He had a CT of the abdomen and pelvis, which showed gallstones on the C T. On ultrasound, there was no evidence besides the gallstone. There was no wall thickening. No pe richolecystic fluid. No dilatation of the biliary tree. There was increased echogenicity of the maile er parenchyma without a focal liver lesion. Assessment: A 67-year-old gentleman with multiple medical problems with nausea and vomiting, most li josé secondary to his uremia at this time as he has not been adequately dialyzed. I do think that he may have had some episodes of bit of biliary colic; however, at this time, I think medical managemen t for his uremia should be addressed first and if that is under control, then the patient can be disc harged home on a low-fat renal diet, and he can follow up with me in my office, and when he is medica lly stable, we can discuss options of a cholecystectomy, however at this time, the patient does not h ave acute cholecystitis, and I would recommend medical management and re-consult Surgery p.r.nNiecy VELEZ/MATEUSZ Voice ID: [id number] Report ID: [id number]
[2018-10-28] MEDS: INSULIN GLARGINE 100 UNITS/ML SQ SCH (20:25)
[2018-10-28] MEDS ORDERED: GABAPENTIN 300 MG CAP ONE (20:36)
[2018-10-28] MEDS ORDERED: GABAPENTIN 300 MG CAP PO SCH (21:00)
--- NOTE | 2018-10-28 22:26 | PN ---
Date of Progress Note: 10/28/2018 History: Patient seen and examined. Chart reviewed and case discussed with RN and Dr. Rand. The p atient is still having significant amount of abdominal discomfort, nausea and vomiting, unable to clarisa erate anything past the clear liquid diet. The patient was dialyzed yesterday. Medications: List reviewed. Physical Examination: Vital Signs: Temperature 99.5, heart rate 104, blood pressure 181/53, respirations 18, O2 saturation of 97% on room air. General: Awake, alert, oriented x3, ill-appearing elderly male. CV: S1, S2. Sinus tachycardia. Peripheral pulses present. Respiratory: Moving air well bilaterally. No wheezing. Gastrointestinal: Abdomen is soft, mildly tender to palpation. No rebound or guarding. Bowel sound s positive. Extremities: No clubbing, cyanosis. Trace pedal edema. Neurologic: Nonfocal. Laboratory Data: Sodium 132, potassium 4.4, chloride 95, CO2 of 24, BUN 47, creatinine 10.4, glucose 268, calcium 8.9, total bilirubin 0.7, AST 31, ALT 22, albumin 3.8. WBC 13.7, H and H 12.7 and 37.1 , platelets 214, neutrophils 81%. Ultrasound of the abdomen shows multiple small mobile gallstones w ithout wall thickening or pericholecystic fluid. No duct stones or biliary tree identified. Increas ed echogenicity of the liver parenchyma without a focal liver lesion. Prior CT attenuation values di d not indicate fatty infiltration. The patient could have diffuse hepatic parenchymal disease. [place] elation can be made with liver function studies. Assessment: A 67-year-old male with: 1.Intractable nausea and vomiting. Unclear etiology, may be related to uremia. Pancreatitis was ru led out. CT scan did not show any abnormalities on the pancreas. Ultrasound did show some gallstone s but there is no cholecystitis. The patient has been seen by Surgery. No surgical recommendations at this point. I did touch base with GI, may need to be consulted officially if the patient is still unable to tolerate any clear liquids as he was not able to do today after dialysis tomorrow. We demian l continue with IV antiemetics and keep on clear liquid diet. 2.End-stage renal disease, on hemodialysis. Appreciate Dr. Cadet's input. We will continue dial ysis Thursday, Thursday, Thursday. 3.Hyponatremia, improved. We will continue to monitor. 4.Diabetes mellitus type 2, non-insulin requiring with hyperglycemia. We will adjust insulin siding scale to moderate the patient's blood glucose levels, have been in the high 200s. 5.Abnormal liver parenchyma, unclear etiology. We will check hepatitis panel. The patient does rep ort exposure to Agent Levy. 6.Essential hypertension, not well controlled. Medications have been adjusted. We will continue IV hydralazine. 7.Iron deficiency anemia. We will monitor H and H. No significant drop at this point. 8.Peripheral vascular disease. 9.Deep vein thrombosis prophylaxis addressed. Plan: Hemodialysis in a.m. If no significant improvement in his condition, we will consult GI. /MATEUSZ Voice ID: [id number] Report ID: [id number]
--- NOTE | 2018-10-28 23:08 | P.PN ---
Subjective Date of Service: 10/28/18 Subjective: Improving Pain improved , but still have nausea change fluid to D5 NS as Na is trending doen HD tomorrow diet advanced as per GI Physical Examination - Vital Signs Temperature: 98.8 F Blood Pressure: 169/85 Pulse: 76 Respirations: 24 Pulse Ox (%): 98 - Physical Exam General: Oriented x3, Mild distress HEENT: Atraumatic, Normocephalic Neck: JVD not distended, Without JVD or thyroid abnormality Respiratory: Clear to auscultation bilaterally, Normal air movement Cardiovascular: No edema, Regular rate/rhythm, Normal S1 S2 Gastrointestinal: Normal bowel sounds, Soft and benign Integumentary: No rashes Assessment And Plan - Current Problems (Diagnosis) (1) ESRD (end stage renal disease) Onset Date: 07/19/18 Current Visit: No Status: Acute (2) Nausea and vomiting Current Visit: No Status: Resolved Qualifiers: - Plan ESRD on HD MWF Hd as per schedule renal dose meds nausea and vomiting improved now diet advanced change fluid to D5 NS and hold if tolerate diet possible EGD tomorrow Anemia hold kristi as Hb >11 MBD hold binders if NPO
[2018-10-29] MEDS: HYDRALAZINE HCL 20 MG/ML VIAL IV PRN ×2 (00:12→04:23)
[2018-10-29] MEDS: PROMETHAZINE 25 MG/ML VIAL IV PRN ×2 (05:24→20:31)
[2018-10-29] MEDS: D5 0.9 NS 1,000 ML IV SCH (05:26)
[2018-10-29 06:15] LABS: Absolute Lymphocytes (CBC) 1.7 K/uL (0.7-4.9); Absolute Monocytes 1.1 K/uL (0.1-1.3); Absolute Neutrophil 7.4 K/uL (1.8-8.0); Basophils % 0.3 % (0-1.3); Eosinophils % 2.2 % (0-4.4); Lymphocytes % 16.4 % (15.3-44.8); MPV 7.2 fL (7.6-11.3); Monocytes % 10.7 % (3.3-12.3); RBC Red Blood Cell Count 3.55 M/uL (4.33-5.43)
[2018-10-29 06:46] LABS: Albumin 3.6 g/dL (3.4-5.0); Bilirubin Total 0.9 mg/dL (0.2-1.0); Potassium 4.7 mmol/L (3.5-5.1)
[2018-10-29] MEDS: ONDANSETRON 4 MG/2 ML VIAL IV PRN (07:26)
[2018-10-29] MEDS: INSULIN -REGULAR HUMAN 50 UNIT/0.5 ML ML SQ SCH ×3 (07:30→16:30)
[2018-10-29] MEDS: PANTOPRAZOLE 40 MG INJ IVP SCH (08:40)
[2018-10-29] MEDS ORDERED: NA CHLORIDE 0.9% 1,000 ML ONE (10:11)
[2018-10-29] MEDS ORDERED: LIDOCAINE 1% MPF 5 ML VIAL ONE (10:47)
[2018-10-29] MEDS ORDERED: PROPOFOL 200 MG/20 ML VIAL IV ONE (10:47)
--- NOTE | 2018-10-29 12:54 | P.PN ---
Subjective Date of Service: 10/29/18 Couldnt tolerate diet yesterday S/p EGD today pt is compliant with dialysis , I dont think he is symptoms are due to uremia pt I will arrange for extra treatment tomorrow to see if it will help to ease his symptoms bP fluctuate , will monitor after HD EGD results to follow Physical Examination - Vital Signs Temperature: 97.2 F Blood Pressure: 108/52 Pulse: 92 Respirations: 16 Pulse Ox (%): 96 - Physical Exam General: Oriented x3, Mild distress HEENT: Atraumatic Neck: Supple, Without JVD or thyroid abnormality Respiratory: Clear to auscultation bilaterally, Normal air movement Cardiovascular: No edema, Regular rate/rhythm, Normal S1 S2 Gastrointestinal: Soft and benign, Non-distended Assessment And Plan - Current Problems (Diagnosis) (1) ESRD (end stage renal disease) Onset Date: 07/19/18 Current Visit: No Status: Acute - Plan ESRD on HD MWF Hd today will arrange for extra treatment tomorrow , though I dont think his symptoms are due to uremia renal dose meds nausea and vomiting S/P EGD tomorrow Anemia hold kristi as Hb >11 MBD hold binders if NPO
[2018-10-29] MEDS ORDERED: METOPROLOL TAR 25 MG TAB PO ONE (20:17)
[2018-10-29 20:32] VITALS: BP 154/93
[2018-10-29 20:44] VITALS: TEMP 98.4
--- NOTE | 2018-10-29 21:22 | OP ---
Surgeon: Paul Islas MD Procedure To Be Performed: Esophagogastroduodenoscopy. Performing Physician: Paul Islas M.D. Indication For Procedure: Intractable vomiting. Plan For Anesthesia: Monitored anesthesia care. Complexity: Average. Technique: After obtaining informed consent from the patient and explaining risks and complications which include, but are not limited to bleeding, infection, perforation, and anesthesia complication, the patient was placed in a left lateral position. Sedation was given. From then on, the scope was advanced into the mouth and carefully guided up till the second portion of the duodenum. Subsequentl y the scope gradually was withdrawn while carefully examining the mucosa. Necessary diagnostic maneu vers were done. After the completion of examination, the scope and equipment were withdrawn and the procedure was terminated in a safe manner. Findings: Esophagus: No gross lesion was seen in the upper and mid esophagus. In the distal esopha gary, initially there appeared to be a hint of possible prominent vein. However, on repeat examinatio n, I did not observe that. There was some healing ulceration, that was seen that probably a conseque nce of Gianna-Morelos tear, which the patient may have had due to his persistent retching. Stomach: The whole mucosa of the stomach appeared to be granular with several dispersed erosions. Numerous bi opsies were taken. Duodenum: The bulb and second portion appeared normal. Complications: None. Tolerance To Anesthesia: Excellent. Postoperative Diagnosis: Healing esophagitis, gastritis with erosions. No significant etiology for the patient's symptoms. Of note, there was quite a bit of bile, that had to be suctioned from the ga stric body. Plan: 1.Await pathology results. 2.Continue PPI. 3.We will need repeat EGD for followup of the esophageal finding and to again rule out any prominent veins, that may be present in 6 weeks' time. We will need to evaluate for other etiologies for naus ea and vomiting, which may be related to the patient's renal issues. Also known to have gallstones; therefore, that avenue can be evaluated if the patient has no response to the symptoms even after katarzyna lysis. Follow up in the GI clinic in 2-3 weeks. US/MATEUSZ Voice ID: [id number] Report ID: [id number]
[2018-10-29 22:42] VITALS: O2SAT 96
--- NOTE | 2018-10-30 07:15 | EKG ---
Test Date: 2018-10-29 Test Time: 20:09:37 Line Maintainer: RT MEASUREMENT RESULTS: Intervals: Rate: 146 MI: QRSD: 94 QT: 356 QTc: 554 [place]: P: 252 MI: QRS: 23 T: -65 INTERPRETIVE STATEMENTS: Atrial flutter with 2:1 AV conduction Inferior infarct, age undetermined Abnormal ECG Compared to ECG 10/27/2018 05:32:57 Sinus tachycardia no longer present Myocardial infarct finding still present Electronically Signed On 10-30-18 07:14:28 ABRASIVE MIXER by Tyrell Fountain
--- NOTE | 2018-10-30 07:15 | EKG ---
Test Date: 2018-10-29 Test Time: 20:47:17 Senior Economist: 33 MEASUREMENT RESULTS: Intervals: Rate: 109 IA: 176 QRSD: 108 QT: 348 QTc: 468 [place]: P: 43 IA: 176 QRS: 95 T: -29 INTERPRETIVE STATEMENTS: Sinus tachycardia Inferior infarct, age undetermined Anterolateral infarct, age undetermined Abnormal ECG Compared to ECG 10/29/2018 20:09:37 Atrial flutter no longer present Myocardial infarct finding still present Electronically Signed On 10-30-18 07:13:51 BOTTLING ROOM WORKER by Tyrell Fountain
--- NOTE | 2018-10-30 15:29 | DS ---
Date of Discharge: 10/29/2018 Blade Boner: Dr. Rand, General Surgery, and Dr. Islas with GI. Procedures: Esophagogastroduodenoscopy on 10/29/2018. Admitting Diagnoses: 1.Intractable nausea and vomiting. 2.End-stage renal disease, on hemodialysis. 3.Hyponatremia. 4.Hypochloremia. 5.Diabetes mellitus type 2, insulin-requiring with chronic kidney disease, on dialysis. 6.Hypertension, uncontrolled. 7.Iron deficiency anemia. 8.Peripheral vascular disease. Discharge Diagnoses: 1.Intractable nausea and vomiting, likely secondary to uremia, resolved. 2.End-stage renal disease, on hemodialysis. 3.Hyponatremia, improving. 4.Diabetes mellitus type 2 lum-knfsgpy-jomgicafd with hyperglycemia. 5.Uncontrolled hypertension. 6.Abnormal liver parenchyma, unclear etiology. Hepatitis panel is pending. The patient will need o utpatient followup with GI for further elucidation of his etiology, will likely need liver biopsy. 7.Iron deficiency anemia. 8.Peripheral vascular disease. Hospital Course: The patient is a 67-year-old male, came in with intractable nausea and vomiting. T he patient was thought to be uremic, was unable to tolerate his diet. The patient did have some low sodium level. He was hypokalemic and hypochloremic. The patient was sent to dialysis and had some i mprovement, however, again had some nausea and vomiting, and unable to tolerate his diet. CT scan of the abdomen was done, which was negative other than for cholelithiasis. Ultrasound of the abdomen w as done to rule out cholecystitis. The patient did not have any gallbladder wall thickening or peric holecystic fluid. There were multiple small mobile gallstones present. There was no biliary tree di latation. The patient did have some abnormal liver parenchyma seen on the ultrasound. Dr. Giorgi rossi h General Surgery was consulted, and he did not recommend any surgical intervention at this time. Re commended outpatient followup for elective cholecystectomy. He felt that this was secondary to uremi a. The patient was also seen by his diesel engine operator, Dr. Cadet and Dr. Pichardo, and his dialysis w as continued. The patient then had an EGD done by Dr. Islas with GI for intractable nausea and vo miting. He found some gastritis and erosions. He was started on IV PPI. The patient was then clear ed for discharge. He was able to tolerate a bland diet. Followup: Follow up with primary care physician in 2-3 days. Follow up with surgeon, Dr. Rand in 2 -4 weeks for elective cholecystectomy. Follow up with GI, Dr. Islas in 2 weeks for repeat EGD and to further workup his liver disease. The patient will likely need a biopsy. Return to ER for worse rosetta condition. Diet: Renal bland diet for now. Activity: As tolerated. Medications: As per medication reconciliation list. Trial of Protonix b.i.d. for the next 30 days. The patient will again need repeat EGD and follow up with PCP and GI for continued use of PPI long-t erm. Physical Examination: General: Awake, alert, oriented x3, in no acute distress. Obese male. CV: S1, S2. No murmurs. Respiratory: Moving air well bilaterally. No wheezing. Gastrointestinal: Abdomen is soft, nontender, nondistended. Positive bowel sounds. Extremities: No clubbing, cyanosis, or edema. Neurologic: Nonfocal. SA/MODL Voice ID: [id number] Report ID: [id number]
[2018-11-03 21:11] LABS: HBsAG Nonreactive (Nonreactive); Hepatitis A IgM Antibody Nonreactive
== END 2018-10-29 23:30 | disposition home or self-care (01) ==
LOC: ER 05:26 → ERHOLD 08:12 → 4TH 10:33
PROVIDERS: ADMIT Family Medicine; ATTEND Family Medicine
PROC: 0DB68ZX Excision of Stomach, Via Natural or Artificial Opening Endoscopic, Diagnostic (ICD-10-PCS; principal; 2018-10-29 10:30)
DX: R11.2 Nausea with vomiting, unspecified (principal); I12.0 Hypertensive chronic kidney disease with stage 5 chronic kidney disease or end stage renal disease; E11.22 Type 2 diabetes mellitus with diabetic chronic kidney disease; N18.6 End stage renal disease; Z99.2 Dependence on renal dialysis; I73.9 Peripheral vascular disease, unspecified; E78.5 Hyperlipidemia, unspecified; Z89.429 Acquired absence of other toe(s), unspecified side; K20.9 Esophagitis, unspecified; K29.70 Gastritis, unspecified, without bleeding; E87.1 Hypo-osmolality and hyponatremia; D50.9 Iron deficiency anemia, unspecified; K80.20 Calculus of gallbladder without cholecystitis without obstruction; R93.2 Abnormal findings on diagnostic imaging of liver and biliary tract
CPT/HCPCS: 93005 ×3; 85025 ×3; 80048; 36415 ×2; 83735; 88312 ×2; 85610; 82962 ×12; 80076; 88305; 84484; 83690; 80053 ×2; 83880; 80074; 74176; 71045; 90935 ×2; 76700; 94760 ×5; 99285; 43239; J0360 ×6; J2704; J2550 ×8; C9113 ×5; J7030 ×2; J2405 ×10; G0378 ×2

== ENCOUNTER 2020-05-17 11:16 | Emergency (ER) | payer OTHER ==
--- OUTSIDE RECORDS SUMMARY | 2020-05-17 11:17 | XMS REPORT | Continuity of Care Document ---
:1950 Author Organization [facility] t Address [address] [place] [id number] Care Team Providers Name Role Phone DR BECKIE Attending Clinician Unavailable DR BECKIE Admitting Clinician Unavailable Problems This patient has no known problems. Allergies, Adverse Reactions, Alerts This patient has no known allergies or adverse reactions. Medications This patient has no known medications. Procedures This patient has no known procedures. Encounters Start End Encounter Admission Attending Care Care Encounter Source Date/Time Date/Time Type Type Clinicians Facility Department ID 2017-01-23 [id number] 08:00:00 [facility] Results Test Description Test Time Test Comments Results Result [facility] e Comments NM GASTRIC 2017-01-27 Examination: Nuclear EMPTYING STUDY W 22:13:14 medicine gastric ISOTOPE emptying studyLocation code: [id number]: NoneDiscussion:Clinical history is remarkable for nausea, decreased appetite. After the oraladministration of 1.6 mCi of technetium 99m labeled sulfur colloid scrambledegg, dynamic UKRAINIAN imaging is performed. Time to one half emptying is 27 minutes,rapid emptying.Impression:1. No evidence of gastroparesis. The emptying time slightly rapid.
[2020-05-17] MEDS ORDERED: VANCOMYCIN/NS 1 gm 1 GM/250 ML BAG IV ONE (12:30)
[2020-05-17] MEDS ORDERED: ACETAMINOPHEN 500 MG TAB ONE (12:30)
[2020-05-17] MEDS ORDERED: FUROSEMIDE 40 MG/4 ML VIAL ONE (12:30)
[2020-05-17] MEDS ORDERED: HYDRALAZINE HCL 20 MG/ML VIAL ONE (12:30)
[2020-05-17] MEDS ORDERED: CEFEPIME/SWI 2gm 2 GM/20 ML SYR IV ONE (12:30)
[2020-05-17 12:39] LABS: Absolute Lymphocytes (CBC) 1.4 K/uL (0.7-4.9); Basophils % 0.6 % (0-1.3); Hematocrit 29.1 % (39.6-49.0); Lymphocytes % 9.4 % (15.3-44.8); MPV 7.8 fL (7.6-11.3); RBC Red Blood Cell Count 2.93 M/uL (4.33-5.43)
[2020-05-17 13:21] LABS: Urine Blood 1+ (NEG); Urine Glucose 2+ (NEG); Urine Protein 3+ (NEG); Urine Specific Gravity 1.025 (1.005-1.030)
[2020-05-17 13:42] LABS: Urine Bacteria 20-50 /HPF (NONE SEEN)
[2020-05-17 13:43] LABS: Urine Culture Reflex Order NOT NEEDED
[2020-05-17 13:50] LABS: Albumin 3.1 g/dL (3.4-5.0); Bilirubin Direct 0.2 mg/dL (0-0.2); Bilirubin Total 0.6 mg/dL (0.2-1.0); C-Reactive Protein 73.5 mg/L (<3.00); CKMB Creatine Kinase MB 3.1 ng/mL (0.3-3.6); Potassium 4.7 mmol/L (3.5-5.1); Protein, Total 8.3 g/dL (6.4-8.2); Troponin (Emerg Dept Use Only) 0.02 ng/mL (0.0-0.045)
[2020-05-17] MEDS ORDERED: METHYLPREDNISOLONE 125 MG INJ ONE (14:01)
[2020-05-17] MEDS ORDERED: IPRATROPIUM BROM 0.5MG/2.5ML ONE (14:02)
[2020-05-17] MEDS ORDERED: ALBUTEROL 2.5 MG/3 ML NEB SOL ONE (14:02)
--- NOTE | 2020-05-17 14:18 | RAD REPORT ---
EXAM DESCRIPTION: Barbara Single View05/17/2020 1:30 pm CLINICAL HISTORY: Shortness of breath COMPARISON: 2019 FINDINGS: Moderate consolidation right lung with small pleural effusion The left lung appears clear of acute infiltrate. The heart remains enlarged IMPRESSION: Moderate consolidation right lung probably pneumonia. This should be followed until it h as cleared to help exclude post obstructive process/underlying mass
--- NOTE | 2020-05-17 14:55 | ER ---
Nurse's Notes [facility] Name: Felipe Angelo Age: 69 yrs Sex: Male : 1950 Arrival Date: 05/17/2020 Time: 11:36 Bed 17 Private MD: Diagnosis: Chronic kidney disease (CKD);Severe sepsis;Pneumonia due to other specified bacteria;Traumatic subdural hemorrhage without loss of consciousness;Urinary tract infection, site not specified;Combined systolic (congestive) and diastolic (congestive) heart failure Presentation: 05/17 11:37 Chief complaint: EMS states: Pt is a dialysis pt scheduled MWF, last dialysis was ca1 Thursday05/11/2020. At the same time he had a Flu shot, then he started to get sick which the reported also happened last year after he got the Flu shot. says, usually the pt is able to move around on his own but in the last couple of days has been weak, he ran a fever, urine smells strong and is a little bit altered (AMS). Upon arrival on scene, SBP 200s, HR 80s, Temp 100.4, 86% sats on RA. G20 R Hand initiated. Coronavirus screen: Client denies travel out of the [place] in the last 14 days. fatigue, fever, Client presents with at least one sign or symptom that may indicate coronavirus-19. Standard/surgical mask placed on the client. Provider contacted for isolation considerations. Ebola Screen: Patient negative for fever greater than or equal to 101.5 degrees Fahrenheit, and additional compatible Ebola Virus Disease symptoms Patient denies exposure to infectious person. Patient denies travel to an Ebola-affected area in the 21 days before illness onset. No symptoms or risks identified at this time. Initial Sepsis Screen: Does the patient meet any 2 criteria? RR > 20 per min. Temp <36.0*C (96.8*F)) or > 38.3*C (100.9*F). Altered Mental Status. Yes Does the patient have a suspected source of infection? Yes: Dysuria/Frequency/Urgency/UTI If YES to both, name of provider notified: Kenrick DEL TORO. Risk Assessment: Do you want to hurt yourself or someone else? Patient reports no desire to harm self or others. Onset of symptoms was May 17, 2020. 11:37 Method Of Arrival: EMS: [facility] ca1 11:37 Acuity: SINDHU 2 ca1 Triage Assessment: 11:37 GI: Pt is actively vomiting undigested food. ca1 11:37 General: Appears in no apparent distress. uncomfortable, Behavior is calm, cooperative, ca1 appropriate for age. Pain: Denies pain. Historical: - Allergies: 12:37 Tape; ca1 - PMHx: 12:37 Diabetes - IDDM; Dialysis; Hyperlipidemia; Hypertension; Renal Disease; ca1 - PSHx: 12:37 Left arm fistula; ca1 - Immunization history:: Adult Immunizations up to date. - Social history:: Smoking status: Patient denies any tobacco usage or history of. Screenin:40 Abuse screen: Denies threats or abuse. Denies injuries from another. Nutritional ca1 screening: No deficits noted. Tuberculosis screening: No symptoms or risk factors identified. Fall Risk Fall in past 12 months (25 points). Secondary diagnosis (15 points) impaired mobility, IV access (20 points). Gait- Weak (10 pts.). Total Spence Fall Scale indicates High Risk Score (45 or more points). Fall prevention measures have been instituted. Side Rails Up X 2 As available patient and family educated on Fall Prevention Program and Strategies. Assessment: 11:40 General: Appears in no apparent distress. unkempt, Behavior is calm, cooperative, ca1 appropriate for age, drowsy. Pain: Denies pain. Neuro: Level of Consciousness is awake, obeys commands, confused, Oriented to person, place, situation. Cardiovascular: Heart tones S1 S2 present Capillary refill < 3 seconds Patient's skin is warm and dry. Rhythm is sinus rhythm. Respiratory: Airway is patent Respiratory effort is even, unlabored, Respiratory pattern is regular, symmetrical, tachypnea Breath sounds with wheezes in right upper lobe and left upper lobe. GI: Abdomen is round non-distended, Pt is actively vomiting undigested food, Bowel sounds present X 4 quads. Abd is soft and non tender X 4 quads. : Urine is cloudy. EENT: No signs and/or symptoms were reported regarding the EENT system. Derm: Skin is intact, is healthy with good turgor, Skin is pink, warm \T\ dry. Musculoskeletal: Amputation of right first toe. Circulation, motion, and sensation intact. Capillary refill < 3 seconds, Swelling present in right foot and right ankle and right midcalf and left foot and left ankle and left midcalf. 12:39 Reassessment: Patient appears in no apparent distress at this time. No changes from ca1 previously documented assessment. Patient and/or family updated on plan of care and expected duration. Pain level reassessed. Patient is alert, oriented x 3, equal unlabored respirations, skin warm/dry/pink. 13:31 Reassessment: Patient appears in no apparent distress at this time. No changes from ca1 previously documented assessment. Patient is alert, oriented x 3, equal unlabored respirations, skin warm/dry/pink. 14:21 Reassessment: Patient appears in no apparent distress at this time. No changes from ca1 previously documented assessment. Patient and/or family updated on plan of care and expected duration. Pain level reassessed. Patient is alert, oriented x 3, equal unlabored respirations, skin warm/dry/pink. 14:40 Reassessment: Spoke to and updated with pt condition. states, pt fell in the [facility] bath 2 nights ago, hit head on the floor, denies LOC. Notified provider. CT head ordered. 14:55 Reassessment: PT in CT. ca1 15:31 Reassessment: Patient appears in no apparent distress at this time. Patient and/or ca1 family updated on plan of care and expected duration. Pain level reassessed. Patient is alert, oriented x 3, equal unlabored respirations, skin warm/dry/pink. 16:12 Reassessment: Called report to JACIEL Negrete at [facility]. [facility] 16:12 Reassessment: Patient appears in no apparent distress at this time. No changes from ca1 previously documented assessment. 17:09 Reassessment: Patient appears in no apparent distress at this time. No changes from ca1 previously documented assessment. 05/18 14:50 Reassessment: Called [facility] and informed Flip RN primary nurse of sv pt's COVID-19 result. Results to be faxed to the unit. Vital Signs: 05/17 11:37 BP 218 / 87; Pulse 73; Resp 24 S; Temp 99.6(A); Pulse Ox 84% on R/A; Weight 97.52 kg [facility] (R); Height 6 ft. 0 in. (182.88 cm) (R); Pain 0/10; 11:38 Pulse Ox 94% on 4 lpm NC; ca1 12:39 BP 194 / 87; Pulse 80; Resp 23; Pulse Ox 94% on 4 lpm NC; ca1 13:38 BP 169 / 72; Pulse 85; Resp 21 S; Temp 98.8(A); Pulse Ox 92% on 4 lpm NC; ca1 13:38 BP 169 / 72; ca1 14:10 BP 195 / 80; Pulse 89; Resp 19; Pulse Ox 100% on Nebulizer Mask; ca1 14:21 BP 176 / 81; Pulse 99; Resp 24 S; Pulse Ox 96% on Nebulizer Mask; ca1 15:02 BP 181 / 84; Pulse 108; Resp 18 S; Pulse Ox 9% on 4 lpm NC; ca1 15:20 BP 152 / 74; Pulse 105; Resp 19 S; Pulse Ox 93% on 4 lpm NC; ca1 16:03 BP 174 / 78; Pulse 101; Resp 15 S; Pulse Ox 98% on 4 lpm NC; ca1 16:12 BP 157 / 89; Pulse 100; Resp 17 S; Pulse Ox 94% on 4 lpm NC; ca1 17:09 BP 159 / 79; Pulse 97; Resp 18 S; Pulse Ox 93% on 4 lpm NC; ca1 11:37 Body Mass Index 29.16 (97.52 kg, 182.88 cm) ca1 ED Course: 11:36 Patient arrived in ED. em1 11:36 Russell Cannon MD is Attending Physician. rn 11:37 Arm band placed on right wrist. ca1 11:40 Patient has correct armband on for positive identification. Placed in gown. Bed in low ca1 position. Call light in reach. Side rails up X2. monitoring analyst on. Pulse ox on. NIBP on. 11:40 No provider procedures requiring assistance completed. Maintain EMS IV. Dressing ca1 intact. Good blood return noted. Site clean \T\ dry. Gauge \T\ site: 20G R hand. 11:43 Kenrick Qureshi PA is PHCP. jr8 11:50 Frazier cath inserted, using sterile technique, 16 Fr., by ED staff, balloon inflated, to ca1 gravity drainage, urine specimen collected. returned cloudy urine. Patient tolerated well. by JACIEL Flood. 12:07 Ellen Ureña RN is Primary Nurse. ca1 12:35 Initial lab(s) drawn, by ED staff, sent to lab. Inserted saline lock: 22 gauge in right ca1 wrist, using aseptic technique. ,using aseptic technique. by JACIEL Flood Blood collected. 12:37 Triage completed. ca1 13:29 Chest Single View XRAY In Process Unspecified. EDMS 14:24 Notified Nurse Practitioner and/or Physician Sr. Manager of a critical lab result(s), ca1 Crea 13.7. 14:53 Leilani Mcclure MD is Hospitalizing Provider. jr8 15:07 CT Head Brain wo Cont In Process Unspecified. EDMS 17:09 Patient transferred, IV remains in place. ca1 Administered Medications: 12:18 Drug: Acetaminophen 1000 mg Route: PO; ca1 13:00 Follow up: Response: No adverse reaction; Temperature is decreased ca1 12:20 Drug: hydrALAZINE 10 mg Route: IV; Rate: calculated rate; Site: right hand; ca1 13:38 Follow up: BP 169 / 72; Response: No adverse reaction; Blood pressure is lowered; IV ca1 Status: Completed infusion 12:22 Drug: Lasix 40 mg Route: IVP; Site: right hand; ca1 13:37 Follow up: Urine output 400 ml; Response: No adverse reaction; Blood pressure is loweredca1 13:35 Drug: Cefepime 2 grams Route: IVPB; Rate: 200 ml/hr; Infused Over: 30 mins; Site: right ca1 wrist; 14:00 Follow up: Response: No adverse reaction; IV Status: Completed infusion ca1 13:37 Drug: vancoMYCIN 1 grams Route: IVPB; Infused Over: 2 hrs; Site: right wrist; ca1 15:00 Follow up: Response: No adverse reaction; IV Status: Completed infusion ca1 13:48 Drug: Albuterol - atroVENT (3:1) (2.5 mg - 0.5 mg) 3 ml Route: Nebulizer; ca1 16:19 Follow up: Response: No adverse reaction; Marked relief of symptoms ca1 13:49 Drug: SOLU-Medrol 125 mg Route: IVP; Site: right wrist; ca1 16:19 Follow up: Response: No adverse reaction; Marked relief of symptoms ca1 14:55 Not Given (Physician Discretion): NS 0.9% 500 ml IV at bolus once jr8 Output: 13:37 Urine: 400ml; Total: 400ml. ca1 Outcome: 14:54 Decision to Hospitalize by Provider. jr8 16:02 ER care complete, transfer ordered by . jr8 17:09 Transferred by ground EMS to [facility], Transfer form completed. X-rays sent ca1 w/ patient. 17:09 Condition: stable 17:09 Instructed on the need for transfer. 17:10 Patient left the ED. ca1 Signatures: Dispatcher [employer] EDMS Nola Knutson RN RN sv Nieto, Roman, MD MD rn Martinez, Kobe em1 Kenrick Qureshi PA PA jr8 Ellen Ureña RN RN ca1 Corrections: (The following items were deleted from the chart) 12:37 12:37 GI: Pt is actively vomiting undigested food, ca1 ca1 13:39 12:39 General: ca1 ca1 14:10 12:39 BP 194 / 87; Pulse 80bpm; Resp 23bpm; Pulse Ox 94% RA; ca1 ca1 14:10 13:38 BP 169 / 72; Pulse 85bpm; Resp 21bpm; Spontaneous; Pulse Ox 92% 4 lpm Nasal ca1 Cannula; ca1 14:37 11:40 Cardiovascular: Heart tones S1 S2 present Capillary refill < 3 seconds Patient's ca1 skin is warm and dry. Rhythm is ca1 16:15 11:40 General: Appears in no apparent distress. unkempt, Behavior is calm, cooperative, ca1 appropriate for age, ca1 16:15 11:40 Neuro: Level of Consciousness is awake, alert, obeys commands, Oriented to ca1 person, place, situation, ca1 16:17 14:21 Reassessment: Patient appears in no apparent distress at this time. Patient ca1 and/or family updated on plan of care and expected duration. Pain level reassessed. Patient is alert, oriented x 3, equal unlabored respirations, skin warm/dry/pink. ca1 16:17 15:31 Reassessment: Patient appears in no apparent distress at this time. Patient ca1 and/or family updated on plan of care and expected duration. Pain level reassessed. Patient is alert, oriented x 3, equal unlabored respirations, skin warm/dry/pink. ca1 17:11 11:40 Musculoskeletal: Circulation, motion, and sensation intact. Capillary refill < 3 ca1 seconds, ca1 17:12 11:40 Musculoskeletal: Amputation of right first toe. Circulation, motion, and ca1 sensation intact. Capillary refill < 3 seconds, ca1
--- NOTE | 2020-05-17 14:55 | EDPHYS ---
Physician Documentation [facility] Name: Felipe Angelo Age: 69 yrs Sex: Male : 1950 Arrival Date: 05/17/2020 Time: 11:36 Bed 17 Private MD: ED Physician Russell Cannon HPI: 05/17 14:39 This 69 yrs old Male presents to ER via EMS with complaints of Shortness of jr8 breath and fever. 14:39 The patient has shortness of breath at rest. Onset: The symptoms/episode began/occurred jr8 gradually, 3 day(s) ago. Duration: The symptoms are continuous. The patient's shortness of breath is aggravated by walking. Associated signs and symptoms: Pertinent positives: non-productive cough, fever, general weakness . Severity of symptoms: At their worst the symptoms were moderate in the emergency department the symptoms are unchanged. The patient has not experienced similar symptoms in the past. The patient has not recently seen a physician. 14:43 Patient stated that he has not felt well for the past few days. Running fever and weak. jr8 Stated that he started to become acute short of breath today. Has missed two sessions of dialysis as well . Historical: - Allergies: 12:37 Tape; ca1 - PMHx: 12:37 Diabetes - IDDM; Dialysis; Hyperlipidemia; Hypertension; Renal Disease; ca1 - PSHx: 12:37 Left arm fistula; ca1 - Immunization history:: Adult Immunizations up to date. - Social history:: Smoking status: Patient denies any tobacco usage or history of. ROS: 14:43 Eyes: Negative for injury, pain, redness, and discharge, ENT: Negative for injury, jr8 pain, and discharge, Neck: Negative for injury, pain, and swelling, Cardiovascular: Negative for chest pain, palpitations, and edema, Abdomen/GI: Negative for abdominal pain, nausea, vomiting, diarrhea, and constipation, Back: Negative for injury and pain, MS/Extremity: Negative for injury and deformity, Skin: Negative for injury, rash, and discoloration, Neuro: Negative for headache, weakness, numbness, tingling, and seizure. 14:43 Constitutional: Positive for fatigue, fever, malaise. 14:43 Respiratory: Positive for cough, dyspnea on exertion, shortness of breath. Exam: 14:43 Eyes: Pupils equal round and reactive to light, extra-ocular motions intact. Lids and jr8 lashes normal. Conjunctiva and sclera are non-icteric and not injected. Cornea within normal limits. Periorbital areas with no swelling, redness, or edema. ENT: Nares patent. No nasal discharge, no septal abnormalities noted. Tympanic membranes are normal and external auditory canals are clear. Oropharynx with no redness, swelling, or masses, exudates, or evidence of obstruction, uvula midline. Mucous membranes moist. Neck: Trachea midline, no thyromegaly or masses palpated, and no cervical lymphadenopathy. Supple, full range of motion without nuchal rigidity, or vertebral point tenderness. No Meningismus. 14:43 Cardiovascular: Rate: normal, Rhythm: regular, Pulses: Pulses are 2+ in right radial artery and left radial artery. Heart sounds: S1, normal, S2, normal, Edema: 2+ edema to level of left midcalf, left ankle, left foot, right midcalf, right ankle and right foot. 14:43 Respiratory: mild respiratory distress is noted, Respirations: tachypnea, that is mild, Breath sounds: rhonchi, that are moderate, are located in both bases, wheezing: expiratory that is moderate, is heard diffusely, Respiratory rate: 24 Vital Signs: 11:37 BP 218 / 87; Pulse 73; Resp 24 S; Temp 99.6(A); Pulse Ox 84% on R/A; Weight 97.52 kg ca1 (R); Height 6 ft. 0 in. (182.88 cm) (R); Pain 0/10; 11:38 Pulse Ox 94% on 4 lpm NC; ca1 12:39 BP 194 / 87; Pulse 80; Resp 23; Pulse Ox 94% on 4 lpm NC; ca1 13:38 BP 169 / 72; Pulse 85; Resp 21 S; Temp 98.8(A); Pulse Ox 92% on 4 lpm NC; ca1 13:38 BP 169 / 72; ca1 14:10 BP 195 / 80; Pulse 89; Resp 19; Pulse Ox 100% on Nebulizer Mask; ca1 14:21 BP 176 / 81; Pulse 99; Resp 24 S; Pulse Ox 96% on Nebulizer Mask; ca1 15:02 BP 181 / 84; Pulse 108; Resp 18 S; Pulse Ox 9% on 4 lpm NC; ca1 15:20 BP 152 / 74; Pulse 105; Resp 19 S; Pulse Ox 93% on 4 lpm NC; ca1 16:03 BP 174 / 78; Pulse 101; Resp 15 S; Pulse Ox 98% on 4 lpm NC; ca1 16:12 BP 157 / 89; Pulse 100; Resp 17 S; Pulse Ox 94% on 4 lpm NC; ca1 17:09 BP 159 / 79; Pulse 97; Resp 18 S; Pulse Ox 93% on 4 lpm NC; ca1 11:37 Body Mass Index 29.16 (97.52 kg, 182.88 cm) ca1 MDM: 11:36 Patient medically screened. rn 14:43 Data reviewed: vital signs, nurses notes, lab test result(s), EKG, radiologic studies, jr8 plain films. Data interpreted: Pulse oximetry: on room air is 84 %. Interpretation: hypoxia. Counseling: I had a detailed discussion with the patient and/or guardian regarding: the historical points, exam findings, and any diagnostic results supporting the discharge/admit diagnosis, lab results, radiology results, the need for further work-up and treatment in the hospital. 14:55 ED course: Patient with ESRD with fulminant overload and CHF. Restricting fluids for jr8 now due to acute overload pattern and on dialysis. 15:58 ED course: Patient found to have bilateral subdural hematomas noted after cat scanning jr8 his head when the patients had notified us of the frequent falls recently secondary to his general weakness. [facility] contacted at that time since it was trauma related. Accepted Patient under. Dr. Chandler to ED. 05/17 11:45 Order name: Urine Culture 05/17 11:45 Order name: C-Reactive Protein; Complete Time: 14:32 05/17 11:45 Order name: Basic Metabolic Panel; Complete Time: 14:32 05/17 11:45 Order name: Blood Culture Adult (2) 05/17 11:45 Order name: CBC with Diff; Complete Time: 12:47 05/17 11:45 Order name: Ckmb; Complete Time: 14:32 05/17 11:45 Order name: CPK; Complete Time: 14:32 05/17 11:45 Order name: Lactate; Complete Time: 13:11 05/17 11:45 Order name: LFT's; Complete Time: 14:32 05/17 11:45 Order name: Lipase; Complete Time: 14:32 05/17 11:45 Order name: Procalcitonin; Complete Time: 14:07 05/17 11:45 Order name: Protime (+inr); Complete Time: 16:14 05/17 11:45 Order name: Ptt, Activated; Complete Time: 16:14 05/17 11:45 Order name: Troponin (emerg Dept Use Only); Complete Time: 14:32 05/17 11:45 Order name: Urine Microscopic Only; Complete Time: 13:52 8 05/17 12:08 Order name: COVID-19 [facility] 05/17 12:08 Order name: CORONAVIRUS EDW[facility] 05/17 12:22 Order name: Glucose, Ancillary Testing; Complete Time: 12:27 [facility] 05/17 13:02 Order name: Urine Dipstick--Ancillary (enter results); Complete Time: 13:25 em1 05/17 14:58 Order name: BNP; Complete Time: 16:14 05/17 11:45 Order name: Cath; Complete Time: 12:44 05/17 11:45 Order name: Chest Single View XRAY; Complete Time: 14:20 05/17 11:45 Order name: Accucheck; Complete Time: 12:44 05/17 11:45 Order name: Cardiac monitoring; Complete Time: 12:44 05/17 11:45 Order name: EKG - Nurse/Tech; Complete Time: 12:44 05/17 11:45 Order name: IV Saline Lock - Large Bore; Complete Time: 12:44 05/17 11:45 Order name: Labs collected and sent; Complete Time: 12:44 05/17 11:45 Order name: O2 Per Protocol; Complete Time: 12:44 05/17 11:45 Order name: O2 Sat Monitoring; Complete Time: 12:44 05/17 11:45 Order name: Urine Dipstick-Ancillary (obtain specimen); Complete Time: 12:55 05/17 14:27 Order name: EKG Electrocardiogram [facility] 05/17 14:42 Order name: CT Head Brain wo Cont; Complete Time: 15:37 05/17 15:05 Order name: CONS Physician Consult EDMS Administered Medications: 12:18 Drug: Acetaminophen 1000 mg Route: PO; ca1 13:00 Follow up: Response: No adverse reaction; Temperature is decreased ca1 12:20 Drug: hydrALAZINE 10 mg Route: IV; Rate: calculated rate; Site: right hand; ca1 13:38 Follow up: BP 169 / 72; Response: No adverse reaction; Blood pressure is lowered; IV ca1 Status: Completed infusion 12:22 Drug: Lasix 40 mg Route: IVP; Site: right hand; ca1 13:37 Follow up: Urine output 400 ml; Response: No adverse reaction; Blood pressure is loweredca1 13:35 Drug: Cefepime 2 grams Route: IVPB; Rate: 200 ml/hr; Infused Over: 30 mins; Site: right ca1 wrist; 14:00 Follow up: Response: No adverse reaction; IV Status: Completed infusion ca1 13:37 Drug: vancoMYCIN 1 grams Route: IVPB; Infused Over: 2 hrs; Site: right wrist; ca1 15:00 Follow up: Response: No adverse reaction; IV Status: Completed infusion ca1 13:48 Drug: Albuterol - atroVENT (3:1) (2.5 mg - 0.5 mg) 3 ml Route: Nebulizer; ca1 16:19 Follow up: Response: No adverse reaction; Marked relief of symptoms ca1 13:49 Drug: SOLU-Medrol 125 mg Route: IVP; Site: right wrist; ca1 16:19 Follow up: Response: No adverse reaction; Marked relief of symptoms ca1 14:55 Not Given (Physician Discretion): NS 0.9% 500 ml IV at bolus once jr8 Disposition: 17:34 Co-signature as Attending Physician, Russell Cannon MD. rn Disposition: 05/17/20 16:02 Transfer ordered to [facility]. Diagnosis are Chronic kidney disease (CKD), Severe sepsis, Pneumonia due to other specified bacteria, Traumatic subdural hemorrhage without loss of consciousness, Urinary tract infection, site not specified, Combined systolic (congestive) and diastolic (congestive) heart failure. - Reason for transfer: Higher level of care. - Accepting physician is Dr. Chandler. - Condition is Fair. - Problem is new. - Symptoms have improved. Signatures: Dispatcher [employer] EDMS Russell Cannon MD MD rn Roszak, Josh, PA PA jr8 Ellen Ureña RN RN ca1 Corrections: (The following items were deleted from the chart) 14:55 14:54 Hospitalization Ordered by Leilani Mcclure MD for Inpatient Admission. Preliminary jr8 diagnosis is End stage renal disease; Acute combined systolic (congestive) and diastolic (congestive) heart failure; Severe sepsis; Pneumonia due to other specified bacteria. Bed requested for Telemetry/MedSurg (Inpatient). Status is Inpatient Admission. Condition is Fair. Problem is new. Symptoms have improved. jr8 15:05 14:55 05/17/2020 14:54 Hospitalization Ordered by Leilani Mcclure MD for Inpatient jr8 Admission. Preliminary diagnosis is End stage renal disease; Acute combined systolic (congestive) and diastolic (congestive) heart failure; Severe sepsis; Pneumonia due to other specified bacteria; Urinary tract infection, site not specified. Bed requested for Telemetry/MedSurg (Inpatient). Status is Inpatient Admission. Condition is Fair. Problem is new. Symptoms have improved. jr8 15:10 15:05 CONS Physician Consult ordered. EDMS EDMS 15:10 15:05 CBC with Automated Diff ordered. EDMS EDMS 15:10 15:05 CBC with Automated Diff ordered. EDMS EDMS 15:10 15:05 Comprehensive Metabolic Panel ordered. EDMS EDMS 15:10 15:05 Comprehensive Metabolic Panel ordered. EDMS EDMS 15:10 15:05 Lactate ordered. EDMS EDMS 15:10 15:05 Lactate ordered. EDMS EDMS 15:10 15:05 Lipid Profile ordered. EDMS EDMS 15:10 15:05 Lipid Profile ordered. EDMS EDMS 15:10 15:05 Magnesium ordered. EDMS EDMS 15:10 15:05 Magnesium ordered. EDMS EDMS 15:10 15:05 NT PRO-BNP ordered. EDMS EDMS 15:10 15:05 NT PRO-BNP ordered. EDMS EDMS 15:10 15:05 Phosphorus ordered. EDMS EDMS 15:10 15:05 Phosphorus ordered. EDMS EDMS 15:10 15:05 Protime (+INR) ordered. EDMS EDMS 15:10 15:05 Protime (+INR) ordered. EDMS EDMS 15:11 15:05 PTT, Activated Partial Thromb ordered. EDMS EDMS 15:11 15:05 PTT, Activated Partial Thromb ordered. EDMS EDMS 15:11 15:[address] [facility] EDMS 15:11 15:05 [address] [facility] EDMS 16:16 16:02 05/17/2020 16:02 Transfer ordered to [facility]. Diagnosis is jr8 Chronic kidney disease (CKD); Severe sepsis; Pneumonia due to other specified bacteria; Traumatic subdural hemorrhage without loss of consciousness; Urinary tract infection, site not specified. Reason for transfer: Higher level of care. Accepting physician is Dr. Chandler. Condition is Fair. Problem is new. Symptoms have improved. jr8 17:10 16:16 05/17/2020 16:02 Transfer ordered to [facility]. Diagnosis is ca1 Chronic kidney disease (CKD); Severe sepsis; Pneumonia due to other specified bacteria; Traumatic subdural hemorrhage without loss of consciousness; Urinary tract infection, site not specified; Combined systolic (congestive) and diastolic (congestive) heart failure. Reason for transfer: Higher level of care. Accepting physician is Dr. Chandler. Condition is Fair. Problem is new. Symptoms have improved. jr8
[2020-05-17] MEDS ORDERED: ACETAMINOPHEN 500 MG TAB PO PRN (14:58)
[2020-05-17] MEDS ORDERED: ONDANSETRON 4 MG/2 ML VIAL IV PRN (14:58)
[2020-05-17] MEDS ORDERED: Levofloxacin500mg IV 500 MG/100 ML BAG IV SCH (15:00)
--- NOTE | 2020-05-17 15:31 | RAD REPORT ---
EXAM DESCRIPTION: CT - Head Brain Wo Cont - 05/17/2020 3:06 pm CLINICAL HISTORY: Head injury with headaches status post fall COMPARISON: 2018 TECHNIQUE: Computed axial tomography of the head was obtained. IV contrast was not requested. All CT scans are performed using dose optimization technique as appropriate and may include automated exposure control or mA/KV adjustment according to patient size. FINDINGS: Moderate to large bilateral subdural hematomas are present along the cerebral convexities. . They contain areas of increased and intermediate density. The adjacent sulci are compressed. No hydrocephalus . Fluid within the sinuses/ mastoids is not seen. IMPRESSION: Moderate to large bilateral subdural hematomas have the appearance of being a combinatio n of acute and subacute. Kenrick of the emergency room was notified
[2020-05-17 16:09] LABS: Protime INR 1.06
[2020-05-17] MEDS ORDERED: PIPER/TAZO/NS 2.25gm 2.25 GM/50 ML BAG IVPB SCH (17:00)
[2020-05-17 17:37] VITALS: TEMP 98.8
[2020-05-17 17:47] VITALS: BP 159/79; O2SAT 93
[2020-05-17] MEDS ORDERED: ALBUTEROL 2.5 MG/3 ML NEB SOL NEB SCH (20:00)
[2020-05-17] MEDS ORDERED: IPRATROPIUM BROM 0.5MG/2.5ML NEB SCH (20:00)
[2020-05-17] MEDS ORDERED: HEPARIN 5000 UNIT/ML 1 ML VIAL SQ SCH (21:00)
== END 2020-05-17 17:10 | disposition short-term general hospital (02) ==
LOC: ER 11:16 → ERHOLD 15:10 → UNDOADMIN 15:10 → ER 17:10
DX: J15.8 Pneumonia due to other specified bacteria (principal); N18.6 End stage renal disease; R65.20 Severe sepsis without septic shock; N39.0 Urinary tract infection, site not specified; S06.5X0A Traumatic subdural hemorrhage without loss of consciousness, initial encounter; I50.40 Unspecified combined systolic (congestive) and diastolic (congestive) heart failure; E11.22 Type 2 diabetes mellitus with diabetic chronic kidney disease; I12.0 Hypertensive chronic kidney disease with stage 5 chronic kidney disease or end stage renal disease; Z99.2 Dependence on renal dialysis; Z91.81 History of falling; Z20.828 Contact with and (suspected) exposure to other viral communicable diseases; Z91.048 Other nonmedicinal substance allergy status
CPT/HCPCS: 93005; 87040 ×2; 87088; 85025; 87086; 80048; 36415; 82550; 87205; 85610; 82947; 80076; 83605; 85730; 84484; 82553; 83690; 84145; 83880; 86140; 70450; 71045; 51702; 99285; U0002; J0360; J1940; J3370; J0692; J2930; 81003; 81015